=== PATIENT | female | born 1965 | race Caucasian/White ===

== ENCOUNTER 2016-05-03 00:23 | Inpatient (IN) | payer OTHER ==
[~2016-05-03] VITALS: Ht 162.6 cm; Wt 79.0 kg
[2016-05-03] VITALS (9 sets, daily range): BP systolic 106–166; BP diastolic 58–119
[~2016-05-03 00:23] MED LIST: ACETAMINOPHEN-H1 TA2 PO; ADDERALL 20 MG20 MG PO; ADDERALL XR20 MG PO; ALBUTEROL0.09 MG/A2 IH; AMOXICILLIN500 M2 PO; ANAPROX DS550 MG PO; AUGMENTIN 500 M1 TAB PO; FLAGYL500 MG PO; HYDR12.5C PO; K-TAB20 MEQ PO; LISINOPRIL10 M1 PO; LISINOPRIL20 MG PO; LOPRESSOR25 MG PO; MAGOX 400400 MG PO; MOBIC7.5 MG PO; MOTRIN800 MG PO; NEURONTIN300 MG PO; NEURONTIN600 MG PO; NEURONTIN800 MG PO; NICODERM C14 MG/24 H TD; ONDANSETRON H2 MG/ML PO; PANTOPRAZOLE SO40 MG PO; PEN-VEE K500 MG PO; PERCOCET 325 MG1 TA2 PO; REMERON45 M1 PO; ROBITUSSIN AC 110 ML PO; THERA TABS1 TAB PO; TRAMADOL HCL50 MG PO; ULTRAM50 MG PO; WELLBUTRIN SR150 MG PO; WELLBUTRIN SR200 MG PO; WELLBUTRIN100 M1 PO; Wellbutrin Sr100 MG PO; XANAX1 MG PO; ZOFRAN ODT4 MG SL
[2016-05-03 02:28] LABS: PROTHROMBIN TIME 10.6 SECONDS (9.0-12.4)
[2016-05-03 02:31] LABS: BILIRUBIN NEGATIVE (NEGATIVE); BLOOD NEGATIVE (NEGATIVE); CLARITY SL CLOUDY (CLEAR); COLOR YELLOW (YELLOW); GLUCOSE NEGATIVE (NEGATIVE); KETONE NEGATIVE (NEGATIVE); LEUKO ESTERASE 3+ (NEGATIVE); NITRITE POSITIVE (NEGATIVE); PROTEIN NEGATIVE (NEGATIVE); SPECIFIC GRAVITY <= 1.005 (1.005-1.030); UROBILINOGEN 0.2 E.U./dl (0.2-1.0)
[2016-05-03 02:35] LABS: ALBUMIN 3.2 gm/dl (3.1-4.5); ALKALINE PHOSPHATASE 215 U/L (45-117); BILIRUBIN, TOTAL 1.3 mg/dl (0.2-1.0); BUN 4 mg/dl (7-24); CARBON DIOXIDE 24 mmol/L (21-32); CHLORIDE 103 mmol/L (98-107); EST GLOM FILT AFRICAN AMERICAN > 60 ml/min; GLUCOSE 94 mg/dL (65-99); POTASSIUM 3.8 mmol/L (3.5-5.1); SGOT/AST 423 IU/L (3-35); SGPT/ALT 73 U/L (12-78); SODIUM 143 mmol/L (136-145); TOTAL PROTEIN 8.5 gm/dL (6.4-8.2)
[2016-05-03 02:39] LABS: MAGNESIUM 1.9 mg/dL (1.5-2.1)
[2016-05-03 02:41] LABS: C-REACTIVE PROTEIN < 0.29 MG/DL (0-0.3)
[2016-05-03 02:42] LABS: URINE AMPHETAMINES < 1000 (1000ng/ml); URINE BARBITURATES < 200 (200ng/ml); URINE COCAINE < 300 (300ng/ml)
[2016-05-03 02:45] LABS: HEMATOCRIT 36.4 % (37.0-47.0); HEMOGLOBIN 12.4 g/dl (12.0-16.0); MEAN CELL VOLUME 109.6 fl (81.0-99.0); MEAN CORPUSCULAR HGB 37.3 pg (27.0-31.0); MEAN CORPUSCULAR HGB CONC 34.1 g/dl (33.0-37.0); MEAN PLATELET VOLUME 9.8 fl (9.6-12.3); PLATELET COUNT AUTOMATED 169 10*3/uL (130-400); RED BLOOD COUNT 3.32 10*6/uL (4.10-5.10); RED CELL DISTRI WIDTH 16.8 % (0-14.5); WHITE BLOOD COUNT 5.1 10*3/uL (4.8-10.8)
[2016-05-03 02:56] LABS: WBC 21-30 wbc/hpf (0-5)
[2016-05-03 02:57] LABS: BACTERIA 2+
[2016-05-03 03:17] LABS: BASOPHIL # 0.1 10*3/uL (0-0.1); BASOPHILS 1 % (0-1); LYMPHOCYTE # 1.3 10*3/uL (1.3-4.4); MONOCYTE # 0.5 10*3/uL (0.1-1.0); NEUTROPHIL # 3.2 10*3/uL (2.3-7.9); NEUTROPHILS 63 % (47-73); PLATELET SUFFICIENCY NORMAL (NORMAL); TOTAL CELLS COUNTED 100 #CELLS
[2016-05-04] VITALS: BP 152/60
[2016-05-04 06:47] LABS: HEMATOCRIT 34.3 % (37.0-47.0); HEMOGLOBIN 11.1 g/dl (12.0-16.0); MEAN CORPUSCULAR HGB 37.1 pg (27.0-31.0); MEAN CORPUSCULAR HGB CONC 32.4 g/dl (33.0-37.0); MEAN PLATELET VOLUME 10.7 fl (9.6-12.3); NUCLEATED RED BLOOD CELL 0.5 % (0.0-0.0); RED BLOOD COUNT 2.99 10*6/uL (4.10-5.10); RED CELL DISTRI WIDTH 16.3 % (0-14.5); WHITE BLOOD COUNT 4.2 10*3/uL (4.8-10.8)
[2016-05-04 06:58] LABS: MEAN CELL VOLUME 114.7 fl (81.0-99.0); PLATELET COUNT AUTOMATED 108 10*3/uL (130-400)
[2016-05-04 07:19] LABS: INTERNATIONAL NORM RATIO 1.1 (2.0-3.5); PROTHROMBIN TIME 11.4 SECONDS (9.0-12.4)
[2016-05-04 07:20] LABS: BUN 6 mg/dl (7-24); CARBON DIOXIDE 27 mmol/L (21-32); CHLORIDE 106 mmol/L (98-107); CHOLESTEROL 111 mg/dL (<200); EST GLOM FILT AFRICAN AMERICAN > 60 ml/min; GLUCOSE 82 mg/dL (65-99); HDL CHOLESTEROL 54 mg/dl (40-60); LDL CHOLESTEROL 40 mg/dL (9-159); POTASSIUM 3.3 mmol/L (3.5-5.1); SODIUM 142 mmol/L (136-145); TRIGLYCERIDES 83 mg/dl (<150); VLDL CHOLESTEROL 17 mg/dL (6-40)
[2016-05-04 07:22] LABS: EOSINOPHILS 1 % (1-4); LYMPHOCYTE # 0.8 10*3/uL (1.3-4.4); NEUTROPHIL # 3.3 10*3/uL (2.3-7.9); NEUTROPHILS 79 % (47-73); TOTAL CELLS COUNTED 100 #CELLS
[2016-05-04 07:23] LABS: PLATELET SUFFICIENCY LOW (NORMAL); STOMATOCYTE MODERATE
[2016-05-04 08:00] VITALS: BP 112/78
[2016-05-04 12:00] VITALS: BP 122/74
[2016-05-04 16:00] VITALS: BP 133/77
[2016-05-05] VITALS: BP 113/78
[2016-05-05 07:05] LABS: HEMATOCRIT 33.8 % (37.0-47.0); HEMOGLOBIN 10.9 g/dl (12.0-16.0); MEAN CORPUSCULAR HGB 37.1 pg (27.0-31.0); MEAN CORPUSCULAR HGB CONC 32.2 g/dl (33.0-37.0); MEAN PLATELET VOLUME 10.7 fl (9.6-12.3); NUCLEATED RED BLOOD CELL 0.6 % (0.0-0.0); PLATELET COUNT AUTOMATED 93 10*3/uL (130-400); RED BLOOD COUNT 2.94 10*6/uL (4.10-5.10); RED CELL DISTRI WIDTH 16.3 % (0-14.5); WHITE BLOOD COUNT 3.4 10*3/uL (4.8-10.8)
[2016-05-05 07:10] LABS: BUN 5 mg/dl (7-24); CARBON DIOXIDE 20 mmol/L (21-32); CHLORIDE 112 mmol/L (98-107); EST GLOM FILT AFRICAN AMERICAN > 60 ml/min; GLUCOSE 97 mg/dL (65-99); POTASSIUM 3.7 mmol/L (3.5-5.1); SODIUM 143 mmol/L (136-145)
[2016-05-05 07:40] LABS: EOSINOPHILS 1 % (1-4); LYMPHOCYTE # 0.8 10*3/uL (1.3-4.4); MONOCYTE # 0.1 10*3/uL (0.1-1.0); NEUTROPHIL # 2.5 10*3/uL (2.3-7.9); NEUTROPHILS 73 % (47-73); PLATELET SUFFICIENCY LOW (NORMAL); STOMATOCYTE FEW; TOTAL CELLS COUNTED 100 #CELLS
[2016-05-05 08:00] VITALS: BP 135/86
[2016-05-05 12:00] VITALS: BP 157/110
[2016-05-05 16:00] VITALS: BP 134/88
[2016-05-05 20:00] VITALS: BP 142/77
[2016-05-06] VITALS: BP 136/72
[2016-05-06 06:23] LABS: HEMATOCRIT 31.4 % (37.0-47.0); HEMOGLOBIN 10.3 g/dl (12.0-16.0); MEAN CELL VOLUME 112.9 fl (81.0-99.0); MEAN CORPUSCULAR HGB 37.1 pg (27.0-31.0); MEAN CORPUSCULAR HGB CONC 32.8 g/dl (33.0-37.0); MEAN PLATELET VOLUME 10.7 fl (9.6-12.3); PLATELET COUNT AUTOMATED 100 10*3/uL (130-400); RED BLOOD COUNT 2.78 10*6/uL (4.10-5.10); RED CELL DISTRI WIDTH 16.3 % (0-14.5); WHITE BLOOD COUNT 2.9 10*3/uL (4.8-10.8)
[2016-05-06 07:10] LABS: BASOPHILS 1 % (0-1); EOSINOPHIL # 0.1 10*3/uL (0-0.4); EOSINOPHILS 3 % (1-4); LYMPHOCYTE # 0.9 10*3/uL (1.3-4.4); METAMYELOCYTES 1 % (0-0); MONOCYTE # 0.1 10*3/uL (0.1-1.0); NEUTROPHIL # 1.7 10*3/uL (2.3-7.9); NEUTROPHILS 60 % (47-73); PLATELET SUFFICIENCY LOW (NORMAL); POLYCHROMASIA SLIGHT; STOMATOCYTE FEW; TOTAL CELLS COUNTED 100 #CELLS
[2016-05-06 08:00] VITALS: BP 162/102
[2016-05-06 14:40] LABS: FOLIC ACID 2.09 ng/mL (>5.38)
[2016-05-29] MEDS ORDERED: LISINOPRIL20 MG PO (12:53)
[2016-06-01] MEDS ORDERED: ADDERALL XR20 MG PO (13:49)
[2016-06-01] MEDS ORDERED: WELLBUTRIN SR150 MG PO (13:49)
[2016-06-01] MEDS ORDERED: XANAX1 MG PO (13:49)
[2016-06-01] MEDS ORDERED: TRAMADOL HCL50 MG PO (13:49)
[2016-06-01] MEDS ORDERED: NEURONTIN600 MG PO (13:49)
[2016-06-01] MEDS ORDERED: ZOFRAN 4 MG ED2 TAB PO (16:23)
== END 2016-05-06 08:26 | disposition left against medical advice (07) | DRG 894 ==
LOC: ED 00:23 → 5E 05:56 → EDHOLD 05:56 → 5E 07:13
PROVIDERS: Emergency Medicine Emergency Medical Services; Family Medicine Adult Medicine; Internal Medicine
DX: F10.231 Alcohol dependence with withdrawal delirium (principal); E44.0 Moderate protein-calorie malnutrition; N39.0 Urinary tract infection, site not specified; F31.9 Bipolar disorder, unspecified; E83.51 Hypocalcemia; R25.1 Tremor, unspecified; D75.89 Other specified diseases of blood and blood-forming organs; F41.9 Anxiety disorder, unspecified; F17.200 Nicotine dependence, unspecified, uncomplicated; I10 Essential (primary) hypertension; B19.20 Unspecified viral hepatitis C without hepatic coma; E66.9 Obesity, unspecified; Z68.32 Body mass index [BMI] 32.0-32.9, adult; F10.221 Alcohol dependence with intoxication delirium

== ENCOUNTER 2016-05-22 13:06 | Emergency (ER) | payer OTHER ==
[~2016-05-22] VITALS: Wt 86.2 kg
[2016-05-22 13:25] VITALS: BP 117/89
[2016-05-22] MEDS ORDERED: ADDERALL XR20 MG PO (13:25)
[2016-05-22] MEDS ORDERED: PROCTOFOAM-HC 11 FOA RC (13:48)
[2016-05-22] MEDS ORDERED: COL-RITE100 M1 PO (13:48)
[2016-05-29] MEDS ORDERED: LISINOPRIL20 MG PO (12:53)
[2016-06-01] MEDS ORDERED: WELLBUTRIN SR150 MG PO (13:49)
[2016-06-01] MEDS ORDERED: NEURONTIN600 MG PO (13:49)
[2016-06-01] MEDS ORDERED: XANAX1 MG PO (13:49)
[2016-06-01] MEDS ORDERED: TRAMADOL HCL50 MG PO (13:49)
[2016-06-01] MEDS ORDERED: ADDERALL XR20 MG PO (13:49)
[2016-06-01] MEDS ORDERED: ZOFRAN 4 MG ED2 TAB PO (16:23)
== END 2016-05-22 14:05 | disposition home or self-care (01) ==
LOC: ED 13:06
DX: K62.89 Other specified diseases of anus and rectum (principal); F12.10 Cannabis abuse, uncomplicated; F17.200 Nicotine dependence, unspecified, uncomplicated; Z88.8 Allergy status to other drugs, medicaments and biological substances

== ENCOUNTER 2016-07-29 20:55 | Inpatient (IN) | payer OTHER ==
[~2016-07-29] VITALS: Ht 160 cm; Wt 82.6 kg
[~2016-07-29 20:55] MED LIST changes: +COL-RITE100 M1 PO; +PROCTOFOAM-HC 11 FOA RC; +ZOFRAN 4 MG ED2 TAB PO
[2016-07-29 21:04] VITALS: BP 122/81
[2016-07-29 21:22] VITALS: BP 113/90
[2016-07-29 21:25] LABS: BASO # 0.1 10*3/uL (0.0-0.1); BASO % 0.6 % (0.0-1.0); EOS % 0.3 % (1.0-4.0); HEMATOCRIT 33.6 % (37.0-47.0); LYMPH # 3.1 10*3/uL (1.3-4.4); LYMPH % 35.4 % (27.0-41.0); MEAN CELL VOLUME 102.8 fl (81.0-99.0); MEAN CORPUSCULAR HGB 36.7 pg (27.0-31.0); MEAN CORPUSCULAR HGB CONC 35.7 g/dl (33.0-37.0); MEAN PLATELET VOLUME 10.1 fl (9.6-12.3); MONO # 0.6 10*3/uL (0.1-1.0); MONO % 6.4 % (3.0-9.0); NUCLEATED RED BLOOD CELL 0.3 % (0.0-0.0); PLATELET COUNT AUTOMATED 200 10*3/uL (130-400); RED BLOOD COUNT 3.27 10*6/uL (4.10-5.10); RED CELL DISTRI WIDTH 18.7 % (0-14.5); WHITE BLOOD COUNT 8.8 10*3/uL (4.8-10.8)
[2016-07-29 21:36] VITALS: BP 118/88
[2016-07-29 21:36] LABS: INTERNATIONAL NORM RATIO 1.1 (2.0-3.5); PROTHROMBIN TIME 11.8 SECONDS (9.0-12.4)
[2016-07-29 21:45] LABS: ALBUMIN 2.2 gm/dl (3.1-4.5); ALKALINE PHOSPHATASE 315 U/L (45-117); BILIRUBIN, TOTAL 3.4 mg/dl (0.2-1.0); BUN 2 mg/dl (7-24); CARBON DIOXIDE 21 mmol/L (21-32); CHLORIDE 93 mmol/L (98-107); CKMB 1.3 ng/ml (0.5-3.6); CPK 64 U/L (26-192); EST GLOM FILT AFRICAN AMERICAN > 60 ml/min; GLUCOSE 97 mg/dL (65-99); POTASSIUM 2.8 mmol/L (3.5-5.1); SGOT/AST 243 IU/L (3-35); SGPT/ALT 45 U/L (12-78); SODIUM 134 mmol/L (136-145); TOTAL PROTEIN 7.1 gm/dL (6.4-8.2)
[2016-07-29 21:49] LABS: TROPONIN I < 0.015 ng/ml (<0.045)
[2016-07-29 21:56] VITALS: BP 103/65; BP 110/88
[2016-07-29 22:44] VITALS: BP 108/63
[2016-07-30 00:32] VITALS: BP 110/72
[2016-07-30 00:51] LABS: CKMB 1.8 ng/ml (0.5-3.6); CPK 52 U/L (26-192)
[2016-07-30 00:52] LABS: TROPONIN I < 0.015 ng/ml (<0.045)
[2016-07-30] MEDS ORDERED: REMERON45 M1 PO (01:10)
[2016-07-30] MEDS ORDERED: MULTI VITAMINS1 TAB PO (01:10)
[2016-07-30 01:28] VITALS: BP 103/59; BP 103/72
[2016-07-30 04:00] VITALS: BP 106/76
[2016-07-30 06:23] LABS: BASO % 0.4 % (0.0-1.0); EOS % 0.2 % (1.0-4.0); HEMATOCRIT 30.2 % (37.0-47.0); HEMOGLOBIN 10.3 g/dl (12.0-16.0); LYMPH # 1.1 10*3/uL (1.3-4.4); LYMPH % 20.4 % (27.0-41.0); MEAN CELL VOLUME 105.6 fl (81.0-99.0); MEAN CORPUSCULAR HGB CONC 34.1 g/dl (33.0-37.0); MEAN PLATELET VOLUME 10.5 fl (9.6-12.3); MONO # 0.4 10*3/uL (0.1-1.0); MONO % 6.9 % (3.0-9.0); NEUT # 3.8 10*3/uL (2.3-7.9); NEUT % 71.7 % (47.0-73.0); PLATELET COUNT AUTOMATED 171 10*3/uL (130-400); RED BLOOD COUNT 2.86 10*6/uL (4.10-5.10); RED CELL DISTRI WIDTH 19.7 % (0-14.5); WHITE BLOOD COUNT 5.4 10*3/uL (4.8-10.8)
[2016-07-30 06:32] LABS: CKMB 0.9 ng/ml (0.5-3.6); CPK 50 U/L (26-192)
[2016-07-30 06:33] LABS: TROPONIN I < 0.015 ng/ml (<0.045)
[2016-07-30 06:45] LABS: INTERNATIONAL NORM RATIO 1.1 (2.0-3.5)
[2016-07-30 06:49] LABS: CHLORIDE 103 mmol/L (98-107); POTASSIUM 2.7 mmol/L (3.5-5.1); SODIUM 140 mmol/L (136-145)
[2016-07-30 07:07] LABS: ALKALINE PHOSPHATASE 273 U/L (45-117); BILIRUBIN, DIRECT 2.9 mg/dL (0.0-0.2); BILIRUBIN, TOTAL 3.3 mg/dl (0.2-1.0); BUN 2 mg/dl (7-24); CARBON DIOXIDE 21 mmol/L (21-32); EST GLOM FILT AFRICAN AMERICAN > 60 ml/min; GLUCOSE 106 mg/dL (65-99); MAGNESIUM 1.8 mg/dL (1.5-2.1); PHOSPHOROUS 2.9 mg/dL (2.5-4.9); SGOT/AST 242 IU/L (3-35); SGPT/ALT 43 U/L (12-78); TOTAL PROTEIN 6.4 gm/dL (6.4-8.2)
[2016-07-30 08:00] VITALS: BP 120/85
[2016-07-30 12:14] LABS: CKMB 1.2 ng/ml (0.5-3.6); CPK 51 U/L (26-192); TROPONIN I < 0.015 ng/ml (<0.045)
[2016-07-30 16:00] VITALS: BP 130/98
[2016-07-30 20:00] VITALS: BP 100/70
[2016-07-31] VITALS (9 sets, daily range): BP systolic 110–150; BP diastolic 76–98
[2016-07-31 06:04] LABS: BILIRUBIN, TOTAL 5.4 mg/dl (0.2-1.0); BUN 3 mg/dl (7-24); CARBON DIOXIDE 22 mmol/L (21-32); CHLORIDE 106 mmol/L (98-107); EST GLOM FILT AFRICAN AMERICAN > 60 ml/min; GLUCOSE 88 mg/dL (65-99); POTASSIUM 3.2 mmol/L (3.5-5.1); SGOT/AST 225 IU/L (3-35); SGPT/ALT 41 U/L (12-78); SODIUM 140 mmol/L (136-145); TOTAL PROTEIN 6.5 gm/dL (6.4-8.2)
[2016-07-31 06:14] LABS: ALKALINE PHOSPHATASE 299 U/L (45-117)
[2016-07-31 06:48] LABS: HEMATOCRIT 30.8 % (37.0-47.0); HEMOGLOBIN 10.2 g/dl (12.0-16.0); MEAN CORPUSCULAR HGB 36.4 pg (27.0-31.0); MEAN CORPUSCULAR HGB CONC 33.1 g/dl (33.0-37.0); MEAN PLATELET VOLUME 10.9 fl (9.6-12.3); NUCLEATED RED BLOOD CELL 0.1 10*3/uL (0.0-0.0); NUCLEATED RED BLOOD CELL 0.9 % (0.0-0.0); PLATELET COUNT AUTOMATED 153 10*3/uL (130-400); RED CELL DISTRI WIDTH 19.9 % (0-14.5); WHITE BLOOD COUNT 5.8 10*3/uL (4.8-10.8)
[2016-07-31 07:36] LABS: BASOPHIL # 0.1 10*3/uL (0-0.1); BASOPHILS 1 % (0-1); LYMPHOCYTE # 0.9 10*3/uL (1.3-4.4); MONOCYTE # 0.3 10*3/uL (0.1-1.0); NEUTROPHIL # 4.5 10*3/uL (2.3-7.9); NEUTROPHILS 78 % (47-73); SPHEROCYTES FEW; TOTAL CELLS COUNTED 100 #CELLS
[2016-07-31 07:37] LABS: PLATELET SUFFICIENCY NORMAL (NORMAL); TARGET CELLS MODERATE
[2016-08-01] VITALS: BP 128/90
[2016-08-01 04:00] VITALS: BP 128/100
[2016-08-01 05:39] LABS: ALKALINE PHOSPHATASE 304 U/L (45-117); BUN 3 mg/dl (7-24); CARBON DIOXIDE 26 mmol/L (21-32); CHLORIDE 105 mmol/L (98-107); EST GLOM FILT AFRICAN AMERICAN > 60 ml/min; GLUCOSE 97 mg/dL (65-99); SGOT/AST 185 IU/L (3-35); SGPT/ALT 44 U/L (12-78); SODIUM 141 mmol/L (136-145); TOTAL PROTEIN 6.5 gm/dL (6.4-8.2)
[2016-08-01 06:51] LABS: HEMATOCRIT 31.2 % (37.0-47.0); HEMOGLOBIN 9.9 g/dl (12.0-16.0); MEAN CORPUSCULAR HGB 36.3 pg (27.0-31.0); MEAN CORPUSCULAR HGB CONC 31.7 g/dl (33.0-37.0); MEAN PLATELET VOLUME 10.5 fl (9.6-12.3); NUCLEATED RED BLOOD CELL 0.1 10*3/uL (0.0-0.0); NUCLEATED RED BLOOD CELL 2.2 % (0.0-0.0); PLATELET COUNT AUTOMATED 156 10*3/uL (130-400); RED BLOOD COUNT 2.73 10*6/uL (4.10-5.10); RED CELL DISTRI WIDTH 20.4 % (0-14.5); WHITE BLOOD COUNT 5.9 10*3/uL (4.8-10.8)
[2016-08-01 06:52] LABS: MEAN CELL VOLUME 114.3 fl (81.0-99.0)
[2016-08-01 07:37] LABS: BASOPHIL # 0.1 10*3/uL (0-0.1); BASOPHILS 1 % (0-1); LYMPHOCYTE # 0.6 10*3/uL (1.3-4.4); MONOCYTE # 0.4 10*3/uL (0.1-1.0); MYELOCYTES 1 % (0-0); NEUTROPHIL # 4.8 10*3/uL (2.3-7.9); NEUTROPHILS 82 % (47-73); PLATELET SUFFICIENCY NORMAL (NORMAL); TARGET CELLS MODERATE; TOTAL CELLS COUNTED 100 #CELLS
[2016-08-01 08:00] VITALS: BP 180/89
[2016-08-01 12:00] VITALS: BP 120/70
[2016-08-01 20:00] VITALS: BP 131/90
[2016-08-02] VITALS: BP 130/84
[2016-08-02 04:00] VITALS: BP 126/86
[2016-08-02 06:09] LABS: HEMATOCRIT 30.4 % (37.0-47.0); HEMOGLOBIN 9.9 g/dl (12.0-16.0); MEAN CELL VOLUME 115.2 fl (81.0-99.0); MEAN CORPUSCULAR HGB 37.5 pg (27.0-31.0); MEAN CORPUSCULAR HGB CONC 32.6 g/dl (33.0-37.0); MEAN PLATELET VOLUME 10.6 fl (9.6-12.3); NUCLEATED RED BLOOD CELL 0.1 10*3/uL (0.0-0.0); NUCLEATED RED BLOOD CELL 1.8 % (0.0-0.0); PLATELET COUNT AUTOMATED 153 10*3/uL (130-400); RED BLOOD COUNT 2.64 10*6/uL (4.10-5.10); RED CELL DISTRI WIDTH 20.9 % (0-14.5); WHITE BLOOD COUNT 6.2 10*3/uL (4.8-10.8)
[2016-08-02 06:33] LABS: ALBUMIN 2.1 gm/dl (3.1-4.5); ALKALINE PHOSPHATASE 275 U/L (45-117); BILIRUBIN, TOTAL 4.8 mg/dl (0.2-1.0); BUN 3 mg/dl (7-24); CARBON DIOXIDE 25 mmol/L (21-32); CHLORIDE 108 mmol/L (98-107); EST GLOM FILT AFRICAN AMERICAN > 60 ml/min; GLUCOSE 106 mg/dL (65-99); POTASSIUM 3.6 mmol/L (3.5-5.1); SGOT/AST 146 IU/L (3-35); SGPT/ALT 39 U/L (12-78); SODIUM 144 mmol/L (136-145)
[2016-08-02 06:52] LABS: LYMPHOCYTE # 0.9 10*3/uL (1.3-4.4); MONOCYTE # 0.4 10*3/uL (0.1-1.0); NEUTROPHILS 80 % (47-73); PLATELET SUFFICIENCY NORMAL (NORMAL); POLYCHROMASIA SLIGHT; TARGET CELLS MODERATE; TOTAL CELLS COUNTED 100 #CELLS
[2016-08-02 08:00] VITALS: BP 135/91; BP 140/80
[2016-08-02 12:00] VITALS: BP 104/79
[2016-08-02 16:00] VITALS: BP 105/79
[2016-08-02 20:00] VITALS: BP 128/85
[2016-08-03] VITALS: BP 106/75
[2016-08-03 04:00] VITALS: BP 153/95
[2016-08-03 05:49] LABS: BILIRUBIN, TOTAL 4.2 mg/dl (0.2-1.0); BUN 3 mg/dl (7-24); CARBON DIOXIDE 28 mmol/L (21-32); CHLORIDE 106 mmol/L (98-107); EST GLOM FILT AFRICAN AMERICAN > 60 ml/min; GLUCOSE 97 mg/dL (65-99); POTASSIUM 3.6 mmol/L (3.5-5.1); SGOT/AST 108 IU/L (3-35); SGPT/ALT 35 U/L (12-78); SODIUM 142 mmol/L (136-145); TOTAL PROTEIN 6.3 gm/dL (6.4-8.2)
[2016-08-03 05:50] LABS: ALKALINE PHOSPHATASE 243 U/L (45-117)
[2016-08-03 05:59] LABS: HEMATOCRIT 30.8 % (37.0-47.0); HEMOGLOBIN 9.7 g/dl (12.0-16.0); MEAN CELL VOLUME 116.7 fl (81.0-99.0); MEAN CORPUSCULAR HGB 36.7 pg (27.0-31.0); MEAN CORPUSCULAR HGB CONC 31.5 g/dl (33.0-37.0); MEAN PLATELET VOLUME 10.7 fl (9.6-12.3); NUCLEATED RED BLOOD CELL 0.6 % (0.0-0.0); PLATELET COUNT AUTOMATED 152 10*3/uL (130-400); RED BLOOD COUNT 2.64 10*6/uL (4.10-5.10); RED CELL DISTRI WIDTH 22.1 % (0-14.5); WHITE BLOOD COUNT 5.1 10*3/uL (4.8-10.8)
[2016-08-03 07:18] LABS: LYMPHOCYTE # 0.7 10*3/uL (1.3-4.4); MONOCYTE # 0.3 10*3/uL (0.1-1.0); MYELOCYTES 1 % (0-0); NEUTROPHILS 79 % (47-73); PLATELET SUFFICIENCY NORMAL (NORMAL); SPHEROCYTES FEW; TARGET CELLS MANY; TOTAL CELLS COUNTED 100 #CELLS
[2016-08-03 07:21] LABS: POLYCHROMASIA SLIGHT
[2016-08-03 08:00] VITALS: BP 135/91
[2016-08-03 12:00] VITALS: BP 147/84
[2016-08-03] MEDS ORDERED: WELLBUTRIN SR150 MG PO (12:45)
[2016-08-03] MEDS ORDERED: CLINDAMYCIN HC300 MG PO (12:45)
[2016-08-03] MEDS ORDERED: Anusol Hc,Anuco25 MG R (12:45)
[2016-08-03] MEDS ORDERED: NEURONTIN600 MG PO (12:45)
[2016-08-03] MEDS ORDERED: PROTONIX40 MG PO (12:45)
[2016-08-03 16:00] VITALS: BP 127/87
== END 2016-08-03 17:40 | disposition home or self-care (01) | DRG 896 ==
LOC: ED 20:55 → ICCU 23:36 → EDHOLD 23:36 → ICCU 23:54
PROVIDERS: Emergency Medicine Emergency Medical Services; Internal Medicine; Student in an Organized Health Care Education/Training Program
PROC: 0DB68ZX Excision of Stomach, Via Natural or Artificial Opening Endoscopic, Diagnostic (ICD-10-PCS; principal; 2016-08-03)
PROC: 0DBE8ZX Excision of Large Intestine, Via Natural or Artificial Opening Endoscopic, Diagnostic (ICD-10-PCS; 2016-08-03)
DX: F10.129 Alcohol abuse with intoxication, unspecified (principal); E43 Unspecified severe protein-calorie malnutrition; J69.0 Pneumonitis due to inhalation of food and vomit; G93.41 Metabolic encephalopathy; I11.0 Hypertensive heart disease with heart failure; I50.32 Chronic diastolic (congestive) heart failure; K22.10 Ulcer of esophagus without bleeding; E87.6 Hypokalemia; F41.9 Anxiety disorder, unspecified; F31.9 Bipolar disorder, unspecified; M19.90 Unspecified osteoarthritis, unspecified site; D53.9 Nutritional anemia, unspecified; R00.0 Tachycardia, unspecified; E80.6 Other disorders of bilirubin metabolism; K20.9 Esophagitis, unspecified; K29.20 Alcoholic gastritis without bleeding; K62.89 Other specified diseases of anus and rectum; R74.0 Nonspecific elevation of levels of transaminase and lactic acid dehydrogenase [LDH]; Z68.30 Body mass index [BMI] 30.0-30.9, adult; Z82.49 Family history of ischemic heart disease and other diseases of the circulatory system; Z88.8 Allergy status to other drugs, medicaments and biological substances; Z79.899 Other long term (current) drug therapy; Z86.19 Personal history of other infectious and parasitic diseases

== ENCOUNTER 2016-08-09 09:25 | Inpatient (IN) | payer OTHER ==
[~2016-08-09] VITALS: Ht 162.5 cm; Wt 81.8 kg
[~2016-08-09 09:25] MED LIST changes: +Anusol Hc,Anuco25 MG R; +CLINDAMYCIN HC300 MG PO; +MULTI VITAMINS1 TAB PO; +PROTONIX40 MG PO
[2016-08-09 09:30] VITALS: BP 126/100
[2016-08-09 10:02] LABS: HEMATOCRIT 32.6 % (37.0-47.0); HEMOGLOBIN 10.3 g/dl (12.0-16.0); MEAN CELL VOLUME 118.5 fl (81.0-99.0); MEAN CORPUSCULAR HGB 37.5 pg (27.0-31.0); MEAN CORPUSCULAR HGB CONC 31.6 g/dl (33.0-37.0); MEAN PLATELET VOLUME 10.6 fl (9.6-12.3); PLATELET COUNT AUTOMATED 251 10*3/uL (130-400); RED BLOOD COUNT 2.75 10*6/uL (4.10-5.10); RED CELL DISTRI WIDTH 19.3 % (0-14.5); WHITE BLOOD COUNT 7.8 10*3/uL (4.8-10.8)
[2016-08-09 10:13] LABS: INTERNATIONAL NORM RATIO 1.1 (2.0-3.5); PROTHROMBIN TIME 11.5 SECONDS (9.0-12.4)
[2016-08-09 10:19] LABS: ALKALINE PHOSPHATASE 155 U/L (45-117); BILIRUBIN, DIRECT 2.2 mg/dL (0.0-0.2); BILIRUBIN, TOTAL 2.8 mg/dl (0.2-1.0); BUN 4 mg/dl (7-24); CARBON DIOXIDE 26 mmol/L (21-32); CHLORIDE 106 mmol/L (98-107); EST GLOM FILT AFRICAN AMERICAN > 60 ml/min; GLUCOSE 113 mg/dL (65-99); SGOT/AST 52 IU/L (3-35); SGPT/ALT 25 U/L (12-78); SODIUM 141 mmol/L (136-145); TOTAL PROTEIN 6.6 gm/dL (6.4-8.2)
[2016-08-09 10:27] LABS: LYMPHOCYTE # 1.4 10*3/uL (1.3-4.4); MONOCYTE # 0.2 10*3/uL (0.1-1.0); NEUTROPHIL # 6.2 10*3/uL (2.3-7.9); NEUTROPHILS 79 % (47-73); TOTAL CELLS COUNTED 100 #CELLS
[2016-08-09 10:28] LABS: PLATELET SUFFICIENCY NORMAL (NORMAL)
[2016-08-09 10:29] LABS: STOMATOCYTE FEW
[2016-08-09 10:32] LABS: BILIRUBIN NEGATIVE (NEGATIVE); BLOOD TRACE-LYSED (NEGATIVE); CLARITY SL CLOUDY (CLEAR); COLOR YELLOW (YELLOW); GLUCOSE NEGATIVE (NEGATIVE); KETONE NEGATIVE (NEGATIVE); LEUKO ESTERASE 3+ (NEGATIVE); NITRITE POSITIVE (NEGATIVE); PH 6.5 (5.0-9.0); PROTEIN NEGATIVE (NEGATIVE); UROBILINOGEN 0.2 E.U./dl (0.2-1.0)
[2016-08-09 10:43] LABS: URINE AMPHETAMINES < 1000 (1000ng/ml); URINE BARBITURATES < 200 (200ng/ml); URINE COCAINE < 300 (300ng/ml)
[2016-08-09 10:46] LABS: BACTERIA 4+; URINE REFLEX COMMENT YES (NO); WBC 41-50 wbc/hpf (0-5)
[2016-08-09 10:58] VITALS: BP 147/93
[2016-08-09 11:59] LABS: LA>2 REFLEX 2 HR DRAW NOW
[2016-08-09 12:00] VITALS: BP 130/86
[2016-08-09 16:00] VITALS: BP 109/67
[2016-08-09 18:21] LABS: CKMB 0.5 ng/ml (0.5-3.6); CPK 28 U/L (26-192); TROPONIN I < 0.015 ng/ml (<0.045)
[2016-08-09 20:00] VITALS: BP 102/77
[2016-08-10] VITALS (7 sets, daily range): BP systolic 99–152; BP diastolic 73–98
[2016-08-10 00:50] LABS: CPK 24 U/L (26-192)
[2016-08-10 00:52] LABS: CKMB < 0.5 ng/ml (0.5-3.6); TROPONIN I < 0.015 ng/ml (<0.045)
[2016-08-10 06:02] LABS: HEMOGLOBIN 9.3 g/dl (12.0-16.0); MEAN CORPUSCULAR HGB 36.9 pg (27.0-31.0); MEAN PLATELET VOLUME 10.5 fl (9.6-12.3); NUCLEATED RED BLOOD CELL 0.4 % (0.0-0.0); PLATELET COUNT AUTOMATED 225 10*3/uL (130-400); RED BLOOD COUNT 2.52 10*6/uL (4.10-5.10); RED CELL DISTRI WIDTH 18.3 % (0-14.5); WHITE BLOOD COUNT 5.7 10*3/uL (4.8-10.8)
[2016-08-10 06:20] LABS: INTERNATIONAL NORM RATIO 1.1 (2.0-3.5); PROTHROMBIN TIME 11.2 SECONDS (9.0-12.4)
[2016-08-10 06:21] LABS: CPK 21 U/L (26-192)
[2016-08-10 06:22] LABS: CKMB < 0.5 ng/ml (0.5-3.6)
[2016-08-10 06:23] LABS: TROPONIN I < 0.015 ng/ml (<0.045)
[2016-08-10 06:34] LABS: ALBUMIN 1.8 gm/dl (3.1-4.5); ALKALINE PHOSPHATASE 131 U/L (45-117); BILIRUBIN, TOTAL 2.1 mg/dl (0.2-1.0); BUN 5 mg/dl (7-24); CARBON DIOXIDE 24 mmol/L (21-32); CHLORIDE 111 mmol/L (98-107); EST GLOM FILT AFRICAN AMERICAN > 60 ml/min; GLUCOSE 92 mg/dL (65-99); MAGNESIUM 1.5 mg/dL (1.5-2.1); POTASSIUM 3.5 mmol/L (3.5-5.1); SGOT/AST 49 IU/L (3-35); SGPT/ALT 21 U/L (12-78); SODIUM 144 mmol/L (136-145); TOTAL PROTEIN 5.9 gm/dL (6.4-8.2)
[2016-08-10 07:01] LABS: EOSINOPHIL # 0.1 10*3/uL (0-0.4); EOSINOPHILS 2 % (1-4); LYMPHOCYTE # 1.5 10*3/uL (1.3-4.4); MONOCYTE # 0.6 10*3/uL (0.1-1.0); NEUTROPHIL # 3.5 10*3/uL (2.3-7.9); NEUTROPHILS 62 % (47-73); TOTAL CELLS COUNTED 100 #CELLS
[2016-08-10 07:02] LABS: PLATELET SUFFICIENCY NORMAL (NORMAL); POLYCHROMASIA SLIGHT
[2016-08-11] VITALS: BP 124/88
[2016-08-11 08:00] VITALS: BP 137/85
[2016-08-11 08:49] LABS: HEMATOCRIT 34.1 % (37.0-47.0); HEMOGLOBIN 10.6 g/dl (12.0-16.0); MEAN CELL VOLUME 121.8 fl (81.0-99.0); MEAN CORPUSCULAR HGB 37.9 pg (27.0-31.0); MEAN CORPUSCULAR HGB CONC 31.1 g/dl (33.0-37.0); PLATELET COUNT AUTOMATED 279 10*3/uL (130-400); RED CELL DISTRI WIDTH 17.4 % (0-14.5); WHITE BLOOD COUNT 6.6 10*3/uL (4.8-10.8)
[2016-08-11 09:36] LABS: LYMPHOCYTE # 1.3 10*3/uL (1.3-4.4); MONOCYTE # 0.5 10*3/uL (0.1-1.0); NEUTROPHIL # 4.8 10*3/uL (2.3-7.9); NEUTROPHILS 73 % (47-73); PLATELET SUFFICIENCY NORMAL (NORMAL); TOTAL CELLS COUNTED 100 #CELLS
[2016-08-11 11:15] LABS: URINE AMPHETAMINES < 1000 (1000ng/ml); URINE BARBITURATES < 200 (200ng/ml); URINE COCAINE < 300 (300ng/ml)
[2016-08-11 12:00] VITALS: BP 134/90
[2016-08-11 16:00] VITALS: BP 113/84
[2016-08-11 20:00] VITALS: BP 127/86
[2016-08-11 21:05] LABS: HEPATITIS C QUANTITATION 190000 IU/mL (.)
[2016-08-12] VITALS: BP 129/85
[2016-08-12 07:02] LABS: HEMATOCRIT 35.1 % (37.0-47.0); MEAN CORPUSCULAR HGB 37.3 pg (27.0-31.0); MEAN CORPUSCULAR HGB CONC 31.3 g/dl (33.0-37.0); MEAN PLATELET VOLUME 10.1 fl (9.6-12.3); PLATELET COUNT AUTOMATED 323 10*3/uL (130-400); RED BLOOD COUNT 2.95 10*6/uL (4.10-5.10); RED CELL DISTRI WIDTH 17.1 % (0-14.5); WHITE BLOOD COUNT 6.7 10*3/uL (4.8-10.8)
[2016-08-12 07:22] LABS: ALBUMIN 2.1 gm/dl (3.1-4.5); ALKALINE PHOSPHATASE 151 U/L (45-117); BILIRUBIN, TOTAL 1.9 mg/dl (0.2-1.0); BUN 5 mg/dl (7-24); CARBON DIOXIDE 23 mmol/L (21-32); CHLORIDE 111 mmol/L (98-107); EST GLOM FILT AFRICAN AMERICAN > 60 ml/min; GLUCOSE 80 mg/dL (65-99); SGOT/AST 65 IU/L (3-35); SGPT/ALT 22 U/L (12-78); SODIUM 145 mmol/L (136-145); TOTAL PROTEIN 7.1 gm/dL (6.4-8.2)
[2016-08-12 08:00] VITALS: BP 133/88
[2016-08-12 08:03] LABS: EOSINOPHIL # 0.1 10*3/uL (0-0.4); EOSINOPHILS 1 % (1-4); LYMPHOCYTE # 2.1 10*3/uL (1.3-4.4); MONOCYTE # 0.5 10*3/uL (0.1-1.0); NEUTROPHILS 60 % (47-73); PLATELET SUFFICIENCY NORMAL (NORMAL); TOTAL CELLS COUNTED 100 #CELLS
[2016-08-12 16:00] VITALS: BP 138/90
[2016-08-13] VITALS: BP 140/84
[2016-08-13 06:47] LABS: HEMATOCRIT 32.4 % (37.0-47.0); HEMOGLOBIN 10.3 g/dl (12.0-16.0); MEAN CELL VOLUME 119.1 fl (81.0-99.0); MEAN CORPUSCULAR HGB 37.9 pg (27.0-31.0); MEAN CORPUSCULAR HGB CONC 31.8 g/dl (33.0-37.0); MEAN PLATELET VOLUME 10.1 fl (9.6-12.3); PLATELET COUNT AUTOMATED 310 10*3/uL (130-400); RED BLOOD COUNT 2.72 10*6/uL (4.10-5.10); RED CELL DISTRI WIDTH 16.5 % (0-14.5); WHITE BLOOD COUNT 7.2 10*3/uL (4.8-10.8)
[2016-08-13 07:06] LABS: BASOPHIL # 0.2 10*3/uL (0-0.1); BASOPHILS 3 % (0-1); EOSINOPHIL # 0.1 10*3/uL (0-0.4); EOSINOPHILS 1 % (1-4); LYMPHOCYTE # 1.4 10*3/uL (1.3-4.4); MONOCYTE # 0.4 10*3/uL (0.1-1.0); NEUTROPHIL # 5.2 10*3/uL (2.3-7.9); NEUTROPHILS 72 % (47-73); PLATELET SUFFICIENCY NORMAL (NORMAL); POLYCHROMASIA SLIGHT; TOTAL CELLS COUNTED 100 #CELLS
[2016-08-13 07:14] LABS: ALBUMIN 2.1 gm/dl (3.1-4.5); ALKALINE PHOSPHATASE 127 U/L (45-117); BILIRUBIN, TOTAL 1.7 mg/dl (0.2-1.0); BUN 4 mg/dl (7-24); CARBON DIOXIDE 24 mmol/L (21-32); CHLORIDE 108 mmol/L (98-107); EST GLOM FILT AFRICAN AMERICAN > 60 ml/min; GLUCOSE 88 mg/dL (65-99); POTASSIUM 3.8 mmol/L (3.5-5.1); SGOT/AST 66 IU/L (3-35); SGPT/ALT 22 U/L (12-78); SODIUM 141 mmol/L (136-145); TOTAL PROTEIN 6.7 gm/dL (6.4-8.2)
[2016-08-13 08:18] VITALS: BP 127/80
[2016-08-13 12:01] VITALS: BP 124/78
[2016-08-13] MEDS ORDERED: LOPRESSOR25 MG PO (13:20)
[2016-08-13] MEDS ORDERED: NAPROSYN EC375 MG PO (13:22)
== END 2016-08-13 14:59 | disposition home or self-care (01) | DRG 689 ==
LOC: ED 09:25 → 4E 11:01 → EDHOLD 11:01 → 4E 11:31
PROVIDERS: Emergency Medicine; Internal Medicine; Internal Medicine Hospice and Palliative Medicine; Student in an Organized Health Care Education/Training Program
DX: N39.0 Urinary tract infection, site not specified (principal); E43 Unspecified severe protein-calorie malnutrition; I50.32 Chronic diastolic (congestive) heart failure; I11.0 Hypertensive heart disease with heart failure; R18.8 Other ascites; R10.9 Unspecified abdominal pain; R74.8 Abnormal levels of other serum enzymes; F31.9 Bipolar disorder, unspecified; B18.2 Chronic viral hepatitis C; F10.10 Alcohol abuse, uncomplicated; D53.9 Nutritional anemia, unspecified; E80.6 Other disorders of bilirubin metabolism; M19.90 Unspecified osteoarthritis, unspecified site; F17.200 Nicotine dependence, unspecified, uncomplicated; B96.1 Klebsiella pneumoniae [K. pneumoniae] as the cause of diseases classified elsewhere; Z68.30 Body mass index [BMI] 30.0-30.9, adult; Z82.49 Family history of ischemic heart disease and other diseases of the circulatory system; Z88.8 Allergy status to other drugs, medicaments and biological substances; Z79.899 Other long term (current) drug therapy

== ENCOUNTER 2016-08-23 09:50 | Emergency (ER) | payer OTHER ==
[~2016-08-23] VITALS: Ht 160 cm; Wt 86.2 kg
[~2016-08-23 09:50] MED LIST changes: +NAPROSYN EC375 MG PO
[2016-08-23 10:41] LABS: HEMATOCRIT 35.7 % (37.0-47.0); HEMOGLOBIN 11.6 g/dl (12.0-16.0); MEAN CELL VOLUME 110.9 fl (81.0-99.0); MEAN CORPUSCULAR HGB CONC 32.5 g/dl (33.0-37.0); MEAN PLATELET VOLUME 10.4 fl (9.6-12.3); PLATELET COUNT AUTOMATED 234 10*3/uL (130-400); RED BLOOD COUNT 3.22 10*6/uL (4.10-5.10); RED CELL DISTRI WIDTH 14.1 % (0-14.5); WHITE BLOOD COUNT 7.5 10*3/uL (4.8-10.8)
[2016-08-23 10:50] LABS: INTERNATIONAL NORM RATIO 1.1 (2.0-3.5); PROTHROMBIN TIME 11.4 SECONDS (9.0-12.4)
[2016-08-23 10:57] LABS: ALBUMIN 2.3 gm/dl (3.1-4.5); ALKALINE PHOSPHATASE 270 U/L (45-117); BILIRUBIN, TOTAL 1.7 mg/dl (0.2-1.0); CARBON DIOXIDE 22 mmol/L (21-32); CHLORIDE 108 mmol/L (98-107); EST GLOM FILT AFRICAN AMERICAN > 60 ml/min; GLUCOSE 137 mg/dL (65-99); MAGNESIUM 1.8 mg/dL (1.5-2.1); POTASSIUM 3.1 mmol/L (3.5-5.1); SGOT/AST 209 IU/L (3-35); SGPT/ALT 47 U/L (12-78); SODIUM 146 mmol/L (136-145); TOTAL PROTEIN 7.4 gm/dL (6.4-8.2)
[2016-08-23 11:00] LABS: BUN < 1 mg/dl (7-24)
[2016-08-23 11:01] LABS: BASOPHIL # 0.2 10*3/uL (0-0.1); BASOPHILS 2 % (0-1); EOSINOPHIL # 0.1 10*3/uL (0-0.4); EOSINOPHILS 1 % (1-4); METAMYELOCYTES 1 % (0-0); MONOCYTE # 0.3 10*3/uL (0.1-1.0); NEUTROPHIL # 4.9 10*3/uL (2.3-7.9); NEUTROPHILS 65 % (47-73); PLATELET SUFFICIENCY NORMAL (NORMAL); ROULEAUX MODERATE; TOTAL CELLS COUNTED 100 #CELLS; TROPONIN I < 0.015 ng/ml (<0.045)
[2016-08-23 11:29] VITALS: BP 150/95
[2016-08-23 12:37] LABS: LA>2 REFLEX 2 HR DRAW NOW
== END 2016-08-23 12:54 | disposition short-term general hospital (02) ==
LOC: ED 09:50
PROVIDERS: Nurse Practitioner Family
DX: K62.3 Rectal prolapse (principal); E86.0 Dehydration; R10.30 Lower abdominal pain, unspecified; F10.129 Alcohol abuse with intoxication, unspecified; E87.6 Hypokalemia; F17.200 Nicotine dependence, unspecified, uncomplicated; F41.9 Anxiety disorder, unspecified; I99.8 Other disorder of circulatory system; I10 Essential (primary) hypertension; M19.90 Unspecified osteoarthritis, unspecified site; F31.9 Bipolar disorder, unspecified; Z88.8 Allergy status to other drugs, medicaments and biological substances; Z79.899 Other long term (current) drug therapy

== ENCOUNTER 2016-09-28 10:43 | Inpatient (IN) | payer OTHER ==
[~2016-09-28] VITALS: Ht 160 cm; Wt 72.6 kg
[2016-09-28 11:22] LABS: BASO # 0.1 10*3/uL (0.0-0.1); BASO % 0.8 % (0.0-1.0); HEMOGLOBIN 13.2 g/dl (12.0-16.0); LYMPH % 31.8 % (27.0-41.0); MEAN CELL VOLUME 103.4 fl (81.0-99.0); MEAN CORPUSCULAR HGB 34.1 pg (27.0-31.0); MEAN PLATELET VOLUME 10.9 fl (9.6-12.3); MONO # 0.4 10*3/uL (0.1-1.0); MONO % 6.8 % (3.0-9.0); NEUT # 3.7 10*3/uL (2.3-7.9); NEUT % 60.4 % (47.0-73.0); PLATELET COUNT AUTOMATED 124 10*3/uL (130-400); RED BLOOD COUNT 3.87 10*6/uL (4.10-5.10); RED CELL DISTRI WIDTH 17.2 % (0-14.5); WHITE BLOOD COUNT 6.2 10*3/uL (4.8-10.8)
[2016-09-28 11:31] LABS: INTERNATIONAL NORM RATIO 1.1 (2.0-3.5); PROTHROMBIN TIME 12.2 SECONDS (9.0-12.4)
[2016-09-28 11:39] LABS: ALBUMIN 2.6 gm/dl (3.1-4.5); ALKALINE PHOSPHATASE 561 U/L (45-117); BILIRUBIN, TOTAL 4.6 mg/dl (0.2-1.0); BUN 2 mg/dl (7-24); CARBON DIOXIDE 22 mmol/L (21-32); CHLORIDE 103 mmol/L (98-107); EST GLOM FILT AFRICAN AMERICAN > 60 ml/min; GLUCOSE 116 mg/dL (65-99); MAGNESIUM 1.3 mg/dL (1.5-2.1); POTASSIUM 3.5 mmol/L (3.5-5.1); SGOT/AST 650 IU/L (3-35); SGPT/ALT 123 U/L (12-78); SODIUM 141 mmol/L (136-145); TOTAL PROTEIN 8.4 gm/dL (6.4-8.2)
[2016-09-28 11:40] VITALS: BP 130/78
[2016-09-28 11:40] LABS: TROPONIN I < 0.015 ng/ml (<0.045)
[2016-09-28 12:10] VITALS: BP 132/84
[2016-09-28 12:44] LABS: BILIRUBIN 2+ (NEGATIVE); BLOOD TRACE-INTACT (NEGATIVE); CLARITY CLOUDY (CLEAR); COLOR YELLOW (YELLOW); GLUCOSE NEGATIVE (NEGATIVE); KETONE NEGATIVE (NEGATIVE); LEUKO ESTERASE 1+ (NEGATIVE); NITRITE POSITIVE (NEGATIVE); PH 5.5 (5.0-9.0); PROTEIN TRACE (NEGATIVE); SPECIFIC GRAVITY 1.015 (1.005-1.030)
[2016-09-28 12:54] LABS: BACTERIA 3+; URINE REFLEX COMMENT YES (NO)
[2016-09-28 13:15] VITALS: BP 130/80
[2016-09-28 13:24] LABS: URINE AMPHETAMINES < 1000 (1000ng/ml); URINE BARBITURATES < 200 (200ng/ml); URINE COCAINE < 300 (300ng/ml)
[2016-09-28 14:21] VITALS: BP 128/98
[2016-09-28 16:30] VITALS: BP 132/84
[2016-09-28 20:00] VITALS: BP 115/77
[2016-09-29] VITALS: BP 95/59
[2016-09-29 08:00] VITALS: BP 105/76
[2016-09-29] MEDS ORDERED: PROTONIX40 MG PO (10:41)
[2016-09-29] MEDS ORDERED: VALIUM5 MG PO (10:41)
[2016-09-29 12:00] VITALS: BP 114/79
[2016-09-29 16:00] VITALS: BP 108/81
== END 2016-09-29 19:52 | disposition left against medical advice (07) | DRG 894 ==
LOC: ED 10:43 → EDHOLD 14:08 → 4E 14:08 → EDHOLD 14:27 → ICCU 14:28 → 4E 14:45
PROVIDERS: Emergency Medicine
DX: F10.230 Alcohol dependence with withdrawal, uncomplicated (principal); E43 Unspecified severe protein-calorie malnutrition; I50.32 Chronic diastolic (congestive) heart failure; N39.0 Urinary tract infection, site not specified; F41.9 Anxiety disorder, unspecified; F31.9 Bipolar disorder, unspecified; I10 Essential (primary) hypertension; B19.20 Unspecified viral hepatitis C without hepatic coma; E66.9 Obesity, unspecified; M19.90 Unspecified osteoarthritis, unspecified site; Z53.21 Procedure and treatment not carried out due to patient leaving prior to being seen by health care provider; F12.90 Cannabis use, unspecified, uncomplicated; D53.9 Nutritional anemia, unspecified; B96.89 Other specified bacterial agents as the cause of diseases classified elsewhere; F17.200 Nicotine dependence, unspecified, uncomplicated; Z82.49 Family history of ischemic heart disease and other diseases of the circulatory system; Z88.8 Allergy status to other drugs, medicaments and biological substances; Z79.899 Other long term (current) drug therapy; Z68.27 Body mass index [BMI] 27.0-27.9, adult

== ENCOUNTER 2016-11-11 16:54 | Inpatient (IN) | payer OTHER ==
[~2016-11-11] VITALS: Ht 165 cm; Wt 70.4 kg
[~2016-11-11 16:54] MED LIST changes: +VALIUM5 MG PO
[2016-11-11 17:02] VITALS: BP 132/92
[2016-11-11 17:26] LABS: BASO # 0.1 10*3/uL (0.0-0.1); BASO % 0.7 % (0.0-1.0); EOS # 0.1 10*3/uL (0.0-0.4); EOS % 0.7 % (1.0-4.0); HEMATOCRIT 34.7 % (37.0-47.0); HEMOGLOBIN 11.9 g/dl (12.0-16.0); LYMPH # 2.2 10*3/uL (1.3-4.4); LYMPH % 33.4 % (27.0-41.0); MEAN CELL VOLUME 105.5 fl (81.0-99.0); MEAN CORPUSCULAR HGB 36.2 pg (27.0-31.0); MEAN CORPUSCULAR HGB CONC 34.3 g/dl (33.0-37.0); MEAN PLATELET VOLUME 10.3 fl (9.6-12.3); MONO # 0.9 10*3/uL (0.1-1.0); MONO % 13.4 % (3.0-9.0); NEUT # 3.4 10*3/uL (2.3-7.9); NEUT % 51.4 % (47.0-73.0); NUCLEATED RED BLOOD CELL 0.3 % (0.0-0.0); PLATELET COUNT AUTOMATED 211 10*3/uL (130-400); RED BLOOD COUNT 3.29 10*6/uL (4.10-5.10); RED CELL DISTRI WIDTH 20.7 % (0-14.5); WHITE BLOOD COUNT 6.7 10*3/uL (4.8-10.8)
[2016-11-11 17:43] LABS: ALBUMIN 2.6 gm/dl (3.1-4.5); BILIRUBIN, TOTAL 3.9 mg/dl (0.2-1.0); BUN 3 mg/dl (7-24); CARBON DIOXIDE 13 mmol/L (21-32); CHLORIDE 106 mmol/L (98-107); EST GLOM FILT AFRICAN AMERICAN > 60 ml/min; GLUCOSE 112 mg/dL (65-99); SGOT/AST 106 IU/L (3-35); SGPT/ALT 37 U/L (12-78); SODIUM 136 mmol/L (136-145); TOTAL PROTEIN 8.2 gm/dL (6.4-8.2)
[2016-11-11 17:46] LABS: ALKALINE PHOSPHATASE 172 U/L (45-117)
[2016-11-11 17:49] LABS: TROPONIN I < 0.015 ng/ml (<0.045)
[2016-11-11 17:50] LABS: POTASSIUM 2.2 mmol/L (3.5-5.1)
[2016-11-11 18:52] VITALS: BP 114/86
[2016-11-11 19:12] LABS: BILIRUBIN NEGATIVE (NEGATIVE); BLOOD TRACE-LYSED (NEGATIVE); CLARITY SL CLOUDY (CLEAR); COLOR YELLOW (YELLOW); GLUCOSE NEGATIVE (NEGATIVE); KETONE NEGATIVE (NEGATIVE); LEUKO ESTERASE 3+ (NEGATIVE); NITRITE NEGATIVE (NEGATIVE); PROTEIN TRACE (NEGATIVE); SPECIFIC GRAVITY <= 1.005 (1.005-1.030)
[2016-11-11 19:21] LABS: RBC 0-2 rbc/hpf (0-2); WBC 21-30 wbc/hpf (0-5)
[2016-11-11 19:22] LABS: BACTERIA 3+; URINE REFLEX COMMENT YES (NO)
[2016-11-11 19:22] LABS: LA>2 REFLEX 2 HR DRAW NOW
[2016-11-11 19:29] LABS: URINE AMPHETAMINES < 1000 (1000ng/ml); URINE BARBITURATES < 200 (200ng/ml); URINE COCAINE < 300 (300ng/ml)
[2016-11-11 19:43] LABS: LA>2 RFLX FOLLOW UP AT 2 HRS 2.1 mmol/L (0.4-2.0)
[2016-11-11 20:30] VITALS: BP 127/54
[2016-11-11 21:37] LABS: LA>2 REFLEX 4 HR DRAW NOW
[2016-11-11 23:37] LABS: BUN 3 mg/dl (7-24); CARBON DIOXIDE 13 mmol/L (21-32); CHLORIDE 114 mmol/L (98-107); EST GLOM FILT AFRICAN AMERICAN > 60 ml/min; GLUCOSE 91 mg/dL (65-99); SODIUM 142 mmol/L (136-145)
[2016-11-11 23:40] LABS: POTASSIUM 2.1 mmol/L (3.5-5.1); TROPONIN I < 0.015 ng/ml (<0.045)
[2016-11-12] VITALS: BP 103/58
[2016-11-12 02:58] LABS: BUN 3 mg/dl (7-24); CARBON DIOXIDE 15 mmol/L (21-32); CHLORIDE 117 mmol/L (98-107); EST GLOM FILT AFRICAN AMERICAN > 60 ml/min; GLUCOSE 101 mg/dL (65-99); POTASSIUM 2.9 mmol/L (3.5-5.1); SODIUM 146 mmol/L (136-145)
[2016-11-12 03:35] VITALS: BP 102/57
[2016-11-12 05:49] LABS: HEMATOCRIT 33.3 % (37.0-47.0); MEAN CORPUSCULAR HGB 36.1 pg (27.0-31.0); MEAN PLATELET VOLUME 10.6 fl (9.6-12.3); PLATELET COUNT AUTOMATED 183 10*3/uL (130-400); RED BLOOD COUNT 3.05 10*6/uL (4.10-5.10); RED CELL DISTRI WIDTH 20.9 % (0-14.5); WHITE BLOOD COUNT 5.3 10*3/uL (4.8-10.8)
[2016-11-12 05:56] LABS: HEMOGLOBIN A1c 4.4 % (4.8-5.6)
[2016-11-12 06:01] LABS: MEAN CELL VOLUME 109.2 fl (81.0-99.0)
[2016-11-12 06:13] LABS: ALBUMIN 2.2 gm/dl (3.1-4.5); ALKALINE PHOSPHATASE 137 U/L (45-117); BILIRUBIN, TOTAL 2.7 mg/dl (0.2-1.0); BUN 3 mg/dl (7-24); CARBON DIOXIDE 15 mmol/L (21-32); CHLORIDE 117 mmol/L (98-107); EST GLOM FILT AFRICAN AMERICAN > 60 ml/min; GLUCOSE 118 mg/dL (65-99); MAGNESIUM 2.7 mg/dL (1.5-2.1); PHOSPHOROUS 1.9 mg/dL (2.5-4.9); SGOT/AST 83 IU/L (3-35); SGPT/ALT 28 U/L (12-78); SODIUM 146 mmol/L (136-145); TOTAL PROTEIN 6.8 gm/dL (6.4-8.2)
[2016-11-12 06:17] LABS: POTASSIUM 2.3 mmol/L (3.5-5.1)
[2016-11-12 06:27] LABS: INTERNATIONAL NORM RATIO 1.2 (2.0-3.5); PROTHROMBIN TIME 12.5 SECONDS (9.0-12.4)
[2016-11-12 06:43] LABS: FOLIC ACID > 24.00 ng/mL (>5.38)
[2016-11-12 06:47] LABS: BASOPHIL # 0.1 10*3/uL (0-0.1); BASOPHILS 1 % (0-1); EOSINOPHIL # 0.1 10*3/uL (0-0.4); EOSINOPHILS 1 % (1-4); MONOCYTE # 0.4 10*3/uL (0.1-1.0); NEUTROPHIL # 2.8 10*3/uL (2.3-7.9); NEUTROPHILS 52 % (47-73); PLATELET SUFFICIENCY NORMAL (NORMAL); POLYCHROMASIA SLIGHT; TOTAL CELLS COUNTED 100 #CELLS
[2016-11-12 08:00] VITALS: BP 110/72
[2016-11-12 12:00] VITALS: BP 129/77
[2016-11-12 12:35] LABS: BUN 4 mg/dl (7-24); CARBON DIOXIDE 10 mmol/L (21-32); CHLORIDE 120 mmol/L (98-107); EST GLOM FILT AFRICAN AMERICAN > 60 ml/min; GLUCOSE 110 mg/dL (65-99); SODIUM 144 mmol/L (136-145)
[2016-11-12 16:00] VITALS: BP 130/88
[2016-11-12 20:00] VITALS: BP 90/69
[2016-11-13] VITALS (7 sets, daily range): BP systolic 100–150; BP diastolic 61–96
[2016-11-13 06:03] LABS: ALBUMIN 2.2 gm/dl (3.1-4.5); BUN 3 mg/dl (7-24); CARBON DIOXIDE 17 mmol/L (21-32); CHLORIDE 122 mmol/L (98-107); EST GLOM FILT AFRICAN AMERICAN > 60 ml/min; GLUCOSE 116 mg/dL (65-99); MAGNESIUM 2.1 mg/dL (1.5-2.1); POTASSIUM 2.8 mmol/L (3.5-5.1); SODIUM 150 mmol/L (136-145)
[2016-11-13 06:04] LABS: PHOSPHOROUS 3.1 mg/dL (2.5-4.9)
[2016-11-13 06:05] LABS: HEMOGLOBIN 10.4 g/dl (12.0-16.0); MEAN CELL VOLUME 108.8 fl (81.0-99.0); MEAN CORPUSCULAR HGB 35.4 pg (27.0-31.0); MEAN CORPUSCULAR HGB CONC 32.5 g/dl (33.0-37.0); MEAN PLATELET VOLUME 10.9 fl (9.6-12.3); PLATELET COUNT AUTOMATED 166 10*3/uL (130-400); RED BLOOD COUNT 2.94 10*6/uL (4.10-5.10); RED CELL DISTRI WIDTH 20.9 % (0-14.5); WHITE BLOOD COUNT 5.6 10*3/uL (4.8-10.8)
[2016-11-13 06:40] LABS: BASOPHIL # 0.1 10*3/uL (0-0.1); BASOPHILS 1 % (0-1); EOSINOPHIL # 0.1 10*3/uL (0-0.4); EOSINOPHILS 1 % (1-4); LYMPHOCYTE # 1.2 10*3/uL (1.3-4.4); MONOCYTE # 0.5 10*3/uL (0.1-1.0); NEUTROPHIL # 3.8 10*3/uL (2.3-7.9); NEUTROPHILS 68 % (47-73); PLATELET SUFFICIENCY NORMAL (NORMAL); POLYCHROMASIA SLIGHT; TOTAL CELLS COUNTED 100 #CELLS
[2016-11-14 03:49] VITALS: BP 138/80
[2016-11-14 05:59] LABS: HEMATOCRIT 36.2 % (37.0-47.0); HEMOGLOBIN 11.9 g/dl (12.0-16.0); MEAN CELL VOLUME 110.4 fl (81.0-99.0); MEAN CORPUSCULAR HGB 36.3 pg (27.0-31.0); MEAN CORPUSCULAR HGB CONC 32.9 g/dl (33.0-37.0); PLATELET COUNT AUTOMATED 165 10*3/uL (130-400); RED BLOOD COUNT 3.28 10*6/uL (4.10-5.10); WHITE BLOOD COUNT 4.7 10*3/uL (4.8-10.8)
[2016-11-14 06:06] LABS: ALBUMIN 2.3 gm/dl (3.1-4.5); ALKALINE PHOSPHATASE 144 U/L (45-117); BILIRUBIN, TOTAL 2.2 mg/dl (0.2-1.0); BUN 1 mg/dl (7-24); CARBON DIOXIDE 17 mmol/L (21-32); CHLORIDE 117 mmol/L (98-107); EST GLOM FILT AFRICAN AMERICAN > 60 ml/min; GLUCOSE 92 mg/dL (65-99); MAGNESIUM 2.1 mg/dL (1.5-2.1); POTASSIUM 3.4 mmol/L (3.5-5.1); SGOT/AST 78 IU/L (3-35); SGPT/ALT 30 U/L (12-78); SODIUM 146 mmol/L (136-145); TOTAL PROTEIN 7.5 gm/dL (6.4-8.2)
[2016-11-14 06:39] LABS: BASOPHIL # 0.1 10*3/uL (0-0.1); BASOPHILS 3 % (0-1); EOSINOPHIL # 0.1 10*3/uL (0-0.4); EOSINOPHILS 3 % (1-4); LYMPHOCYTE # 1.6 10*3/uL (1.3-4.4); MONOCYTE # 0.5 10*3/uL (0.1-1.0); NEUTROPHIL # 2.4 10*3/uL (2.3-7.9); NEUTROPHILS 51 % (47-73); PLATELET SUFFICIENCY NORMAL (NORMAL); TOTAL CELLS COUNTED 100 #CELLS
[2016-11-14 08:00] VITALS: BP 105/75
[2016-11-14 12:00] VITALS: BP 118/88
[2016-11-14 16:00] VITALS: BP 129/87
[2016-11-14 20:00] VITALS: BP 150/91
[2016-11-15] VITALS: BP 135/89
[2016-11-15 06:12] LABS: HEMATOCRIT 36.6 % (37.0-47.0); MEAN CELL VOLUME 110.2 fl (81.0-99.0); MEAN CORPUSCULAR HGB 36.1 pg (27.0-31.0); MEAN CORPUSCULAR HGB CONC 32.8 g/dl (33.0-37.0); MEAN PLATELET VOLUME 10.9 fl (9.6-12.3); PLATELET COUNT AUTOMATED 130 10*3/uL (130-400); RED BLOOD COUNT 3.32 10*6/uL (4.10-5.10); RED CELL DISTRI WIDTH 19.1 % (0-14.5); WHITE BLOOD COUNT 5.9 10*3/uL (4.8-10.8)
[2016-11-15 06:46] LABS: ALBUMIN 2.2 gm/dl (3.1-4.5); BUN 2 mg/dl (7-24); CARBON DIOXIDE 15 mmol/L (21-32); CHLORIDE 114 mmol/L (98-107); GLUCOSE 104 mg/dL (65-99); MAGNESIUM 1.9 mg/dL (1.5-2.1); POTASSIUM 3.5 mmol/L (3.5-5.1); SODIUM 142 mmol/L (136-145)
[2016-11-15 06:50] LABS: ALKALINE PHOSPHATASE 141 U/L (45-117); BILIRUBIN, TOTAL 2.3 mg/dl (0.2-1.0); EST GLOM FILT AFRICAN AMERICAN > 60 ml/min; PHOSPHOROUS 4.3 mg/dL (2.5-4.9); SGOT/AST 67 IU/L (3-35); SGPT/ALT 26 U/L (12-78); TOTAL PROTEIN 7.1 gm/dL (6.4-8.2)
[2016-11-15 07:34] LABS: BASOPHIL # 0.2 10*3/uL (0-0.1); BASOPHILS 3 % (0-1); EOSINOPHIL # 0.1 10*3/uL (0-0.4); EOSINOPHILS 1 % (1-4); LYMPHOCYTE # 1.2 10*3/uL (1.3-4.4); MONOCYTE # 0.5 10*3/uL (0.1-1.0); NEUTROPHILS 67 % (47-73); PLATELET SUFFICIENCY NORMAL (NORMAL); POLYCHROMASIA SLIGHT; TOTAL CELLS COUNTED 100 #CELLS
[2016-11-15 08:00] VITALS: BP 142/56
[2016-11-15 12:00] VITALS: BP 118/85
[2016-11-15 16:00] VITALS: BP 98/67
[2016-11-15 20:00] VITALS: BP 127/92
[2016-11-16] VITALS: BP 117/90
[2016-11-16 06:37] LABS: HEMATOCRIT 33.4 % (37.0-47.0); HEMOGLOBIN 10.9 g/dl (12.0-16.0); MEAN CELL VOLUME 109.5 fl (81.0-99.0); MEAN CORPUSCULAR HGB 35.7 pg (27.0-31.0); MEAN CORPUSCULAR HGB CONC 32.6 g/dl (33.0-37.0); MEAN PLATELET VOLUME 11.2 fl (9.6-12.3); NUCLEATED RED BLOOD CELL 0.3 % (0.0-0.0); PLATELET COUNT AUTOMATED 125 10*3/uL (130-400); RED BLOOD COUNT 3.05 10*6/uL (4.10-5.10); RED CELL DISTRI WIDTH 18.2 % (0-14.5); WHITE BLOOD COUNT 6.1 10*3/uL (4.8-10.8)
[2016-11-16 06:48] LABS: ALKALINE PHOSPHATASE 134 U/L (45-117); BILIRUBIN, TOTAL 2.2 mg/dl (0.2-1.0); BUN 2 mg/dl (7-24); CARBON DIOXIDE 15 mmol/L (21-32); CHLORIDE 114 mmol/L (98-107); EST GLOM FILT AFRICAN AMERICAN > 60 ml/min; GLUCOSE 99 mg/dL (65-99); POTASSIUM 3.6 mmol/L (3.5-5.1); SGOT/AST 57 IU/L (3-35); SGPT/ALT 24 U/L (12-78); SODIUM 140 mmol/L (136-145); TOTAL PROTEIN 6.5 gm/dL (6.4-8.2)
[2016-11-16 07:20] LABS: BASOPHIL # 0.1 10*3/uL (0-0.1); BASOPHILS 1 % (0-1); EOSINOPHIL # 0.1 10*3/uL (0-0.4); EOSINOPHILS 1 % (1-4); MONOCYTE # 0.5 10*3/uL (0.1-1.0); NEUTROPHIL # 4.5 10*3/uL (2.3-7.9); NEUTROPHILS 74 % (47-73); PLATELET SUFFICIENCY LOW (NORMAL); TOTAL CELLS COUNTED 100 #CELLS
[2016-11-16 08:00] VITALS: BP 106/76
[2016-11-16] MEDS ORDERED: DOXEPIN25 MG PO (10:01)
[2016-11-16] MEDS ORDERED: DIAZEPAM5 MG PO (10:02)
[2016-11-16] MEDS ORDERED: BUPROPION HYDR150 M1 PO ×2 (10:04)
[2016-11-16 12:00] VITALS: BP 106/61
[2016-11-16 16:00] VITALS: BP 125/75
[2016-11-16 20:00] VITALS: BP 132/72
[2016-11-17] VITALS: BP 117/102
[2016-11-17 06:40] LABS: HEMATOCRIT 30.8 % (37.0-47.0); HEMOGLOBIN 10.2 g/dl (12.0-16.0); MEAN CELL VOLUME 109.2 fl (81.0-99.0); MEAN CORPUSCULAR HGB 36.2 pg (27.0-31.0); MEAN CORPUSCULAR HGB CONC 33.1 g/dl (33.0-37.0); MEAN PLATELET VOLUME 11.1 fl (9.6-12.3); PLATELET COUNT AUTOMATED 123 10*3/uL (130-400); RED BLOOD COUNT 2.82 10*6/uL (4.10-5.10); RED CELL DISTRI WIDTH 17.3 % (0-14.5); WHITE BLOOD COUNT 6.3 10*3/uL (4.8-10.8)
[2016-11-17 06:52] LABS: BUN 2 mg/dl (7-24); CARBON DIOXIDE 16 mmol/L (21-32); CHLORIDE 113 mmol/L (98-107); EST GLOM FILT AFRICAN AMERICAN > 60 ml/min; GLUCOSE 96 mg/dL (65-99); POTASSIUM 3.5 mmol/L (3.5-5.1); SODIUM 139 mmol/L (136-145)
[2016-11-17 07:20] LABS: EOSINOPHIL # 0.1 10*3/uL (0-0.4); EOSINOPHILS 1 % (1-4); LYMPHOCYTE # 1.3 10*3/uL (1.3-4.4); MONOCYTE # 0.4 10*3/uL (0.1-1.0); NEUTROPHIL # 4.5 10*3/uL (2.3-7.9); NEUTROPHILS 71 % (47-73); PLATELET SUFFICIENCY LOW (NORMAL); ROULEAUX SLIGHT; TOTAL CELLS COUNTED 100 #CELLS
[2016-11-17 08:00] VITALS: BP 94/55
[2016-11-17 12:00] VITALS: BP 104/73
[2016-11-17 16:00] VITALS: BP 109/73
[2016-11-17 20:00] VITALS: BP 96/64
[2016-11-18] VITALS: BP 79/50
[2016-11-18 06:25] LABS: HEMATOCRIT 29.7 % (37.0-47.0); HEMOGLOBIN 9.8 g/dl (12.0-16.0); MEAN CELL VOLUME 108.4 fl (81.0-99.0); MEAN CORPUSCULAR HGB 35.8 pg (27.0-31.0); MEAN PLATELET VOLUME 10.9 fl (9.6-12.3); PLATELET COUNT AUTOMATED 115 10*3/uL (130-400); RED BLOOD COUNT 2.74 10*6/uL (4.10-5.10); RED CELL DISTRI WIDTH 16.9 % (0-14.5); WHITE BLOOD COUNT 6.5 10*3/uL (4.8-10.8)
[2016-11-18 06:51] LABS: ALBUMIN 1.9 gm/dl (3.1-4.5); BUN 4 mg/dl (7-24); CARBON DIOXIDE 19 mmol/L (21-32); CHLORIDE 110 mmol/L (98-107); EST GLOM FILT AFRICAN AMERICAN > 60 ml/min; GLUCOSE 95 mg/dL (65-99); MAGNESIUM 1.8 mg/dL (1.5-2.1); PHOSPHOROUS 3.5 mg/dL (2.5-4.9); POTASSIUM 3.4 mmol/L (3.5-5.1); SODIUM 139 mmol/L (136-145)
[2016-11-18 06:59] LABS: EOSINOPHIL # 0.1 10*3/uL (0-0.4); EOSINOPHILS 1 % (1-4); LYMPHOCYTE # 1.2 10*3/uL (1.3-4.4); MONOCYTE # 0.3 10*3/uL (0.1-1.0); NEUTROPHIL # 4.9 10*3/uL (2.3-7.9); NEUTROPHILS 76 % (47-73); PLATELET SUFFICIENCY LOW (NORMAL); POLYCHROMASIA SLIGHT; TOTAL CELLS COUNTED 100 #CELLS
[2016-11-18 08:00] VITALS: BP 104/66
[2016-11-18 12:00] VITALS: BP 110/76
[2016-11-18] MEDS ORDERED: XIFAXAN550 MG PO (13:35)
[2016-11-18] MEDS ORDERED: NYSTOP100000 U/G T (13:35)
[2016-11-18] MEDS ORDERED: PREPARATION H CR1 OZ R (13:35)
[2016-11-18] MEDS ORDERED: [UNRECOGNIZED DRUG - CODE] T (13:35)
[2016-11-18] MEDS ORDERED: LACTULOSE20 GM/30 M PO (13:35)
[2016-11-18] MEDS ORDERED: K-PHOS500 MG PO (13:35)
== END 2016-11-18 16:25 | disposition other institution (70) | DRG 871 ==
LOC: ED 16:54 → ICCU 19:24 → EDHOLD 19:24 → ICCU 19:49 → 4E 11-14 14:28
PROVIDERS: Family Medicine; Hospitalist; Internal Medicine; Internal Medicine Hospice and Palliative Medicine; Internal Medicine Nephrology; Physician Assistant
DX: A41.9 Sepsis, unspecified organism (principal); E43 Unspecified severe protein-calorie malnutrition; N17.0 Acute kidney failure with tubular necrosis; E87.2 Acidosis; K72.90 Hepatic failure, unspecified without coma; E87.0 Hyperosmolality and hypernatremia; I11.0 Hypertensive heart disease with heart failure; I50.32 Chronic diastolic (congestive) heart failure; N30.01 Acute cystitis with hematuria; F10.232 Alcohol dependence with withdrawal with perceptual disturbance; E87.6 Hypokalemia; M19.90 Unspecified osteoarthritis, unspecified site; R65.20 Severe sepsis without septic shock; D53.9 Nutritional anemia, unspecified; R73.9 Hyperglycemia, unspecified; K62.3 Rectal prolapse; K76.0 Fatty (change of) liver, not elsewhere classified; L24.9 Irritant contact dermatitis, unspecified cause; E55.9 Vitamin D deficiency, unspecified; F31.9 Bipolar disorder, unspecified; F12.90 Cannabis use, unspecified, uncomplicated; F41.9 Anxiety disorder, unspecified; B18.2 Chronic viral hepatitis C; Z88.8 Allergy status to other drugs, medicaments and biological substances; Z87.891 Personal history of nicotine dependence; Z82.49 Family history of ischemic heart disease and other diseases of the circulatory system; Z68.25 Body mass index [BMI] 25.0-25.9, adult

== ENCOUNTER 2016-12-05 16:41 | Inpatient (IN) | payer OTHER ==
[~2016-12-05] VITALS: Ht 165.1 cm; Wt 66.5 kg
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
--- NOTE | ~2016-12-05 | PR ---
[place], [place] PROGRESS NOTE NAME: [id number] UNIT #: [id number] ROOM: 523 DOCTOR: MARQUES EDAshantiD,MARIA DE JESUS WALTER) BIRTHDATE: [birth year] DOS: 12/11/2016 At the present time, this patient is quite confused and delirious. She does not know the year or the month of the year, stating that it is 2001 or 2004. She is clearly much more confused than she had been several days ago. She had some medical complications and once she stabilized, I will reevaluate her on Wednesday for possible emergency guardianship. DIAGNOSIS: Delirium, not otherwise specified. MARIA DE JESUS MOHAN ED.D CM:LYSSA [id number] MARIA DE JESUS MOHAN (BOB) ED.D 12/13/16 0206 interface
[~2016-12-05 16:41] MED LIST changes: +BUPROPION HYDR150 M1 PO; +DIAZEPAM5 MG PO; +DOXEPIN25 MG PO; +K-PHOS500 MG PO; +LACTULOSE20 GM/30 M PO; +NYSTOP100000 U/G T; +PREPARATION H CR1 OZ R; +XIFAXAN550 MG PO; +[UNRECOGNIZED DRUG - CODE] T
[2016-12-05 16:42] VITALS: BP 124/88
[2016-12-05 17:22] LABS: BASO % 0.6 % (0.0-1.0); EOS % 0.6 % (1.0-4.0); HEMATOCRIT 33.5 % (37.0-47.0); HEMOGLOBIN 10.9 g/dl (12.0-16.0); LYMPH % 19.9 % (27.0-41.0); MEAN CELL VOLUME 106.3 fl (81.0-99.0); MEAN CORPUSCULAR HGB 34.6 pg (27.0-31.0); MEAN CORPUSCULAR HGB CONC 32.5 g/dl (33.0-37.0); MEAN PLATELET VOLUME 10.3 fl (9.6-12.3); MONO # 0.5 10*3/uL (0.1-1.0); MONO % 11.1 % (3.0-9.0); NEUT # 3.3 10*3/uL (2.3-7.9); NEUT % 67.6 % (47.0-73.0); PLATELET COUNT AUTOMATED 167 10*3/uL (130-400); RED BLOOD COUNT 3.15 10*6/uL (4.10-5.10); WHITE BLOOD COUNT 4.9 10*3/uL (4.8-10.8)
[2016-12-05 17:37] LABS: ALBUMIN 2.6 gm/dl (3.1-4.5); BILIRUBIN, TOTAL 2.1 mg/dl (0.2-1.0); BUN 7 mg/dl (7-24); CARBON DIOXIDE 15 mmol/L (21-32); CHLORIDE 111 mmol/L (98-107); EST GLOM FILT AFRICAN AMERICAN > 60 ml/min; GLUCOSE 84 mg/dL (65-99); POTASSIUM 2.7 mmol/L (3.5-5.1); SGOT/AST 91 IU/L (3-35); SGPT/ALT 36 U/L (12-78); SODIUM 141 mmol/L (136-145); TOTAL PROTEIN 7.3 gm/dL (6.4-8.2)
[2016-12-05 17:38] LABS: ALKALINE PHOSPHATASE 184 U/L (45-117)
[2016-12-05 18:14] LABS: INTERNATIONAL NORM RATIO 1.2 (2.0-3.5); PROTHROMBIN TIME 12.6 SECONDS (9.0-12.4)
[2016-12-05 18:50] VITALS: BP 116/74
[2016-12-05 20:00] VITALS: BP 129/93
[2016-12-05 21:00] VITALS: BP 129/93
[2016-12-06] VITALS: BP 97/56
[2016-12-06 04:00] VITALS: BP 97/65
[2016-12-06 05:13] LABS: BILIRUBIN 1+ (NEGATIVE); BLOOD 1+ (NEGATIVE); CLARITY SL CLOUDY (CLEAR); COLOR YELLOW (YELLOW); GLUCOSE NEGATIVE (NEGATIVE); KETONE TRACE (NEGATIVE); LEUKO ESTERASE 3+ (NEGATIVE); NITRITE NEGATIVE (NEGATIVE); PROTEIN TRACE (NEGATIVE); UROBILINOGEN 0.2 E.U./dl (0.2-1.0)
[2016-12-06 05:29] LABS: BACTERIA 1+; WBC TNTC wbc/hpf (0-5)
[2016-12-06 05:30] LABS: URINE REFLEX COMMENT YES (NO)
[2016-12-06 06:37] LABS: BASO % 0.6 % (0.0-1.0); EOS # 0.1 10*3/uL (0.0-0.4); EOS % 2.2 % (1.0-4.0); HEMATOCRIT 31.4 % (37.0-47.0); HEMOGLOBIN 10.2 g/dl (12.0-16.0); LYMPH # 1.1 10*3/uL (1.3-4.4); LYMPH % 35.2 % (27.0-41.0); MEAN CELL VOLUME 107.9 fl (81.0-99.0); MEAN CORPUSCULAR HGB 35.1 pg (27.0-31.0); MEAN CORPUSCULAR HGB CONC 32.5 g/dl (33.0-37.0); MEAN PLATELET VOLUME 10.4 fl (9.6-12.3); MONO # 0.4 10*3/uL (0.1-1.0); MONO % 12.3 % (3.0-9.0); NEUT # 1.6 10*3/uL (2.3-7.9); NEUT % 49.4 % (47.0-73.0); PLATELET COUNT AUTOMATED 137 10*3/uL (130-400); RED BLOOD COUNT 2.91 10*6/uL (4.10-5.10); RED CELL DISTRI WIDTH 16.4 % (0-14.5); WHITE BLOOD COUNT 3.2 10*3/uL (4.8-10.8)
[2016-12-06 07:02] LABS: ALBUMIN 2.2 gm/dl (3.1-4.5); ALKALINE PHOSPHATASE 168 U/L (45-117); BILIRUBIN, TOTAL 1.5 mg/dl (0.2-1.0); BUN 5 mg/dl (7-24); CARBON DIOXIDE 17 mmol/L (21-32); CHLORIDE 116 mmol/L (98-107); CHOLESTEROL 143 mg/dL (<200); EST GLOM FILT AFRICAN AMERICAN > 60 ml/min; GLUCOSE 71 mg/dL (65-99); HDL CHOLESTEROL 20 mg/dl (40-60); LDL CHOLESTEROL 105 mg/dL (9-159); MAGNESIUM 1.9 mg/dL (1.5-2.1); PHOSPHOROUS 3.2 mg/dL (2.5-4.9); POTASSIUM 2.9 mmol/L (3.5-5.1); SGOT/AST 82 IU/L (3-35); SGPT/ALT 29 U/L (12-78); SODIUM 143 mmol/L (136-145); TOTAL PROTEIN 6.5 gm/dL (6.4-8.2); TRIGLYCERIDES 89 mg/dl (<150); VLDL CHOLESTEROL 18 mg/dL (6-40)
[2016-12-06 07:04] LABS: FREE T4 0.97 ng/dl (0.76-1.46)
[2016-12-06 07:06] LABS: INTERNATIONAL NORM RATIO 1.2 (2.0-3.5); PROTHROMBIN TIME 12.4 SECONDS (9.0-12.4)
[2016-12-06 08:00] VITALS: BP 118/72
[2016-12-06 08:09] LABS: FOLIC ACID > 24.00 ng/mL (>5.38)
[2016-12-06 12:00] VITALS: BP 146/78
[2016-12-06 16:00] VITALS: BP 109/81
[2016-12-06 20:00] VITALS: BP 116/71
[2016-12-07] VITALS: BP 124/78
[2016-12-07 01:30] VITALS: BP 116/71
[2016-12-07 05:13] LABS: BUN 4 mg/dl (7-24); CARBON DIOXIDE 16 mmol/L (21-32); CHLORIDE 117 mmol/L (98-107); EST GLOM FILT AFRICAN AMERICAN > 60 ml/min; GLUCOSE 94 mg/dL (65-99); POTASSIUM 2.9 mmol/L (3.5-5.1); SODIUM 142 mmol/L (136-145)
[2016-12-07 06:05] LABS: HEMATOCRIT 31.2 % (37.0-47.0); HEMOGLOBIN 9.8 g/dl (12.0-16.0); MEAN CELL VOLUME 109.9 fl (81.0-99.0); MEAN CORPUSCULAR HGB 34.5 pg (27.0-31.0); MEAN CORPUSCULAR HGB CONC 31.4 g/dl (33.0-37.0); MEAN PLATELET VOLUME 10.8 fl (9.6-12.3); PLATELET COUNT AUTOMATED 132 10*3/uL (130-400); RED BLOOD COUNT 2.84 10*6/uL (4.10-5.10); RED CELL DISTRI WIDTH 16.1 % (0-14.5); WHITE BLOOD COUNT 2.8 10*3/uL (4.8-10.8)
[2016-12-07 06:59] LABS: EOSINOPHIL # 0.1 10*3/uL (0-0.4); EOSINOPHILS 2 % (1-4); LYMPHOCYTE # 0.6 10*3/uL (1.3-4.4); MONOCYTE # 0.1 10*3/uL (0.1-1.0); NEUTROPHILS 70 % (47-73); PLATELET SUFFICIENCY NORMAL (NORMAL); POLYCHROMASIA SLIGHT; TOTAL CELLS COUNTED 100 #CELLS
[2016-12-07 08:00] VITALS: BP 135/82
[2016-12-07 12:00] VITALS: BP 138/86
[2016-12-07 16:00] VITALS: BP 150/88
[2016-12-07 20:00] VITALS: BP 120/90
[2016-12-08] VITALS: BP 132/97
[2016-12-08 07:21] LABS: HEMATOCRIT 36.9 % (37.0-47.0); HEMOGLOBIN 11.5 g/dl (12.0-16.0); MEAN CELL VOLUME 111.8 fl (81.0-99.0); MEAN CORPUSCULAR HGB 34.8 pg (27.0-31.0); MEAN CORPUSCULAR HGB CONC 31.2 g/dl (33.0-37.0); MEAN PLATELET VOLUME 10.1 fl (9.6-12.3); PLATELET COUNT AUTOMATED 154 10*3/uL (130-400); RED CELL DISTRI WIDTH 16.2 % (0-14.5); WHITE BLOOD COUNT 3.6 10*3/uL (4.8-10.8)
[2016-12-08 07:44] LABS: BASOPHILS 1 % (0-1); EOSINOPHIL # 0.1 10*3/uL (0-0.4); EOSINOPHILS 2 % (1-4); LYMPHOCYTE # 1.2 10*3/uL (1.3-4.4); MONOCYTE # 0.4 10*3/uL (0.1-1.0); NEUTROPHIL # 1.9 10*3/uL (2.3-7.9); NEUTROPHILS 52 % (47-73); PLATELET SUFFICIENCY NORMAL (NORMAL); TOTAL CELLS COUNTED 100 #CELLS
[2016-12-08 07:52] LABS: ALBUMIN 2.7 gm/dl (3.1-4.5); ALKALINE PHOSPHATASE 179 U/L (45-117); BILIRUBIN, TOTAL 1.3 mg/dl (0.2-1.0); BUN 2 mg/dl (7-24); CARBON DIOXIDE 16 mmol/L (21-32); CHLORIDE 116 mmol/L (98-107); EST GLOM FILT AFRICAN AMERICAN > 60 ml/min; GLUCOSE 80 mg/dL (65-99); POTASSIUM 3.6 mmol/L (3.5-5.1); SGPT/ALT 33 U/L (12-78); SODIUM 141 mmol/L (136-145)
[2016-12-08 07:53] LABS: SGOT/AST 72 IU/L (3-35); TOTAL PROTEIN 7.5 gm/dL (6.4-8.2)
[2016-12-08 08:00] VITALS: BP 112/66
[2016-12-08 12:00] VITALS: BP 112/78
[2016-12-08 16:00] VITALS: BP 123/80
[2016-12-08 18:11] VITALS: BP 121/85
[2016-12-08 20:00] VITALS: BP 126/84
[2016-12-09] VITALS: BP 103/53
[2016-12-09 06:08] LABS: HEMATOCRIT 32.8 % (37.0-47.0); HEMOGLOBIN 10.1 g/dl (12.0-16.0); MEAN CELL VOLUME 109.7 fl (81.0-99.0); MEAN CORPUSCULAR HGB 33.8 pg (27.0-31.0); MEAN CORPUSCULAR HGB CONC 30.8 g/dl (33.0-37.0); PLATELET COUNT AUTOMATED 133 10*3/uL (130-400); RED BLOOD COUNT 2.99 10*6/uL (4.10-5.10); RED CELL DISTRI WIDTH 16.4 % (0-14.5); WHITE BLOOD COUNT 2.5 10*3/uL (4.8-10.8)
[2016-12-09 06:20] LABS: CHLORIDE 119 mmol/L (98-107); POTASSIUM 3.4 mmol/L (3.5-5.1); SODIUM 143 mmol/L (136-145)
[2016-12-09 06:25] LABS: ALBUMIN 2.3 gm/dl (3.1-4.5); BUN 1 mg/dl (7-24); CARBON DIOXIDE 16 mmol/L (21-32); EST GLOM FILT AFRICAN AMERICAN > 60 ml/min; GLUCOSE 90 mg/dL (65-99); SGOT/AST 53 IU/L (3-35); SGPT/ALT 25 U/L (12-78); TOTAL PROTEIN 6.4 gm/dL (6.4-8.2)
[2016-12-09 07:03] LABS: ALKALINE PHOSPHATASE 145 U/L (45-117)
[2016-12-09 07:12] LABS: BASOPHILS 1 % (0-1); HYPOCHROMIA SLIGHT; LYMPHOCYTE # 1.2 10*3/uL (1.3-4.4); METAMYELOCYTES 1 % (0-0); MONOCYTE # 0.2 10*3/uL (0.1-1.0); NEUTROPHIL # 1.1 10*3/uL (2.3-7.9); NEUTROPHILS 44 % (47-73); PLATELET SUFFICIENCY NORMAL (NORMAL); TOTAL CELLS COUNTED 100 #CELLS
[2016-12-09 08:00] VITALS: BP 122/78
[2016-12-09 12:00] VITALS: BP 140/76
[2016-12-09 16:00] VITALS: BP 130/88
[2016-12-09 20:00] VITALS: BP 120/75; BP 121/65
[2016-12-10] VITALS: BP 102/64
[2016-12-10 05:49] LABS: ALBUMIN 2.1 gm/dl (3.1-4.5); ALKALINE PHOSPHATASE 131 U/L (45-117); BILIRUBIN, TOTAL 0.9 mg/dl (0.2-1.0); BUN 1 mg/dl (7-24); CARBON DIOXIDE 16 mmol/L (21-32); CHLORIDE 118 mmol/L (98-107); EST GLOM FILT AFRICAN AMERICAN > 60 ml/min; GLUCOSE 86 mg/dL (65-99); POTASSIUM 3.1 mmol/L (3.5-5.1); SGOT/AST 44 IU/L (3-35); SGPT/ALT 23 U/L (12-78); SODIUM 143 mmol/L (136-145)
[2016-12-10 06:03] LABS: HEMOGLOBIN 9.8 g/dl (12.0-16.0); MEAN CELL VOLUME 109.5 fl (81.0-99.0); MEAN CORPUSCULAR HGB 34.6 pg (27.0-31.0); MEAN CORPUSCULAR HGB CONC 31.6 g/dl (33.0-37.0); MEAN PLATELET VOLUME 10.5 fl (9.6-12.3); PLATELET COUNT AUTOMATED 129 10*3/uL (130-400); RED BLOOD COUNT 2.83 10*6/uL (4.10-5.10); RED CELL DISTRI WIDTH 16.1 % (0-14.5); WHITE BLOOD COUNT 2.3 10*3/uL (4.8-10.8)
[2016-12-10 06:18] LABS: INTERNATIONAL NORM RATIO 1.1 (2.0-3.5); PROTHROMBIN TIME 11.3 SECONDS (9.0-12.4)
[2016-12-10 06:38] LABS: BASOPHILS 1 % (0-1); EOSINOPHILS 2 % (1-4); LYMPHOCYTE # 0.6 10*3/uL (1.3-4.4); MONOCYTE # 0.3 10*3/uL (0.1-1.0); NEUTROPHIL # 1.3 10*3/uL (2.3-7.9); NEUTROPHILS 56 % (47-73); PLATELET SUFFICIENCY LOW (NORMAL); TOTAL CELLS COUNTED 100 #CELLS
[2016-12-10 08:00] VITALS: BP 127/85
[2016-12-10 11:36] VITALS: BP 139/93
[2016-12-10 16:00] VITALS: BP 94/64
[2016-12-10 20:00] VITALS: BP 102/53
[2016-12-11] VITALS: BP 108/58
[2016-12-11 06:45] LABS: HEMATOCRIT 32.5 % (37.0-47.0); HEMOGLOBIN 10.2 g/dl (12.0-16.0); MEAN CELL VOLUME 109.4 fl (81.0-99.0); MEAN CORPUSCULAR HGB 34.3 pg (27.0-31.0); MEAN CORPUSCULAR HGB CONC 31.4 g/dl (33.0-37.0); MEAN PLATELET VOLUME 10.2 fl (9.6-12.3); PLATELET COUNT AUTOMATED 137 10*3/uL (130-400); RED BLOOD COUNT 2.97 10*6/uL (4.10-5.10); RED CELL DISTRI WIDTH 16.4 % (0-14.5); WHITE BLOOD COUNT 3.9 10*3/uL (4.8-10.8)
[2016-12-11 07:12] LABS: ALBUMIN 2.1 gm/dl (3.1-4.5); ALKALINE PHOSPHATASE 133 U/L (45-117); BILIRUBIN, TOTAL 0.9 mg/dl (0.2-1.0); BUN 2 mg/dl (7-24); CARBON DIOXIDE 17 mmol/L (21-32); CHLORIDE 114 mmol/L (98-107); EST GLOM FILT AFRICAN AMERICAN > 60 ml/min; GLUCOSE 85 mg/dL (65-99); POTASSIUM 3.3 mmol/L (3.5-5.1); SGOT/AST 45 IU/L (3-35); SGPT/ALT 23 U/L (12-78); SODIUM 142 mmol/L (136-145); TOTAL PROTEIN 6.4 gm/dL (6.4-8.2)
[2016-12-11 07:31] LABS: BASOPHILS 1 % (0-1); EOSINOPHIL # 0.1 10*3/uL (0-0.4); EOSINOPHILS 3 % (1-4); HYPOCHROMIA SLIGHT; LYMPHOCYTE # 0.7 10*3/uL (1.3-4.4); MONOCYTE # 0.1 10*3/uL (0.1-1.0); NEUTROPHIL # 2.9 10*3/uL (2.3-7.9); NEUTROPHILS 75 % (47-73); PLATELET SUFFICIENCY NORMAL (NORMAL); TOTAL CELLS COUNTED 100 #CELLS
[2016-12-11 08:00] VITALS: BP 72/48
[2016-12-11 10:00] VITALS: BP 80/54
[2016-12-11 12:00] VITALS: BP 124/88
[2016-12-11 16:00] VITALS: BP 124/74
[2016-12-11 20:00] VITALS: BP 98/61
[2016-12-12] VITALS: BP 108/95
[2016-12-12 06:54] LABS: MEAN CELL VOLUME 108.4 fl (81.0-99.0); MEAN CORPUSCULAR HGB 34.1 pg (27.0-31.0); MEAN CORPUSCULAR HGB CONC 31.4 g/dl (33.0-37.0); MEAN PLATELET VOLUME 10.5 fl (9.6-12.3); PLATELET COUNT AUTOMATED 159 10*3/uL (130-400); RED BLOOD COUNT 3.23 10*6/uL (4.10-5.10); RED CELL DISTRI WIDTH 15.9 % (0-14.5)
[2016-12-12 07:23] LABS: ALBUMIN 2.4 gm/dl (3.1-4.5); ALKALINE PHOSPHATASE 143 U/L (45-117); BILIRUBIN, TOTAL 1.1 mg/dl (0.2-1.0); BUN 2 mg/dl (7-24); CARBON DIOXIDE 19 mmol/L (21-32); CHLORIDE 113 mmol/L (98-107); EST GLOM FILT AFRICAN AMERICAN > 60 ml/min; GLUCOSE 99 mg/dL (65-99); POTASSIUM 3.2 mmol/L (3.5-5.1); SGOT/AST 47 IU/L (3-35); SGPT/ALT 23 U/L (12-78); SODIUM 143 mmol/L (136-145); TOTAL PROTEIN 6.9 gm/dL (6.4-8.2)
[2016-12-12 07:24] LABS: BASOPHIL # 0.1 10*3/uL (0-0.1); BASOPHILS 1 % (0-1); EOSINOPHIL # 0.2 10*3/uL (0-0.4); EOSINOPHILS 3 % (1-4); LYMPHOCYTE # 1.1 10*3/uL (1.3-4.4); MONOCYTE # 0.2 10*3/uL (0.1-1.0); NEUTROPHIL # 3.6 10*3/uL (2.3-7.9); NEUTROPHILS 71 % (47-73); PLATELET SUFFICIENCY NORMAL (NORMAL); TOTAL CELLS COUNTED 100 #CELLS
[2016-12-12 08:00] VITALS: BP 129/94
[2016-12-12 12:00] VITALS: BP 120/83
[2016-12-12 16:00] VITALS: BP 113/63
[2016-12-13] VITALS: BP 116/77
[2016-12-13 08:00] VITALS: BP 133/89
[2016-12-13 10:26] LABS: BASO % 0.5 % (0.0-1.0); EOS # 0.1 10*3/uL (0.0-0.4); EOS % 2.1 % (1.0-4.0); HEMATOCRIT 31.7 % (37.0-47.0); HEMOGLOBIN 10.2 g/dl (12.0-16.0); LYMPH % 25.4 % (27.0-41.0); MEAN CELL VOLUME 107.8 fl (81.0-99.0); MEAN CORPUSCULAR HGB 34.7 pg (27.0-31.0); MEAN CORPUSCULAR HGB CONC 32.2 g/dl (33.0-37.0); MEAN PLATELET VOLUME 10.2 fl (9.6-12.3); MONO # 0.4 10*3/uL (0.1-1.0); MONO % 10.3 % (3.0-9.0); NEUT # 2.4 10*3/uL (2.3-7.9); NEUT % 61.2 % (47.0-73.0); PLATELET COUNT AUTOMATED 137 10*3/uL (130-400); RED BLOOD COUNT 2.94 10*6/uL (4.10-5.10); RED CELL DISTRI WIDTH 16.1 % (0-14.5); WHITE BLOOD COUNT 3.9 10*3/uL (4.8-10.8)
[2016-12-13 10:43] LABS: ALBUMIN 2.1 gm/dl (3.1-4.5); ALKALINE PHOSPHATASE 121 U/L (45-117); BILIRUBIN, TOTAL 0.7 mg/dl (0.2-1.0); BUN 3 mg/dl (7-24); CARBON DIOXIDE 18 mmol/L (21-32); CHLORIDE 116 mmol/L (98-107); EST GLOM FILT AFRICAN AMERICAN > 60 ml/min; GLUCOSE 87 mg/dL (65-99); POTASSIUM 3.3 mmol/L (3.5-5.1); SGOT/AST 39 IU/L (3-35); SGPT/ALT 20 U/L (12-78); SODIUM 141 mmol/L (136-145); TOTAL PROTEIN 6.2 gm/dL (6.4-8.2)
[2016-12-13 12:00] VITALS: BP 130/94
== END 2016-12-13 14:51 | disposition home or self-care (01) | DRG 871 ==
LOC: ED 16:41 → EDHOLD 18:50 → 5E 18:50
PROVIDERS: Family Medicine; Internal Medicine; Internal Medicine Hospice and Palliative Medicine; Nurse Practitioner Family
DX: A41.9 Sepsis, unspecified organism (principal); E43 Unspecified severe protein-calorie malnutrition; I50.32 Chronic diastolic (congestive) heart failure; K72.90 Hepatic failure, unspecified without coma; I11.0 Hypertensive heart disease with heart failure; K76.0 Fatty (change of) liver, not elsewhere classified; F10.239 Alcohol dependence with withdrawal, unspecified; N30.01 Acute cystitis with hematuria; F31.60 Bipolar disorder, current episode mixed, unspecified; B19.20 Unspecified viral hepatitis C without hepatic coma; E87.6 Hypokalemia; D53.9 Nutritional anemia, unspecified; R74.0 Nonspecific elevation of levels of transaminase and lactic acid dehydrogenase [LDH]; Z96.698 Presence of other orthopedic joint implants; E55.9 Vitamin D deficiency, unspecified; F41.9 Anxiety disorder, unspecified; W18.30XA Fall on same level, unspecified, initial encounter; B18.2 Chronic viral hepatitis C; M19.90 Unspecified osteoarthritis, unspecified site; Z68.24 Body mass index [BMI] 24.0-24.9, adult; Y93.89 Activity, other specified; Y92.89 Other specified places as the place of occurrence of the external cause; Y99.8 Other external cause status; Z82.49 Family history of ischemic heart disease and other diseases of the circulatory system; Z88.8 Allergy status to other drugs, medicaments and biological substances; Z79.899 Other long term (current) drug therapy

== ENCOUNTER 2017-01-04 14:55 | Inpatient (IN) | payer OTHER ==
[~2017-01-04] VITALS: Ht 157.5 cm; Wt 66.7 kg
[~2017-01-04 14:55] MED LIST changes: +KRISTALOSE20 GM PO
[2017-01-04 15:09] VITALS: BP 136/88
[2017-01-04 15:19] LABS: BASO % 0.8 % (0.0-1.0); EOS % 0.8 % (1.0-4.0); HEMATOCRIT 33.5 % (37.0-47.0); HEMOGLOBIN 10.9 g/dl (12.0-16.0); LYMPH # 1.2 10*3/uL (1.3-4.4); LYMPH % 23.2 % (27.0-41.0); MEAN CORPUSCULAR HGB 33.9 pg (27.0-31.0); MEAN CORPUSCULAR HGB CONC 32.5 g/dl (33.0-37.0); MONO # 0.5 10*3/uL (0.1-1.0); MONO % 10.5 % (3.0-9.0); NEUT # 3.3 10*3/uL (2.3-7.9); NEUT % 64.5 % (47.0-73.0); PLATELET COUNT AUTOMATED 159 10*3/uL (130-400); RED BLOOD COUNT 3.22 10*6/uL (4.10-5.10); RED CELL DISTRI WIDTH 20.3 % (0-14.5); WHITE BLOOD COUNT 5.1 10*3/uL (4.8-10.8)
[2017-01-04 15:35] LABS: ALKALINE PHOSPHATASE 164 U/L (45-117); BUN 6 mg/dl (7-24); CHLORIDE 111 mmol/L (98-107); CREATININE 1.04 mg/dL (0.55-1.02); LIPASE 100 U/L (73-393); MAGNESIUM 2.1 mg/dL (1.5-2.1); SGOT/AST 80 IU/L (3-35); SGPT/ALT 37 U/L (12-78); SODIUM 140 mmol/L (136-145); TOTAL PROTEIN 8.1 gm/dL (6.4-8.2)
[2017-01-04 15:39] LABS: ACETAMINOPHEN (TYLENOL) < 2.0 ug/ml (10-30); ETHYL ALCOHOL < 3.0 mg/dl (<3); POTASSIUM 2.3 mmol/L (3.5-5.1); TROPONIN I < 0.015 ng/ml (<0.045)
[2017-01-04 17:06] LABS: BILIRUBIN 1+ (NEGATIVE); BLOOD TRACE-INTACT (NEGATIVE); CLARITY SL CLOUDY (CLEAR); COLOR YELLOW (YELLOW); GLUCOSE NEGATIVE (NEGATIVE); KETONE 2+ (NEGATIVE); LEUKO ESTERASE 3+ (NEGATIVE); NITRITE POSITIVE (NEGATIVE); PH 6.5 (5.0-9.0); SPECIFIC GRAVITY 1.015 (1.005-1.030)
[2017-01-04 17:13] LABS: BACTERIA 3+; EPITHELIAL CELLS 0-2; WBC 41-50 wbc/hpf (0-5)
[2017-01-04 17:22] LABS: URINE AMPHETAMINES < 1000 (1000ng/ml); URINE BARBITURATES < 200 (200ng/ml); URINE BENZODIAZEPINES > 200 (200ng/ml); URINE CANNABINOIDS (THC) < 50 (50ng/ml); URINE COCAINE < 300 (300ng/ml); URINE METHADONE < 300 (300ng/ml); URINE OPIATES > 300 (300ng/ml)
[2017-01-04 17:30] VITALS: BP 155/100; BP 156/100
[2017-01-04 17:30] LABS: URINE PHENCYCLIDINE < 25 (25ng/ml)
[2017-01-04 20:00] VITALS: BP 160/114
[2017-01-04 21:28] LABS: BUN 5 mg/dl (7-24); CHLORIDE 116 mmol/L (98-107); CREATININE 1.07 mg/dL (0.55-1.02); POTASSIUM 2.9 mmol/L (3.5-5.1); SODIUM 144 mmol/L (136-145)
[2017-01-05] VITALS: BP 124/69
[2017-01-05 03:15] VITALS: BP 123/69
[2017-01-05 07:09] LABS: BASO % 0.4 % (0.0-1.0); EOS # 0.1 10*3/uL (0.0-0.4); EOS % 1.5 % (1.0-4.0); HEMATOCRIT 34.4 % (37.0-47.0); HEMOGLOBIN 10.9 g/dl (12.0-16.0); LYMPH # 1.1 10*3/uL (1.3-4.4); LYMPH % 24.8 % (27.0-41.0); MEAN CELL VOLUME 106.8 fl (81.0-99.0); MEAN CORPUSCULAR HGB 33.9 pg (27.0-31.0); MEAN CORPUSCULAR HGB CONC 31.7 g/dl (33.0-37.0); MEAN PLATELET VOLUME 9.5 fl (9.6-12.3); MONO # 0.5 10*3/uL (0.1-1.0); MONO % 11.9 % (3.0-9.0); NEUT # 2.8 10*3/uL (2.3-7.9); NEUT % 60.7 % (47.0-73.0); PLATELET COUNT AUTOMATED 128 10*3/uL (130-400); RED BLOOD COUNT 3.22 10*6/uL (4.10-5.10); RED CELL DISTRI WIDTH 20.9 % (0-14.5); WHITE BLOOD COUNT 4.6 10*3/uL (4.8-10.8)
[2017-01-05 07:31] LABS: CHLORIDE 117 mmol/L (98-107); POTASSIUM 2.7 mmol/L (3.5-5.1); SODIUM 146 mmol/L (136-145)
[2017-01-05 07:38] LABS: ALBUMIN 2.8 gm/dl (3.1-4.5); ALKALINE PHOSPHATASE 148 U/L (45-117); BUN 5 mg/dl (7-24); CREATININE 0.94 mg/dL (0.55-1.02); MAGNESIUM 2.3 mg/dL (1.5-2.1); PHOSPHOROUS 3.5 mg/dL (2.5-4.9); SGOT/AST 66 IU/L (3-35); SGPT/ALT 34 U/L (12-78); TOTAL PROTEIN 7.5 gm/dL (6.4-8.2)
[2017-01-05 08:00] VITALS: BP 155/88
[2017-01-05 12:00] VITALS: BP 149/86
[2017-01-05] MEDS ORDERED: NEURONTIN300 MG PO (15:01)
[2017-01-05] MEDS ORDERED: DOXEPIN25 MG PO (15:02)
[2017-01-05 16:00] VITALS: BP 144/87
[2017-01-05 20:00] VITALS: BP 157/82
[2017-01-06] VITALS: BP 158/78
[2017-01-06 06:11] LABS: EOS # 0.1 10*3/uL (0.0-0.4); EOS % 2.6 % (1.0-4.0); HEMATOCRIT 34.8 % (37.0-47.0); HEMOGLOBIN 11.1 g/dl (12.0-16.0); LYMPH # 1.2 10*3/uL (1.3-4.4); LYMPH % 38.9 % (27.0-41.0); MEAN CELL VOLUME 106.7 fl (81.0-99.0); MEAN CORPUSCULAR HGB CONC 31.9 g/dl (33.0-37.0); MEAN PLATELET VOLUME 9.9 fl (9.6-12.3); MONO # 0.4 10*3/uL (0.1-1.0); MONO % 12.1 % (3.0-9.0); NEUT # 1.4 10*3/uL (2.3-7.9); NEUT % 45.4 % (47.0-73.0); PLATELET COUNT AUTOMATED 122 10*3/uL (130-400); RED BLOOD COUNT 3.26 10*6/uL (4.10-5.10); RED CELL DISTRI WIDTH 21.2 % (0-14.5); WHITE BLOOD COUNT 3.1 10*3/uL (4.8-10.8)
[2017-01-06 06:31] LABS: ALBUMIN 2.9 gm/dl (3.1-4.5); ALKALINE PHOSPHATASE 146 U/L (45-117); BUN 2 mg/dl (7-24); CHLORIDE 119 mmol/L (98-107); POTASSIUM 2.8 mmol/L (3.5-5.1); SGOT/AST 54 IU/L (3-35); SGPT/ALT 31 U/L (12-78); SODIUM 145 mmol/L (136-145); TOTAL PROTEIN 7.2 gm/dL (6.4-8.2)
[2017-01-06 08:00] VITALS: BP 150/79; BP 152/88
[2017-01-06 12:00] VITALS: BP 148/86
[2017-01-06 16:00] VITALS: BP 143/92
[2017-01-06 20:00] VITALS: BP 128/76
[2017-01-07 00:25] VITALS: BP 154/98
[2017-01-07 07:12] LABS: BASO % 0.8 % (0.0-1.0); EOS # 0.1 10*3/uL (0.0-0.4); HEMATOCRIT 39.3 % (37.0-47.0); HEMOGLOBIN 12.2 g/dl (12.0-16.0); LYMPH # 1.3 10*3/uL (1.3-4.4); LYMPH % 36.7 % (27.0-41.0); MEAN CELL VOLUME 106.8 fl (81.0-99.0); MEAN CORPUSCULAR HGB 33.2 pg (27.0-31.0); MEAN PLATELET VOLUME 10.2 fl (9.6-12.3); MONO # 0.4 10*3/uL (0.1-1.0); MONO % 11.6 % (3.0-9.0); NEUT # 1.7 10*3/uL (2.3-7.9); NEUT % 47.6 % (47.0-73.0); PLATELET COUNT AUTOMATED 136 10*3/uL (130-400); RED BLOOD COUNT 3.68 10*6/uL (4.10-5.10); RED CELL DISTRI WIDTH 21.2 % (0-14.5); WHITE BLOOD COUNT 3.6 10*3/uL (4.8-10.8)
[2017-01-07 07:31] LABS: ALBUMIN 2.8 gm/dl (3.1-4.5); BUN 2 mg/dl (7-24); CHLORIDE 121 mmol/L (98-107); POTASSIUM 2.9 mmol/L (3.5-5.1); SODIUM 146 mmol/L (136-145)
[2017-01-07 07:34] LABS: ALKALINE PHOSPHATASE 159 U/L (45-117); CREATININE 1.04 mg/dL (0.55-1.02); SGOT/AST 50 IU/L (3-35); SGPT/ALT 32 U/L (12-78); TOTAL PROTEIN 7.9 gm/dL (6.4-8.2)
[2017-01-07 08:00] VITALS: BP 128/93
[2017-01-07 16:00] VITALS: BP 154/98
[2017-01-07 20:00] VITALS: BP 143/86
[2017-01-08] VITALS: BP 91/57
[2017-01-08 06:17] LABS: BASO % 0.8 % (0.0-1.0); EOS # 0.1 10*3/uL (0.0-0.4); EOS % 2.8 % (1.0-4.0); HEMATOCRIT 34.5 % (37.0-47.0); HEMOGLOBIN 10.8 g/dl (12.0-16.0); LYMPH # 1.5 10*3/uL (1.3-4.4); LYMPH % 43.1 % (27.0-41.0); MEAN CELL VOLUME 105.2 fl (81.0-99.0); MEAN CORPUSCULAR HGB 32.9 pg (27.0-31.0); MEAN CORPUSCULAR HGB CONC 31.3 g/dl (33.0-37.0); MEAN PLATELET VOLUME 10.4 fl (9.6-12.3); MONO # 0.3 10*3/uL (0.1-1.0); MONO % 9.6 % (3.0-9.0); NEUT # 1.6 10*3/uL (2.3-7.9); NEUT % 43.7 % (47.0-73.0); PLATELET COUNT AUTOMATED 135 10*3/uL (130-400); RED BLOOD COUNT 3.28 10*6/uL (4.10-5.10); RED CELL DISTRI WIDTH 20.2 % (0-14.5); WHITE BLOOD COUNT 3.6 10*3/uL (4.8-10.8)
[2017-01-08 06:32] LABS: ALBUMIN 2.4 gm/dl (3.1-4.5); ALKALINE PHOSPHATASE 140 U/L (45-117); BUN 1 mg/dl (7-24); CHLORIDE 116 mmol/L (98-107); CREATININE 0.96 mg/dL (0.55-1.02); POTASSIUM 3.1 mmol/L (3.5-5.1); SGOT/AST 48 IU/L (3-35); SGPT/ALT 29 U/L (12-78); SODIUM 140 mmol/L (136-145)
[2017-01-08 08:00] VITALS: BP 120/68
[2017-01-08 12:00] VITALS: BP 122/64
[2017-01-08 16:00] VITALS: BP 115/76
[2017-01-08 20:00] VITALS: BP 119/75
[2017-01-09] VITALS: BP 126/69
[2017-01-09 07:17] LABS: EOS # 0.1 10*3/uL (0.0-0.4); EOS % 2.1 % (1.0-4.0); HEMATOCRIT 35.6 % (37.0-47.0); HEMOGLOBIN 11.1 g/dl (12.0-16.0); LYMPH # 1.1 10*3/uL (1.3-4.4); LYMPH % 29.6 % (27.0-41.0); MEAN CORPUSCULAR HGB 32.7 pg (27.0-31.0); MEAN CORPUSCULAR HGB CONC 31.2 g/dl (33.0-37.0); MEAN PLATELET VOLUME 10.9 fl (9.6-12.3); MONO # 0.4 10*3/uL (0.1-1.0); MONO % 10.2 % (3.0-9.0); NEUT # 2.2 10*3/uL (2.3-7.9); NEUT % 56.8 % (47.0-73.0); PLATELET COUNT AUTOMATED 132 10*3/uL (130-400); RED BLOOD COUNT 3.39 10*6/uL (4.10-5.10); RED CELL DISTRI WIDTH 19.9 % (0-14.5); WHITE BLOOD COUNT 3.8 10*3/uL (4.8-10.8)
[2017-01-09 07:25] LABS: BUN 4 mg/dl (7-24); CHLORIDE 113 mmol/L (98-107); CREATININE 0.76 mg/dL (0.55-1.02); POTASSIUM 2.6 mmol/L (3.5-5.1); SODIUM 140 mmol/L (136-145)
[2017-01-09 08:00] VITALS: BP 137/92
[2017-01-09 16:00] VITALS: BP 122/70
[2017-01-09 20:00] VITALS: BP 141/88
[2017-01-10] VITALS: BP 110/69
[2017-01-10 06:26] LABS: BASO % 0.8 % (0.0-1.0); EOS # 0.1 10*3/uL (0.0-0.4); EOS % 2.1 % (1.0-4.0); HEMATOCRIT 34.1 % (37.0-47.0); HEMOGLOBIN 10.9 g/dl (12.0-16.0); LYMPH # 1.3 10*3/uL (1.3-4.4); MEAN CELL VOLUME 105.6 fl (81.0-99.0); MEAN CORPUSCULAR HGB 33.7 pg (27.0-31.0); MEAN PLATELET VOLUME 10.2 fl (9.6-12.3); MONO # 0.5 10*3/uL (0.1-1.0); MONO % 9.6 % (3.0-9.0); NEUT # 2.8 10*3/uL (2.3-7.9); NEUT % 59.3 % (47.0-73.0); PLATELET COUNT AUTOMATED 114 10*3/uL (130-400); RED BLOOD COUNT 3.23 10*6/uL (4.10-5.10); RED CELL DISTRI WIDTH 19.5 % (0-14.5); WHITE BLOOD COUNT 4.8 10*3/uL (4.8-10.8)
[2017-01-10 06:42] LABS: ALBUMIN 2.2 gm/dl (3.1-4.5); ALKALINE PHOSPHATASE 125 U/L (45-117); BUN 3 mg/dl (7-24); CHLORIDE 117 mmol/L (98-107); CREATININE 0.77 mg/dL (0.55-1.02); POTASSIUM 2.9 mmol/L (3.5-5.1); SGOT/AST 38 IU/L (3-35); SGPT/ALT 24 U/L (12-78); SODIUM 140 mmol/L (136-145); TOTAL PROTEIN 6.5 gm/dL (6.4-8.2)
[2017-01-10 08:00] VITALS: BP 139/86
[2017-01-10 12:00] VITALS: BP 124/85
[2017-01-10] MEDS ORDERED: LEVAQUIN250 M1 PO (13:41)
[2017-01-10] MEDS ORDERED: LACTULOSE20 GM/30 M PO (13:41)
[2017-01-10 16:00] VITALS: BP 148/98
== END 2017-01-10 18:31 | disposition short-term general hospital (02) | DRG 872 ==
LOC: ED 14:55 → EDHOLD 16:43 → 5E 16:43
PROVIDERS: Emergency Medicine; Internal Medicine; ADMIT Emergency Medicine
DX: A41.9 Sepsis, unspecified organism (principal); E87.0 Hyperosmolality and hypernatremia; E44.0 Moderate protein-calorie malnutrition; E72.20 Disorder of urea cycle metabolism, unspecified; I50.32 Chronic diastolic (congestive) heart failure; I11.0 Hypertensive heart disease with heart failure; S00.03XA Contusion of scalp, initial encounter; D53.9 Nutritional anemia, unspecified; N30.01 Acute cystitis with hematuria; D69.6 Thrombocytopenia, unspecified; K72.90 Hepatic failure, unspecified without coma; E87.6 Hypokalemia; F31.9 Bipolar disorder, unspecified; B19.20 Unspecified viral hepatitis C without hepatic coma; K62.3 Rectal prolapse; K76.0 Fatty (change of) liver, not elsewhere classified; E80.6 Other disorders of bilirubin metabolism; F41.9 Anxiety disorder, unspecified; M19.90 Unspecified osteoarthritis, unspecified site; F10.10 Alcohol abuse, uncomplicated; E55.9 Vitamin D deficiency, unspecified; X58.XXXA Exposure to other specified factors, initial encounter; Y90.9 Presence of alcohol in blood, level not specified; D75.89 Other specified diseases of blood and blood-forming organs; Z96.642 Presence of left artificial hip joint; Z68.27 Body mass index [BMI] 27.0-27.9, adult; Z88.8 Allergy status to other drugs, medicaments and biological substances; Z79.899 Other long term (current) drug therapy; Z82.49 Family history of ischemic heart disease and other diseases of the circulatory system; Z82.0 Family history of epilepsy and other diseases of the nervous system; Z87.891 Personal history of nicotine dependence; Y93.89 Activity, other specified; Y92.89 Other specified places as the place of occurrence of the external cause; Y99.8 Other external cause status

== ENCOUNTER 2017-01-23 21:06 | Inpatient (IN) | payer OTHER ==
[~2017-01-23] VITALS: Ht 157.5 cm; Wt 66.3 kg
--- NOTE | ~2017-01-23 | CON ---
[place], [place] REPORT OF CONSULTATION NAME: ENEIDA LORENZ [facility] #: [id number] UNIT #: [id number] ROOM: [place] [address] DOCTOR: MARIA DE JESUS MOHAN ED.D) BIRTHDATE: [birth year] DOS: 01/25/2017 HISTORY OF PRESENT ILLNESS: The patient is a 51-year-old female referred by the hospitalist for an evaluation after she has threatened suicide. At the present time, this patient is on the Intensive Care Unit at [facility]. This patient states she is 3 times and has 3 adult children. She states she is on SSI. She does not have a regular family physician at this time but her medical history is pertinent for alcohol dependence, bipolar disorder, congestive heart failure, hypertension, hepatitis C, and vitamin D deficiency. Her medications at home include Wellbutrin, diazepam, doxepin, Protonix, Neurontin, and vitamin B1. She is also on lactulose here at the hospital. This patient was awake, alert and oriented in all three spheres. She states she was drinking 2/5 of alcohol a day, but quit approximately 2 weeks ago when she was in the hospital. Prior to coming into the hospital, she drank a pint of liquor. Her blood alcohol was over 300. This patient adamantly denies any suicidal ideation or plan. She does not appear to be having any active hallucinations or delusional thoughts. She states that she told the Emergency Room doctor that she was going to kill herself, although she states "I was really drunk and I really didn't mean that." In my opinion, this patient is not a danger to herself or others and thinks that she can be released. She is competent to make informed healthcare decisions. DIAGNOSES: 1. Alcohol dependence. 2. Bipolar 1 - mixed. RECOMMENDATIONS: 1. Follow with Dr. Friedman when she is discharged from the hospital. 2. The patient is not a danger to herself or others and does not need a pink slip. Thank you very much for this consult. MARIA DE JESUS MOHAN ED.D CM:CONSTR:REPORT OF CONSULTATION 2 01/25/17 1513 interface
--- NOTE | ~2017-01-23 | EKG ---
[place], [place] ELECTROCARDIOGRAM REPORT NAME: ENEIDA LORENZ UNIT #: [id number] ROOM: [place] [address] DOCTOR: VISHNU LEONARD,CLARE BIRTHDATE: [birth year] DOS: TIME: 2203 hours. IMPRESSION: Sinus rhythm. CLARE MARES MD CM:EKGRPT:ELECTROCARDIOGRAM REPORT 1244 1300 CLARE MARES MD
[~2017-01-23 21:06] MED LIST changes: -DIAZEPAM5 MG PO; +LEVAQUIN250 M1 PO; +VALIUM10 MG PO
[2017-01-23 21:11] VITALS: BP 118/85
[2017-01-23 22:20] LABS: ALBUMIN 2.8 gm/dl (3.1-4.5); ALKALINE PHOSPHATASE 193 U/L (45-117); BUN 9 mg/dl (7-24); CHLORIDE 116 mmol/L (98-107); CREATININE 0.95 mg/dL (0.55-1.02); POTASSIUM 3.3 mmol/L (3.5-5.1); SGPT/ALT 41 U/L (12-78); SODIUM 145 mmol/L (136-145)
[2017-01-23 22:21] LABS: ACETAMINOPHEN (TYLENOL) < 2.0 ug/ml (10-30)
[2017-01-23 22:22] LABS: SGOT/AST 101 IU/L (3-35)
[2017-01-23 22:25] LABS: BASO % 0.4 % (0.0-1.0); EOS # 0.1 10*3/uL (0.0-0.4); HEMATOCRIT 34.4 % (37.0-47.0); LYMPH # 2.8 10*3/uL (1.3-4.4); LYMPH % 40.5 % (27.0-41.0); MEAN CELL VOLUME 99.1 fl (81.0-99.0); MEAN CORPUSCULAR HGB 31.7 pg (27.0-31.0); MEAN PLATELET VOLUME 10.6 fl (9.6-12.3); MONO # 0.3 10*3/uL (0.1-1.0); MONO % 4.9 % (3.0-9.0); NEUT # 3.7 10*3/uL (2.3-7.9); NEUT % 52.9 % (47.0-73.0); PLATELET COUNT AUTOMATED 153 10*3/uL (130-400); RED BLOOD COUNT 3.47 10*6/uL (4.10-5.10); RED CELL DISTRI WIDTH 17.2 % (0-14.5)
--- NOTE | 2017-01-23 22:33 | NUR ---
PATIENT ASSISTED TO [facility] [place], GAIT STEADY AT THIS TIME.
[2017-01-23 22:43] LABS: BILIRUBIN NEGATIVE (NEGATIVE); BLOOD NEGATIVE (NEGATIVE); CLARITY SL CLOUDY (CLEAR); COLOR YELLOW (YELLOW); GLUCOSE NEGATIVE (NEGATIVE); KETONE NEGATIVE (NEGATIVE); LEUKO ESTERASE NEGATIVE (NEGATIVE); NITRITE NEGATIVE (NEGATIVE); PH 6.5 (5.0-9.0); SPECIFIC GRAVITY <= 1.005 (1.005-1.030); UROBILINOGEN 0.2 E.U./dl (0.2-1.0)
[2017-01-23 22:49] LABS: BACTERIA 4+; RBC 0-2 rbc/hpf (0-2)
[2017-01-23 22:52] LABS: URINE AMPHETAMINES < 1000 (1000ng/ml); URINE BARBITURATES < 200 (200ng/ml); URINE BENZODIAZEPINES > 200 (200ng/ml); URINE CANNABINOIDS (THC) < 50 (50ng/ml); URINE COCAINE < 300 (300ng/ml); URINE METHADONE < 300 (300ng/ml); URINE OPIATES < 300 (300ng/ml)
[2017-01-23 22:53] LABS: URINE PHENCYCLIDINE < 25 (25ng/ml)
[2017-01-23 23:00] VITALS: BP 129/92
[2017-01-24] VITALS (7 sets, daily range): BP systolic 107–152; BP diastolic 71–90
--- NOTE | 2017-01-24 00:45 | NUR ---
A 51, admitted to ICCU, under the services of MASOUD Vegas DO with a diagnosis of ALCOHOLISM. Chief complaint is ALCOHOLISM. Patient arrived via stretcher from ER. Monitor applied. Initial assessment completed. Vital signs taken and recorded. MASOUD VEGAS DO notified of admission to the unit. Orders received. See assessment for past medical history, medications and allergies. Patient and/or family oriented to unit. [facility] ICCU visitation policy reviewed. Clothing/patient valuable form completed. KELVIN WELCH
--- NOTE | 2017-01-24 00:45 | NUR ---
A 51, admitted to [facility]U, under the services of MASOUD Vegas DO with a diagnosis of ALCOHOL INTOXICATION. Chief complaint is FREQUENT FALLS. Patient arrived via stretcher from ER. Monitor applied. Initial assessment completed. Vital signs taken and recorded. MASOUD VEGAS DO notified of admission to the unit. Orders received. See assessment for past medical history, medications and allergies. Patient and/or family oriented to unit. [facility] ICCU visitation policy reviewed. Clothing/patient valuable form completed. YUNI CARRILLO
[2017-01-24] MEDS ORDERED: LACTULOSE10 GM/151 PO (01:03)
--- NOTE | 2017-01-24 02:19 | NUR ---
0210 PT MEDICATED WITH MOTRIN 800MG FOR C/O'S GENERALIZED DISCOMFORT. ATIVAN 1MG IV GIVEN PER REQUEST FOR ANXIETY. WILL MONITOR. PT REMAINS VERY COOPERATIVE AND PLEASANT.
--- NOTE | 2017-01-24 02:58 | NUR ---
EARLIER MEDS EFFECTIVE. RESTING IN BED WITH EYES CLOSED. APPEARS TO BE SLEEPING.
[2017-01-24 05:15] LABS: BASO % 0.5 % (0.0-1.0); EOS # 0.1 10*3/uL (0.0-0.4); EOS % 1.8 % (1.0-4.0); HEMATOCRIT 32.4 % (37.0-47.0); HEMOGLOBIN 10.2 g/dl (12.0-16.0); LYMPH # 1.8 10*3/uL (1.3-4.4); LYMPH % 39.6 % (27.0-41.0); MEAN CELL VOLUME 100.3 fl (81.0-99.0); MEAN CORPUSCULAR HGB 31.6 pg (27.0-31.0); MEAN CORPUSCULAR HGB CONC 31.5 g/dl (33.0-37.0); MEAN PLATELET VOLUME 10.9 fl (9.6-12.3); MONO # 0.4 10*3/uL (0.1-1.0); MONO % 7.9 % (3.0-9.0); NEUT # 2.2 10*3/uL (2.3-7.9); PLATELET COUNT AUTOMATED 120 10*3/uL (130-400); RED BLOOD COUNT 3.23 10*6/uL (4.10-5.10); RED CELL DISTRI WIDTH 17.2 % (0-14.5); WHITE BLOOD COUNT 4.4 10*3/uL (4.8-10.8)
[2017-01-24 05:46] LABS: ALBUMIN 2.5 gm/dl (3.1-4.5); ALKALINE PHOSPHATASE 154 U/L (45-117); BUN 9 mg/dl (7-24); CHLORIDE 113 mmol/L (98-107); CREATININE 0.68 mg/dL (0.55-1.02); SGOT/AST 71 IU/L (3-35); SGPT/ALT 31 U/L (12-78); SODIUM 145 mmol/L (136-145); TOTAL PROTEIN 6.5 gm/dL (6.4-8.2)
[2017-01-24 05:48] LABS: POTASSIUM 2.4 mmol/L (3.5-5.1)
--- NOTE | 2017-01-24 05:55 | NUR ---
0547 PT K+ LEVEL IS 2.4. DR. AGUIRRE CALLED AND ORDERS RECEIVED. LATE ENTRY PT IS ABLE TO STATE HER HOME MEDS.
--- NOTE | 2017-01-24 06:20 | NUR ---
RESTING IN BE WITH EYES CLOSED. APPEARS TO BE SLEEPING. NO DISTRESS NOTED. CONDITION GUARDED.
--- NOTE | 2017-01-24 06:51 | NUR ---
ATTEMPTED TO GIVE 1ST K RUN. PT YELLING AND CRYING. ADDED NSS TO RUN KVO. CONT TO CALL OUT AND CRY. K RUN STOPPED. DR. AGUIRRE CALLED AND NOTIFIED. ORDERS RECEIVED.
--- NOTE | 2017-01-24 09:59 | NUR ---
PATIENT C/O PAIN ALL OVER. MEDICATED WITH MOTRIN PER PRN ORDER. WILL CONTINUE TO MONITOR.
--- NOTE | 2017-01-24 11:04 | NUR ---
NOTIFIED OF NEW CONSULT ORDER. STATED HE WILL SEE PATIENT TOMORROW.
[2017-01-24] MEDS ORDERED: PROTONIX40 MG PO (12:55)
[2017-01-24] MEDS ORDERED: VITAMIN B-1100 M1 PO (12:56)
[2017-01-24] MEDS ORDERED: NATURE'S BLEND F1 MG PO (12:58)
[2017-01-24 13:13] LABS: BUN 8 mg/dl (7-24); CHLORIDE 113 mmol/L (98-107); CREATININE 0.67 mg/dL (0.55-1.02); POTASSIUM 3.3 mmol/L (3.5-5.1); SODIUM 142 mmol/L (136-145)
--- NOTE | 2017-01-24 20:05 | NUR ---
1944 RESTING IN BED WATCHING TV. HEP LOCK INTACT. REMAINS ALERT, BUT IS FORGETFUL. NO DISTRESS NOTED. NO C/O'S PAIN VOICED AT PRESENT. CALL LIGHT USE RE-INFORCED.
--- NOTE | 2017-01-24 21:45 | NUR ---
2044 MOTRIN 1 PO GIVEN PER REQUEST FOR GENERALIZED DISCOMFORT. WILL MONITOR. 2129 ATIVAN 1MG IV GIVEN PER REQUEST FOR ANXIETY AND "TREMORS". NO TREMORS NOTED. WILL CONT TO MONITOR,
--- NOTE | 2017-01-24 22:17 | NUR ---
EARLIER MEDS EFFECTIVE. RESTING IN BED WITH EYES CLOSED. APPEARS TO BE SLEEPING.
[2017-01-25] VITALS: BP 114/64
--- NOTE | 2017-01-25 02:54 | NUR ---
REMAINS SLEEPING WTHOUT DISTRESS.
[2017-01-25 04:00] VITALS: BP 110/60
[2017-01-25 05:09] LABS: BASO % 0.3 % (0.0-1.0); EOS # 0.1 10*3/uL (0.0-0.4); EOS % 2.8 % (1.0-4.0); HEMATOCRIT 30.5 % (37.0-47.0); HEMOGLOBIN 9.6 g/dl (12.0-16.0); LYMPH # 1.1 10*3/uL (1.3-4.4); LYMPH % 34.1 % (27.0-41.0); MEAN CORPUSCULAR HGB 31.5 pg (27.0-31.0); MEAN CORPUSCULAR HGB CONC 31.5 g/dl (33.0-37.0); MONO # 0.3 10*3/uL (0.1-1.0); MONO % 8.5 % (3.0-9.0); NEUT # 1.7 10*3/uL (2.3-7.9); PLATELET COUNT AUTOMATED 100 10*3/uL (130-400); RED BLOOD COUNT 3.05 10*6/uL (4.10-5.10); RED CELL DISTRI WIDTH 16.7 % (0-14.5); WHITE BLOOD COUNT 3.2 10*3/uL (4.8-10.8)
[2017-01-25 05:35] LABS: BUN 7 mg/dl (7-24); CHLORIDE 115 mmol/L (98-107); CREATININE 0.62 mg/dL (0.55-1.02); POTASSIUM 3.2 mmol/L (3.5-5.1); SODIUM 143 mmol/L (136-145)
--- NOTE | 2017-01-25 06:11 | NUR ---
SLEPT WELL THIS SHIFT. NO DISTRESS NOTED. CONDITION GUARDED
[2017-01-25 08:00] VITALS: BP 136/97
--- NOTE | 2017-01-25 08:25 | NUR ---
DR MOHAN IN TO SEE PT.
--- NOTE | 2017-01-25 08:42 | NUR ---
Dr. Smith stopped and asked if I had anything to offer patient. I stated I have the number for the [facility] and a homeless senior living. He said that would be fine, patient is no longer pink slipped and can go from his standpoint. Provided patient with both lists.
--- NOTE | 2017-01-25 10:19 | NUR ---
DR MOHAN STATED PT IS NOT SUICIDAL...REMOVE PINK SLIP. PT CAN BE DISCHARGED WHEN MEDICALLY STABLE.
--- NOTE | 2017-01-25 10:21 | NUR ---
PT FOUND A PLACE TO STAY IN [place]. SHE HAS AN APPOINTMENT [facility]ED[facility]. AM.
--- NOTE | 2017-01-25 10:50 | NUR ---
PT C/O ANXIETY AND AGITATION R/T "MY WITHDRAWL" MEDICATED PT PER PRN ORDER WITH ATIVAN.
--- NOTE | 2017-01-25 11:15 | NUR ---
PT RESTING. EARLIER ATIVAN EFFECTIVE.
[2017-01-25 12:00] VITALS: BP 118/76
--- NOTE | 2017-01-25 13:57 | NUR ---
DISCUSSED HOME MEDS WITH PT. TRIED TO CALL [facility] BUT IT WAS BUSY. WILL TRY AGAIN LATER.
[2017-01-25 16:00] VITALS: BP 136/82
--- NOTE | 2017-01-25 16:46 | NUR ---
MED LIST RECEIVIED FROM JOHN SON. UPDATED MED.REC.
--- NOTE | 2017-01-25 18:13 | NUR ---
PT SIGNED OUT AMA AFTER SIGNING AMA PAPERS AND DR MALONE STATING THAT PT IS NO LONGER PINK SLIPPED AND CAN SIGN OUT AMA.
== END 2017-01-25 18:13 | disposition left against medical advice (07) | DRG 894 ==
LOC: ED 21:06 → ICCU 01-24 00:02 → EDHOLD 01-24 00:02 → ICCU 01-24 00:02
PROVIDERS: Emergency Medicine Emergency Medical Services; Hospitalist; Internal Medicine; ADMIT Internal Medicine
DX: F10.220 Alcohol dependence with intoxication, uncomplicated (principal); E43 Unspecified severe protein-calorie malnutrition; D61.818 Other pancytopenia; R45.851 Suicidal ideations; I50.32 Chronic diastolic (congestive) heart failure; I11.0 Hypertensive heart disease with heart failure; E87.8 Other disorders of electrolyte and fluid balance, not elsewhere classified; D69.6 Thrombocytopenia, unspecified; F31.60 Bipolar disorder, current episode mixed, unspecified; S42.022K Displaced fracture of shaft of left clavicle, subsequent encounter for fracture with nonunion; M19.90 Unspecified osteoarthritis, unspecified site; F41.9 Anxiety disorder, unspecified; R29.6 Repeated falls; R74.0 Nonspecific elevation of levels of transaminase and lactic acid dehydrogenase [LDH]; R00.0 Tachycardia, unspecified; E87.6 Hypokalemia; K72.90 Hepatic failure, unspecified without coma; S10.93XA Contusion of unspecified part of neck, initial encounter; W18.39XA Other fall on same level, initial encounter; S00.83XA Contusion of other part of head, initial encounter; S00.03XA Contusion of scalp, initial encounter; Y90.0 Blood alcohol level of less than 20 mg/100 ml; Z53.21 Procedure and treatment not carried out due to patient leaving prior to being seen by health care provider; Z88.8 Allergy status to other drugs, medicaments and biological substances; Z79.899 Other long term (current) drug therapy; Z87.440 Personal history of urinary (tract) infections; Z87.891 Personal history of nicotine dependence; Z82.49 Family history of ischemic heart disease and other diseases of the circulatory system; Y93.89 Activity, other specified; Y92.89 Other specified places as the place of occurrence of the external cause; Y99.8 Other external cause status; Z68.26 Body mass index [BMI] 26.0-26.9, adult

== ENCOUNTER 2017-02-08 18:50 | Inpatient (IN) | payer OTHER ==
[~2017-02-08] VITALS: Ht 162.5 cm; Wt 65.9 kg
--- NOTE | ~2017-02-08 | CON ---
[place], [place] REPORT OF CONSULTATION NAME: ENEIDA LORENZ UNIT #: [id number] ROOM: 524 DOCTOR: RD PEREZ MD BIRTHDATE: [birth year] DOS: 02/10/2017 CHIEF COMPLAINT: "I don't remember why I got here or how I even got here." HISTORY OF PRESENT ILLNESS: This is a 51-year-old white female who was admitted due to acute alcohol intoxication. The patient had presented to the Emergency Room at [facility] acutely intoxicated. The patient apparently has a lengthy history of polysubstance dependence as well as a lengthy psychiatric history. She reports seeing Dr. Friedman for her medications and most recently has been on Wellbutrin. She states to me that this has not been totally effective. She endorses poor sleep with difficulty falling asleep, sleep continuity disturbance, early childhood teacher assistant awakening, anergia, anhedonia, hopeless, helpless feelings, crying spells and inability to cope. One of her major stressors at this point is the fact that she reports that she is homeless and has no place to go post-discharge. She is not suicidal or homicidal or self-injurious. There is no divya or hypomania and there are no auditory or visual hallucinations. MENTAL STATUS: The patient is alert and oriented with some time gaps. Mood does seem to be depressed with anxious overtones. As mentioned earlier, there is no divya or psychosis. Memory is intact. DIAGNOSIS: Major depression, recurrent; dysthymic disorder; polysubstance dependence. PLAN: I will maintain her Wellbutrin dose at the Wellbutrin-SR 150 twice daily. I will increase her Sinequan from 25 mg at bedtime to 100 at bedtime not only to aid sleep, but to augment the effectiveness of the antidepressant regimen. I have discussed the case with nursing, who will reach out to case management and Police Dispatcher to explore possible housing options. The patient no longer requires any further psychiatric intervention on an inpatient basis and can be discharged to the least restrictive environment when psychiatrically stable. RD PEREZ MD CM:CONSTR:REPORT OF CONSULTATION 1008 02/10/17 191 interface
[~2017-02-08 18:50] MED LIST changes: +LACTULOSE10 GM/151 PO; +NATURE'S BLEND F1 MG PO; +VITAMIN B-1100 M1 PO
[2017-02-08 19:03] VITALS: BP 121/84
[2017-02-08 20:00] VITALS: BP 120/80
[2017-02-08 20:21] LABS: BASO % 0.7 % (0.0-1.0); EOS # 0.1 10*3/uL (0.0-0.4); HEMATOCRIT 34.2 % (37.0-47.0); HEMOGLOBIN 10.7 g/dl (12.0-16.0); LYMPH # 2.4 10*3/uL (1.3-4.4); LYMPH % 39.7 % (27.0-41.0); MEAN CELL VOLUME 99.7 fl (81.0-99.0); MEAN CORPUSCULAR HGB 31.2 pg (27.0-31.0); MEAN CORPUSCULAR HGB CONC 31.3 g/dl (33.0-37.0); MEAN PLATELET VOLUME 9.4 fl (9.6-12.3); MONO # 0.5 10*3/uL (0.1-1.0); MONO % 8.3 % (3.0-9.0); NEUT # 3.1 10*3/uL (2.3-7.9); NEUT % 49.8 % (47.0-73.0); PLATELET COUNT AUTOMATED 201 10*3/uL (130-400); RED BLOOD COUNT 3.43 10*6/uL (4.10-5.10); RED CELL DISTRI WIDTH 19.3 % (0-14.5); WHITE BLOOD COUNT 6.2 10*3/uL (4.8-10.8)
[2017-02-08 20:37] LABS: ALBUMIN 2.8 gm/dl (3.1-4.5); ALKALINE PHOSPHATASE 236 U/L (45-117); BUN 5 mg/dl (7-24); CHLORIDE 122 mmol/L (98-107); CREATININE 0.69 mg/dL (0.55-1.02); SGOT/AST 66 IU/L (3-35); SGPT/ALT 34 U/L (12-78); SODIUM 151 mmol/L (136-145); TOTAL PROTEIN 7.4 gm/dL (6.4-8.2)
[2017-02-08 20:45] LABS: ACETAMINOPHEN (TYLENOL) < 2.0 ug/ml (10-30)
--- NOTE | 2017-02-08 20:48 | NUR ---
LAB CALLED WITH CRITICAL VALUE OF AMMONIA 126 AND ETOH 339.PT TRANSPORTED TO ICCU AT THIS TIME.EBER COLE IN ICCU CONTACTED AND PROVIDED INFORMATION.
[2017-02-08 21:39] LABS: BILIRUBIN NEGATIVE (NEGATIVE); BLOOD TRACE-INTACT (NEGATIVE); CLARITY CLEAR (CLEAR); COLOR YELLOW (YELLOW); GLUCOSE NEGATIVE (NEGATIVE); KETONE NEGATIVE (NEGATIVE); LEUKO ESTERASE TRACE (NEGATIVE); NITRITE NEGATIVE (NEGATIVE); SPECIFIC GRAVITY <= 1.005 (1.005-1.030); UROBILINOGEN 0.2 E.U./dl (0.2-1.0)
[2017-02-08 21:49] LABS: URINE AMPHETAMINES < 1000 (1000ng/ml); URINE BARBITURATES < 200 (200ng/ml); URINE BENZODIAZEPINES > 200 (200ng/ml); URINE CANNABINOIDS (THC) > 50 (50ng/ml); URINE COCAINE < 300 (300ng/ml); URINE METHADONE < 300 (300ng/ml); URINE OPIATES < 300 (300ng/ml)
[2017-02-08 21:50] LABS: URINE PHENCYCLIDINE < 25 (25ng/ml)
[2017-02-08 21:53] LABS: BACTERIA 3+; EPITHELIAL CELLS 30-35; RBC 0-2 rbc/hpf (0-2)
[2017-02-08 22:00] VITALS: BP 119/74
--- NOTE | 2017-02-08 22:00 | NUR ---
A 51, admitted to ICCU, under the services of WILLOW Patterson DO with a diagnosis of SUICIDAL IDEATIONS ALCOHOL INTOXICATION CONTUSION TO THE FACE. Chief complaint is ALCOHOL INTOXICATION. Patient arrived via stretcher from ER. Monitor applied. Initial assessment completed. Vital signs taken and recorded. WILLOW PATTERSON DO notified of admission to the unit. Orders received. See assessment for past medical history, medications and allergies. Patient and/or family oriented to unit. [facility] ICCU visitation policy reviewed. Clothing/patient valuable form completed. ODALIS PATE
[2017-02-09] VITALS: BP 119/75
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
--- NOTE | 2017-02-09 02:13 | NUR ---
PATIENT MOVING BOWELS BOWELS SEVEAL TIMES AT THIS POINT LIQUID AND LARGE AMOUNTS.
[2017-02-09 03:52] LABS: BASO % 0.8 % (0.0-1.0); EOS # 0.1 10*3/uL (0.0-0.4); HEMATOCRIT 35.6 % (37.0-47.0); HEMOGLOBIN 11.1 g/dl (12.0-16.0); LYMPH # 1.5 10*3/uL (1.3-4.4); LYMPH % 39.4 % (27.0-41.0); MEAN CELL VOLUME 100.8 fl (81.0-99.0); MEAN CORPUSCULAR HGB 31.4 pg (27.0-31.0); MEAN CORPUSCULAR HGB CONC 31.2 g/dl (33.0-37.0); MEAN PLATELET VOLUME 9.9 fl (9.6-12.3); MONO # 0.4 10*3/uL (0.1-1.0); MONO % 10.5 % (3.0-9.0); NEUT # 1.8 10*3/uL (2.3-7.9); PLATELET COUNT AUTOMATED 171 10*3/uL (130-400); RED BLOOD COUNT 3.53 10*6/uL (4.10-5.10); RED CELL DISTRI WIDTH 19.3 % (0-14.5); WHITE BLOOD COUNT 3.9 10*3/uL (4.8-10.8)
[2017-02-09 04:00] VITALS: BP 121/75
[2017-02-09 04:05] LABS: BUN 5 mg/dl (7-24); CHLORIDE 115 mmol/L (98-107); CREATININE 0.68 mg/dL (0.55-1.02); POTASSIUM 2.8 mmol/L (3.5-5.1); SODIUM 146 mmol/L (136-145)
[2017-02-09 04:08] LABS: CHOLESTEROL 155 mg/dL (<200); HDL CHOLESTEROL 76 mg/dl (40-60); LDL CHOLESTEROL 50 mg/dL (9-159); PHOSPHOROUS 2.5 mg/dL (2.5-4.9); TRIGLYCERIDES 146 mg/dl (<150); VLDL CHOLESTEROL 29 mg/dL (6-40)
--- NOTE | 2017-02-09 04:29 | NUR ---
CALLED DOCTOR FRANCISCO WITH PATIENT CRITCAL AMMONIA LEVEL OF 131. NO NEW ORDERS AT THIS TIME.
[2017-02-09 08:00] VITALS: BP 109/84
--- NOTE | 2017-02-09 09:13 | NUR ---
NOTIFIED THAT HOME MEDICATIONS WERE UPDATED AND VERIFIED WITH [facility].
--- NOTE | 2017-02-09 09:27 | NUR ---
NOTIFIED OF NEW CONSULT ORDER. STATED HE WILL SEE PATIENT TOMORROW.
--- NOTE | 2017-02-09 09:32 | NUR ---
NOTIFIED OF NEW CONSULT ORDER.
[2017-02-09 10:58] LABS: VITAMIN D, 25-HYDROXY 10.9 ng/mL (30-100)
--- NOTE | 2017-02-09 11:26 | NUR ---
met with client, she is not suicidal, she is perhaps homeless, she cant go to a rescue mission because has no picture ID, i will call [facility] and see if they have any openings in their halfway but they would most likely have to interview her first.
[2017-02-09 12:00] VITALS: BP 153/98
--- NOTE | 2017-02-09 14:06 | NUR ---
Patient buttocks is red and blanchable wound recommendation calazyme since patient is having loose stool due to medications. Patient's left breast has red area noted and is foul smelling would recommend nystation powder. Patient does have several bruises noted to body but stated she didn't want to talk about.
[2017-02-09 16:00] VITALS: BP 149/98
--- NOTE | 2017-02-09 19:43 | NUR ---
SCHEDULED ATIVAN GIVEN.
[2017-02-09 20:00] VITALS: BP 125/79
--- NOTE | 2017-02-09 20:40 | NUR ---
DENIES ANXIETY. NO SIGNS OF DT'S. ATIVAN EFFECTIVE.
--- NOTE | 2017-02-09 20:46 | NUR ---
24 HR chart check completed.
--- NOTE | 2017-02-09 20:48 | NUR ---
PATIENT WANTED BEDTIME PILLS EARLY.
--- NOTE | 2017-02-09 21:40 | NUR ---
Restoril given for c/o insomnia.
--- NOTE | 2017-02-09 22:40 | NUR ---
Patient asleep. No signs of insomnia restoril effective.
[2017-02-10] VITALS: BP 122/70
--- NOTE | 2017-02-10 00:05 | NUR ---
Scheduled ativan given.
--- NOTE | 2017-02-10 01:00 | NUR ---
PATIENT ASLEEP. NO SIGNS OF DT'S OR ANXIETY. ATIVAN EFFECTIVE.
--- NOTE | 2017-02-10 03:28 | NUR ---
SCHEDULED ATIVAN GIVEN.
[2017-02-10 03:58] VITALS: BP 128/78
--- NOTE | 2017-02-10 04:20 | NUR ---
PATIENT ASLEEP. NO SIGNS OF DT'S OR ANXIETY. ATIVAN EFFECTIVE.
[2017-02-10 04:51] LABS: BASO % 0.6 % (0.0-1.0); EOS # 0.1 10*3/uL (0.0-0.4); EOS % 1.9 % (1.0-4.0); HEMATOCRIT 31.1 % (37.0-47.0); LYMPH # 1.2 10*3/uL (1.3-4.4); LYMPH % 36.8 % (27.0-41.0); MEAN CORPUSCULAR HGB 32.2 pg (27.0-31.0); MEAN CORPUSCULAR HGB CONC 32.2 g/dl (33.0-37.0); MEAN PLATELET VOLUME 9.7 fl (9.6-12.3); MONO # 0.4 10*3/uL (0.1-1.0); MONO % 11.4 % (3.0-9.0); NEUT # 1.5 10*3/uL (2.3-7.9); PLATELET COUNT AUTOMATED 149 10*3/uL (130-400); RED BLOOD COUNT 3.11 10*6/uL (4.10-5.10); RED CELL DISTRI WIDTH 18.7 % (0-14.5); WHITE BLOOD COUNT 3.2 10*3/uL (4.8-10.8)
[2017-02-10 05:09] LABS: ALBUMIN 2.5 gm/dl (3.1-4.5); ALKALINE PHOSPHATASE 243 U/L (45-117); BUN 3 mg/dl (7-24); CHLORIDE 109 mmol/L (98-107); CREATININE 0.66 mg/dL (0.55-1.02); MAGNESIUM 1.5 mg/dL (1.5-2.1); POTASSIUM 2.7 mmol/L (3.5-5.1); SGOT/AST 48 IU/L (3-35); SGPT/ALT 28 U/L (12-78); SODIUM 142 mmol/L (136-145); TOTAL PROTEIN 6.7 gm/dL (6.4-8.2)
--- NOTE | 2017-02-10 05:13 | NUR ---
DR. VICK NOTIFIED OF CRITICAL AMMONIA LEVEL. NO NEW ORDERS.
[2017-02-10 08:00] VITALS: BP 115/80
--- NOTE | 2017-02-10 08:58 | NUR ---
pt medicated with ativan 2mg iv at her request for feeling of anxiety.
--- NOTE | 2017-02-10 10:00 | NUR ---
DR PEREZ IN TO SEE PT AND EVALUATED HER. PER DR PEREZ PT IS NO LONGER A RISK TO HERSELF OR OTHERS.
--- NOTE | 2017-02-10 10:15 | NUR ---
PT STATED THE ATIVAN WAS EFFECTIVE IN EASING HER ANXIETY. RESTING IN BED AT THIS TIME.
--- NOTE | 2017-02-10 11:04 | NUR ---
WEAVING TEACHER YUNI SPOKE WITH PT AT THIS TIME AND GAVE HER A LIST OF HOMELESS SHELTERS DUE TO PT STATING SHE IS HOMELESS BECAUSE SHE DOESN'T WANT TO GO BACK TO LIVE WITH HER BOYFRIEND.
--- NOTE | 2017-02-10 11:06 | NUR ---
personal financial planner in to see patient, provided requested longterm list as requested.
[2017-02-10 12:00] VITALS: BP 125/89
--- NOTE | 2017-02-10 12:56 | NUR ---
PT'S CLINICAL LABORATORY SCIENTIST [place] CALLED AND STATED SHE IS GOING TO HAVE A RE[facility] TO SEE PT TOMORROW 9AM TO POSSIBLE HELP WITH HER HOUSING NEEDS ON DISCHARGE.
--- NOTE | 2017-02-10 15:19 | NUR ---
pt medicated with ativan 2mg iv at her request for tremors and anxiety due to etoh withdrawal.
[2017-02-10 16:00] VITALS: BP 120/89
--- NOTE | 2017-02-10 17:00 | NUR ---
PT TRANSFERED TO ROOM 524 VIA WHEELCHAIR AT THIS TIME. REPORT GIVEN TO YIMI VELÁZQUEZ.
--- NOTE | 2017-02-10 17:05 | NUR ---
PT ARRIVE ON FLOOR FROM ICCU BY WHEEL CHAIR. SEE SHIFT ASSESSMENT FOR FURTHER DETAILS.
[2017-02-10 19:56] VITALS: BP 136/82
--- NOTE | 2017-02-10 21:00 | NUR ---
PATIENT WITH CONFUSION/FORGETFULLNESS NOTED. PATIENT UNSTEADY ON HER FEET. LUNGS ARE CLEAR, VITALS WNL.
[2017-02-11] VITALS: BP 114/73
--- NOTE | 2017-02-11 01:52 | NUR ---
24 HR chart check completed.
[2017-02-11 06:13] LABS: BASO % 0.6 % (0.0-1.0); EOS # 0.1 10*3/uL (0.0-0.4); EOS % 2.9 % (1.0-4.0); HEMATOCRIT 30.5 % (37.0-47.0); HEMOGLOBIN 9.5 g/dl (12.0-16.0); LYMPH # 1.2 10*3/uL (1.3-4.4); LYMPH % 37.4 % (27.0-41.0); MEAN CELL VOLUME 99.7 fl (81.0-99.0); MEAN CORPUSCULAR HGB CONC 31.1 g/dl (33.0-37.0); MEAN PLATELET VOLUME 10.2 fl (9.6-12.3); MONO # 0.3 10*3/uL (0.1-1.0); MONO % 10.2 % (3.0-9.0); NEUT # 1.5 10*3/uL (2.3-7.9); NEUT % 48.6 % (47.0-73.0); PLATELET COUNT AUTOMATED 154 10*3/uL (130-400); RED BLOOD COUNT 3.06 10*6/uL (4.10-5.10); RED CELL DISTRI WIDTH 18.2 % (0-14.5); WHITE BLOOD COUNT 3.1 10*3/uL (4.8-10.8)
[2017-02-11 06:35] LABS: BUN 4 mg/dl (7-24); CHLORIDE 112 mmol/L (98-107); CREATININE 0.68 mg/dL (0.55-1.02); MAGNESIUM 1.8 mg/dL (1.5-2.1); POTASSIUM 3.5 mmol/L (3.5-5.1); SODIUM 140 mmol/L (136-145)
[2017-02-11 08:00] VITALS: BP 134/90
[2017-02-11 12:00] VITALS: BP 104/81
--- NOTE | 2017-02-11 13:44 | NUR ---
DR RODRIGUEZ REQUESTS I CHECK TO SEE IF INS WILL PAY FOR RIFAXIMIN. PER BLOOR'S, MED NEEDS PREAUTHED. WHEN I CALLED TO GET MED PREAUTHED, ALEXIA THERE STATES PT HAS NOT HAD LACTULOSE FILLED FAR INSURANCE INFO SHOWS. INFO GIVEN ON NEW MED AND ALEXIA STATES IT CAN TAKE 24 OR MORE HOURS TO GET A DECIDION. DR RODRIGUEZ NOTIFIED.
--- NOTE | 2017-02-11 13:49 | NUR ---
PER PHARMACIST AT [facility], PT HAS BEEN GETTING LACTULOSE FILLED--BUT ITS NAMED GENERLAC AND ITS 10GM....DR RODRIGUEZ NOTIFIED.
--- NOTE | 2017-02-11 14:43 | NUR ---
PO ATIVAN FOR ANXIETY
--- NOTE | 2017-02-11 15:22 | NUR ---
PT ADVISED OF DISCHARGE FROM HOSPITAL TODAY
--- NOTE | 2017-02-11 15:32 | NUR ---
PT DISCHARGED FROM THE HOSPITAL, SPOKE WITH THE HOSPITALIST NURSE AND SHE AND THE DOC ARE AWARE OF PT BEING HOMELESS AND PT IS TO BE DISCHARGED, CHRONIC CONDITION NURSE ALSO AWARE OF PTS SITUATION, HEP LOCK REMOVED, PT REFUSES TO SIGN HER PAPERS
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
== END 2017-02-11 15:40 | disposition home or self-care (01) | DRG 896 ==
LOC: ED 18:50 → EDHOLD 20:18 → 5E 20:18 → ICCU 20:18 → 5E 02-10 16:40
PROVIDERS: Emergency Medicine Emergency Medical Services; Internal Medicine Nephrology; Student in an Organized Health Care Education/Training Program; ADMIT Emergency Medicine
DX: F10.229 Alcohol dependence with intoxication, unspecified (principal); G93.41 Metabolic encephalopathy; E44.0 Moderate protein-calorie malnutrition; E87.0 Hyperosmolality and hypernatremia; I50.32 Chronic diastolic (congestive) heart failure; I11.0 Hypertensive heart disease with heart failure; R45.851 Suicidal ideations; F33.9 Major depressive disorder, recurrent, unspecified; F19.20 Other psychoactive substance dependence, uncomplicated; K72.90 Hepatic failure, unspecified without coma; D53.9 Nutritional anemia, unspecified; R45.850 Homicidal ideations; E87.6 Hypokalemia; R74.0 Nonspecific elevation of levels of transaminase and lactic acid dehydrogenase [LDH]; B19.20 Unspecified viral hepatitis C without hepatic coma; K76.0 Fatty (change of) liver, not elsewhere classified; E87.8 Other disorders of electrolyte and fluid balance, not elsewhere classified; F34.1 Dysthymic disorder; K62.3 Rectal prolapse; E55.9 Vitamin D deficiency, unspecified; F41.9 Anxiety disorder, unspecified; M19.90 Unspecified osteoarthritis, unspecified site; Z87.81 Personal history of (healed) traumatic fracture; Z87.891 Personal history of nicotine dependence; Z82.49 Family history of ischemic heart disease and other diseases of the circulatory system; Z68.24 Body mass index [BMI] 24.0-24.9, adult; Z88.8 Allergy status to other drugs, medicaments and biological substances; Z79.899 Other long term (current) drug therapy; Z82.0 Family history of epilepsy and other diseases of the nervous system

== ENCOUNTER 2017-02-20 19:07 | Inpatient (IN) | payer OTHER ==
[~2017-02-20] VITALS: Ht 162.6 cm; Wt 67.1 kg
[2017-02-20 19:20] VITALS: BP 162/107
[2017-02-20 20:02] LABS: BASO % 0.7 % (0.0-1.0); EOS # 0.1 10*3/uL (0.0-0.4); EOS % 1.4 % (1.0-4.0); HEMATOCRIT 37.1 % (37.0-47.0); HEMOGLOBIN 11.3 g/dl (12.0-16.0); LYMPH # 1.3 10*3/uL (1.3-4.4); LYMPH % 29.1 % (27.0-41.0); MEAN CELL VOLUME 98.9 fl (81.0-99.0); MEAN CORPUSCULAR HGB 30.1 pg (27.0-31.0); MEAN CORPUSCULAR HGB CONC 30.5 g/dl (33.0-37.0); MEAN PLATELET VOLUME 10.1 fl (9.6-12.3); MONO # 0.4 10*3/uL (0.1-1.0); MONO % 9.5 % (3.0-9.0); NEUT # 2.6 10*3/uL (2.3-7.9); NEUT % 59.1 % (47.0-73.0); PLATELET COUNT AUTOMATED 140 10*3/uL (130-400); RED BLOOD COUNT 3.75 10*6/uL (4.10-5.10); RED CELL DISTRI WIDTH 17.4 % (0-14.5); WHITE BLOOD COUNT 4.4 10*3/uL (4.8-10.8)
[2017-02-20 20:19] LABS: ALKALINE PHOSPHATASE 361 U/L (45-117); BUN 3 mg/dl (7-24); CHLORIDE 106 mmol/L (98-107); LIPASE 124 U/L (73-393); MAGNESIUM 1.8 mg/dL (1.5-2.1); POTASSIUM 2.6 mmol/L (3.5-5.1); SGOT/AST 95 IU/L (3-35); SGPT/ALT 49 U/L (12-78); SODIUM 140 mmol/L (136-145); TOTAL PROTEIN 8.1 gm/dL (6.4-8.2)
[2017-02-20 20:21] LABS: TROPONIN I < 0.015 ng/ml (<0.045)
--- NOTE | 2017-02-20 20:23 | NUR ---
NOTIFIED BY LAB OF CRITICAL AMMONIA 110 RUIZ KIRAN NOTIFIED.
[2017-02-20 20:44] LABS: BILIRUBIN 1+ (NEGATIVE); BLOOD NEGATIVE (NEGATIVE); CLARITY CLOUDY (CLEAR); COLOR YELLOW (YELLOW); GLUCOSE NEGATIVE (NEGATIVE); KETONE NEGATIVE (NEGATIVE); LEUKO ESTERASE 1+ (NEGATIVE); NITRITE NEGATIVE (NEGATIVE); PH 6.5 (5.0-9.0); SPECIFIC GRAVITY 1.015 (1.005-1.030)
[2017-02-20 20:51] LABS: BACTERIA 4+
[2017-02-20 20:57] LABS: EPITHELIAL CELLS 21-30
[2017-02-20 20:59] LABS: URINE AMPHETAMINES < 1000 (1000ng/ml); URINE BARBITURATES < 200 (200ng/ml); URINE BENZODIAZEPINES > 200 (200ng/ml); URINE CANNABINOIDS (THC) > 50 (50ng/ml); URINE COCAINE < 300 (300ng/ml); URINE METHADONE < 300 (300ng/ml); URINE OPIATES < 300 (300ng/ml)
[2017-02-20 21:00] LABS: URINE PHENCYCLIDINE < 25 (25ng/ml)
[2017-02-20 21:02] VITALS: BP 160/92
[2017-02-20 22:10] VITALS: BP 151/98
--- NOTE | 2017-02-20 22:10 | NUR ---
A 51, admitted to ICCU, under the services of TIFFANY Peter DO with a diagnosis of ALCOHOL WITHDRAWL HEPATIC ENCEPHALOPATHY. Chief complaint is BODY ACHES AFTER DRINKING LAST NIGHT. Patient arrived via stretcher from ER. Monitor applied. Initial assessment completed. Vital signs taken and recorded. TIFFANY PETER DO notified of admission to the unit. Orders received. See assessment for past medical history, medications and allergies. Patient and/or family oriented to unit. [facility] visitation policy reviewed. Clothing/patient valuable form completed. ODALIS PATE
[2017-02-21 04:00] VITALS: BP 127/85
[2017-02-21 04:44] LABS: BASO % 0.6 % (0.0-1.0); EOS % 1.2 % (1.0-4.0); HEMATOCRIT 31.7 % (37.0-47.0); HEMOGLOBIN 9.8 g/dl (12.0-16.0); LYMPH # 1.2 10*3/uL (1.3-4.4); LYMPH % 34.7 % (27.0-41.0); MEAN CELL VOLUME 98.1 fl (81.0-99.0); MEAN CORPUSCULAR HGB 30.3 pg (27.0-31.0); MEAN CORPUSCULAR HGB CONC 30.9 g/dl (33.0-37.0); MEAN PLATELET VOLUME 10.9 fl (9.6-12.3); MONO # 0.4 10*3/uL (0.1-1.0); MONO % 11.7 % (3.0-9.0); NEUT # 1.7 10*3/uL (2.3-7.9); NEUT % 51.5 % (47.0-73.0); PLATELET COUNT AUTOMATED 128 10*3/uL (130-400); RED BLOOD COUNT 3.23 10*6/uL (4.10-5.10); RED CELL DISTRI WIDTH 17.5 % (0-14.5); WHITE BLOOD COUNT 3.3 10*3/uL (4.8-10.8)
[2017-02-21 05:01] LABS: ALBUMIN 2.5 gm/dl (3.1-4.5); ALKALINE PHOSPHATASE 316 U/L (45-117); BUN 3 mg/dl (7-24); CHLORIDE 111 mmol/L (98-107); CREATININE 0.73 mg/dL (0.55-1.02); MAGNESIUM 1.7 mg/dL (1.5-2.1); PHOSPHOROUS 4.5 mg/dL (2.5-4.9); POTASSIUM 3.2 mmol/L (3.5-5.1); SGOT/AST 76 IU/L (3-35); SGPT/ALT 38 U/L (12-78); SODIUM 142 mmol/L (136-145); TOTAL PROTEIN 6.8 gm/dL (6.4-8.2)
--- NOTE | 2017-02-21 05:48 | NUR ---
CALLED DOCTOR AGUIRRE WITH PATIENTS POTASSIUM LEVEL NEW ORDRES GIVEN.
--- NOTE | 2017-02-21 06:14 | NUR ---
PATIENT HAD LOOSE STOOLS THROUGH OUT THE NIGHT. PATIENT UP TO BED SIDE WITH NO COMPLAINTS. PATIENT DENIES ANY PAIN AT THIS TIME.
--- NOTE | 2017-02-21 06:48 | NUR ---
CALLED DOCTOR AGUIRRE WITH PATIENTS AMMONIA LEVEL OF 89. NO NEW ORDRES AT THIS TIME.
[2017-02-21 07:59] VITALS: BP 123/79
--- NOTE | 2017-02-21 13:28 | NUR ---
TRANSFERRED TO [facility] WITH BELONGINGS
--- NOTE | 2017-02-21 15:51 | NUR ---
SPOKE WITH DR. MALONE..OK TO GIVE WELLBUTRIN NOW. ORDER IS BID, FIRST DOSE WAS GIVEN AT 0925.
[2017-02-21 16:00] VITALS: BP 150/98
--- NOTE | 2017-02-21 17:15 | NUR ---
ROBAXIN GIVEN FOR C/O GENERALIZED MUSCLE ACHES. WILL MONITOR.
[2017-02-21 20:01] VITALS: BP 133/84
[2017-02-22] VITALS: BP 129/74
--- NOTE | 2017-02-22 02:00 | NUR ---
Patient sleeping. Respirations easy and regular. Vital signs stable. No overt distress. JEFF MARIEE
[2017-02-22 05:54] LABS: BUN 4 mg/dl (7-24); CHLORIDE 110 mmol/L (98-107); CREATININE 0.77 mg/dL (0.55-1.02); SODIUM 139 mmol/L (136-145)
[2017-02-22 06:12] LABS: BASO % 0.6 % (0.0-1.0); EOS # 0.1 10*3/uL (0.0-0.4); EOS % 1.7 % (1.0-4.0); HEMOGLOBIN 10.4 g/dl (12.0-16.0); LYMPH # 1.3 10*3/uL (1.3-4.4); LYMPH % 37.4 % (27.0-41.0); MEAN CELL VOLUME 99.4 fl (81.0-99.0); MEAN CORPUSCULAR HGB 30.4 pg (27.0-31.0); MEAN CORPUSCULAR HGB CONC 30.6 g/dl (33.0-37.0); MEAN PLATELET VOLUME 10.7 fl (9.6-12.3); MONO # 0.3 10*3/uL (0.1-1.0); MONO % 9.3 % (3.0-9.0); NEUT # 1.8 10*3/uL (2.3-7.9); PLATELET COUNT AUTOMATED 117 10*3/uL (130-400); RED BLOOD COUNT 3.42 10*6/uL (4.10-5.10); RED CELL DISTRI WIDTH 17.4 % (0-14.5); WHITE BLOOD COUNT 3.5 10*3/uL (4.8-10.8)
--- NOTE | 2017-02-22 06:14 | NUR ---
DR AGUIRRE NOTIFIED OF CRITICAL AMMONIA LEVEL CALLED BY LAB.
[2017-02-22 08:00] VITALS: BP 125/77
--- NOTE | 2017-02-22 09:00 | NUR ---
PT AWAKE. ASSESSMENT COMPLETE. ADMINISTERED PO ROBAXIN PER PT REQUEST FOR MUSCLE ACHES RATED 5/10 ON PAIN SCALE. WILL MONITOR FOR EFFECTIVENESS. BED LOW. CALL OLIVAREZ IN REACH
--- NOTE | 2017-02-22 09:14 | NUR ---
Nina Tapia, physical therapist notified me that this patient would like to be in the 3 day program for detox. I notified Sheron Durham who stated she will be up to discuss with patient.
--- NOTE | 2017-02-22 09:55 | NUR ---
client is not voicing any present suicidal ideation.
--- NOTE | 2017-02-22 10:00 | NUR ---
PER PATIENT. MEDICATION EFFECTIVE. PT RESTING COMFORTABLY
--- NOTE | 2017-02-22 12:00 | NUR ---
PHYSICAL THERAPY Physical Therapy Evaluation completed this date. See eval document for further details. Will begin PT intervention to address the impairments of muscle weakness, decreased functional mobility I, and difficulty ambulating. Recommend d/c to [facility]/SNF [place] [address] based on chart review and PT eval. Nina Tapia, PT
[2017-02-22] MEDS ORDERED: CIPRO500 MG PO (13:47)
--- NOTE | 2017-02-22 17:36 | NUR ---
Discharge instructions reviewed with patient/family. Patient receptive and verbalizes understanding. Follow-up care arranged. Written instructions given to patient/family. RACHEL ALLISON
== END 2017-02-22 17:36 | disposition home or self-care (01) | DRG 441 ==
LOC: ED 19:07 → 4E 20:30 → EDHOLD 20:30 → ICCU 20:30 → 4E 02-21 13:14
PROVIDERS: Family Medicine; Hospitalist; Physician Assistant; ADMIT Internal Medicine
DX: K72.90 Hepatic failure, unspecified without coma (principal); E43 Unspecified severe protein-calorie malnutrition; D69.6 Thrombocytopenia, unspecified; I50.32 Chronic diastolic (congestive) heart failure; F10.239 Alcohol dependence with withdrawal, unspecified; N39.0 Urinary tract infection, site not specified; I11.0 Hypertensive heart disease with heart failure; E87.6 Hypokalemia; F31.9 Bipolar disorder, unspecified; B19.20 Unspecified viral hepatitis C without hepatic coma; K62.3 Rectal prolapse; G62.9 Polyneuropathy, unspecified; D64.9 Anemia, unspecified; F12.10 Cannabis abuse, uncomplicated; Z96.698 Presence of other orthopedic joint implants; M19.039 Primary osteoarthritis, unspecified wrist; K76.0 Fatty (change of) liver, not elsewhere classified; E55.9 Vitamin D deficiency, unspecified; K21.9 Gastro-esophageal reflux disease without esophagitis; Z88.8 Allergy status to other drugs, medicaments and biological substances; Z79.899 Other long term (current) drug therapy; Z87.891 Personal history of nicotine dependence; Z82.49 Family history of ischemic heart disease and other diseases of the circulatory system; Z81.8 Family history of other mental and behavioral disorders; Z68.25 Body mass index [BMI] 25.0-25.9, adult

== ENCOUNTER 2017-05-05 08:05 | Inpatient (IN) | payer OTHER ==
[~2017-05-05] VITALS: Ht 163 cm; Wt 66.8 kg
[~2017-05-05 08:05] MED LIST changes: +CIPRO500 MG PO
[2017-05-05 08:11] VITALS: BP 107/76
[2017-05-05 08:39] LABS: BASO % 0.4 % (0.0-1.0); EOS # 0.1 10*3/uL (0.0-0.4); EOS % 0.7 % (1.0-4.0); HEMATOCRIT 37.1 % (37.0-47.0); HEMOGLOBIN 12.4 g/dl (12.0-16.0); LYMPH # 1.4 10*3/uL (1.3-4.4); LYMPH % 15.4 % (27.0-41.0); MEAN CELL VOLUME 91.8 fl (81.0-99.0); MEAN CORPUSCULAR HGB 30.7 pg (27.0-31.0); MEAN CORPUSCULAR HGB CONC 33.4 g/dl (33.0-37.0); MEAN PLATELET VOLUME 10.7 fl (9.6-12.3); MONO % 10.6 % (3.0-9.0); NEUT # 6.5 10*3/uL (2.3-7.9); NEUT % 72.5 % (47.0-73.0); NUCLEATED RED BLOOD CELL 0.4 % (0.0-0.0); PLATELET COUNT AUTOMATED 162 10*3/uL (130-400); RED BLOOD COUNT 4.04 10*6/uL (4.10-5.10); RED CELL DISTRI WIDTH 21.9 % (0-14.5)
[2017-05-05 08:50] LABS: ACT PARTIAL THROMBO TIME 28.7 SECONDS (19.5-32.1); INTERNATIONAL NORM RATIO 1.1 (2.0-3.5)
[2017-05-05 08:53] LABS: ALBUMIN 2.9 gm/dl (3.1-4.5); CREATININE 1.53 mg/dL (0.55-1.02); TOTAL PROTEIN 7.6 gm/dL (6.4-8.2)
[2017-05-05 08:55] LABS: POTASSIUM 1.6 mmol/L (3.5-5.1)
[2017-05-05 09:01] LABS: THYROID STIM HORMONE (HS) 2.41 uIU/ml (0.358-4.75)
[2017-05-05 09:10] VITALS: BP 110/78
[2017-05-05 09:27] LABS: LIPASE 2751 U/L (73-393); TROPONIN I < 0.015 ng/ml (<0.045)
[2017-05-05 09:50] VITALS: BP 111/79
[2017-05-05 12:00] VITALS: BP 111/69
[2017-05-05 13:24] LABS: BILIRUBIN NEGATIVE (NEGATIVE); BLOOD 3+ (NEGATIVE); CLARITY SL CLOUDY (CLEAR); COLOR YELLOW (YELLOW); GLUCOSE NEGATIVE (NEGATIVE); KETONE NEGATIVE (NEGATIVE); LEUKO ESTERASE 3+ (NEGATIVE); NITRITE NEGATIVE (NEGATIVE); SPECIFIC GRAVITY <= 1.005 (1.005-1.030)
[2017-05-05 13:31] LABS: BACTERIA 4+; RBC 31-40 rbc/hpf (0-2); URINE AMPHETAMINES < 1000 (1000ng/ml); URINE BARBITURATES < 200 (200ng/ml); URINE BENZODIAZEPINES > 200 (200ng/ml); URINE CANNABINOIDS (THC) < 50 (50ng/ml); URINE COCAINE < 300 (300ng/ml); URINE METHADONE < 300 (300ng/ml); URINE OPIATES < 300 (300ng/ml); WBC 31-40 wbc/hpf (0-5)
[2017-05-05 13:34] LABS: URINE PHENCYCLIDINE < 25 (25ng/ml)
[2017-05-05 15:04] LABS: CREATININE 1.51 mg/dL (0.55-1.02)
[2017-05-05 15:09] LABS: POTASSIUM 1.6 mmol/L (3.5-5.1)
[2017-05-05 16:00] VITALS: BP 90/63
[2017-05-05 19:11] LABS: CREATININE 1.4 mg/dL (0.55-1.02)
[2017-05-05 19:16] LABS: POTASSIUM 1.7 mmol/L (3.5-5.1)
[2017-05-05 20:00] VITALS: BP 111/59
[2017-05-06] VITALS: BP 114/67
[2017-05-06 03:59] VITALS: BP 120/76
[2017-05-06 05:35] LABS: ALBUMIN 2.5 gm/dl (3.1-4.5); CREATININE 1.34 mg/dL (0.55-1.02); PHOSPHOROUS 1.9 mg/dL (2.5-4.9)
[2017-05-06 05:44] LABS: FREE T4 0.95 ng/dl (0.76-1.46); THYROID STIM HORMONE (HS) 6.82 uIU/ml (0.358-4.75); TOTAL PROTEIN 6.4 gm/dL (6.4-8.2)
[2017-05-06 05:46] LABS: POTASSIUM 1.9 mmol/L (3.5-5.1)
[2017-05-06 06:23] LABS: BASO % 0.4 % (0.0-1.0); EOS # 0.1 10*3/uL (0.0-0.4); LYMPH # 1.2 10*3/uL (1.3-4.4); LYMPH % 17.5 % (27.0-41.0); MEAN CORPUSCULAR HGB 31.5 pg (27.0-31.0); MEAN CORPUSCULAR HGB CONC 33.1 g/dl (33.0-37.0); MEAN PLATELET VOLUME 10.9 fl (9.6-12.3); MONO # 0.9 10*3/uL (0.1-1.0); MONO % 13.6 % (3.0-9.0); NEUT # 4.6 10*3/uL (2.3-7.9); NEUT % 66.9 % (47.0-73.0); NUCLEATED RED BLOOD CELL 0.1 10*3/uL (0.0-0.0); NUCLEATED RED BLOOD CELL 0.7 % (0.0-0.0); RED BLOOD COUNT 3.21 10*6/uL (4.10-5.10); RED CELL DISTRI WIDTH 22.4 % (0-14.5); WHITE BLOOD COUNT 6.9 10*3/uL (4.8-10.8)
[2017-05-06 06:25] LABS: HEMATOCRIT 30.5 % (37.0-47.0); HEMOGLOBIN 10.1 g/dl (12.0-16.0); PLATELET COUNT AUTOMATED 108 10*3/uL (130-400)
[2017-05-06 08:00] VITALS: BP 112/66
[2017-05-06 08:31] LABS: VITAMIN D, 25-HYDROXY 8.8 ng/mL (30-100)
[2017-05-06 12:00] VITALS: BP 127/82
[2017-05-06 14:22] LABS: CREATININE 1.44 mg/dL (0.55-1.02)
[2017-05-06 14:27] LABS: POTASSIUM 2.4 mmol/L (3.5-5.1)
[2017-05-06 16:00] VITALS: BP 98/63
[2017-05-06 20:00] VITALS: BP 118/79
[2017-05-07] VITALS: BP 96/60
[2017-05-07 04:00] VITALS: BP 104/72
[2017-05-07 05:29] LABS: ALBUMIN 2.6 gm/dl (3.1-4.5); ALKALINE PHOSPHATASE 266 U/L (45-117); BUN 7 mg/dl (7-24); CHLORIDE 104 mmol/L (98-107); CREATININE 1.01 mg/dL (0.55-1.02); SGOT/AST 114 IU/L (3-35); SGPT/ALT 41 U/L (12-78); SODIUM 132 mmol/L (136-145); TOTAL PROTEIN 6.3 gm/dL (6.4-8.2)
[2017-05-07 05:33] LABS: POTASSIUM 3.5 mmol/L (3.5-5.1)
[2017-05-07 05:35] LABS: LIPASE 2141 U/L (73-393); PHOSPHOROUS 0.6 mg/dL (2.5-4.9)
[2017-05-07 06:11] LABS: HEMATOCRIT 30.6 % (37.0-47.0); HEMOGLOBIN 9.7 g/dl (12.0-16.0); MEAN CELL VOLUME 97.1 fl (81.0-99.0); MEAN CORPUSCULAR HGB 30.8 pg (27.0-31.0); MEAN CORPUSCULAR HGB CONC 31.7 g/dl (33.0-37.0); MEAN PLATELET VOLUME 10.4 fl (9.6-12.3); NUCLEATED RED BLOOD CELL 0.1 10*3/uL (0.0-0.0); NUCLEATED RED BLOOD CELL 1.3 % (0.0-0.0); PLATELET COUNT AUTOMATED 108 10*3/uL (130-400); RED BLOOD COUNT 3.15 10*6/uL (4.10-5.10); RED CELL DISTRI WIDTH 23.2 % (0-14.5)
[2017-05-07 07:06] LABS: ATYPICAL LYMPHS 1 % (0-0); PLATELET SUFFICIENCY LOW (NORMAL); TOTAL CELLS COUNTED 100 #CELLS
[2017-05-07 08:00] VITALS: BP 101/65
[2017-05-07 12:00] VITALS: BP 101/55
[2017-05-07 16:00] VITALS: BP 117/69
[2017-05-07 20:00] VITALS: BP 100/65
== END 2017-05-07 21:51 | disposition left against medical advice (07) | DRG 438 ==
LOC: ED 08:05 → EDHOLD 09:06 → ICCU 09:06
PROVIDERS: Emergency Medicine; Family Medicine; Internal Medicine Nephrology; Student in an Organized Health Care Education/Training Program
PROC: 02H633Z Insertion of Infusion Device into Right Atrium, Percutaneous Approach (ICD-10-PCS; principal; 2017-05-05)
PROC: B244ZZZ Ultrasonography of Right Heart (ICD-10-PCS; 2017-05-05)
DX: K85.20 Alcohol induced acute pancreatitis without necrosis or infection (principal); N17.0 Acute kidney failure with tubular necrosis; F10.230 Alcohol dependence with withdrawal, uncomplicated; E44.0 Moderate protein-calorie malnutrition; I50.32 Chronic diastolic (congestive) heart failure; N30.00 Acute cystitis without hematuria; E87.1 Hypo-osmolality and hyponatremia; E87.6 Hypokalemia; K76.0 Fatty (change of) liver, not elsewhere classified; K21.9 Gastro-esophageal reflux disease without esophagitis; F12.10 Cannabis abuse, uncomplicated; M19.90 Unspecified osteoarthritis, unspecified site; M79.2 Neuralgia and neuritis, unspecified; F31.9 Bipolar disorder, unspecified; Z53.21 Procedure and treatment not carried out due to patient leaving prior to being seen by health care provider; R73.9 Hyperglycemia, unspecified; Z96.698 Presence of other orthopedic joint implants; B18.2 Chronic viral hepatitis C; E55.9 Vitamin D deficiency, unspecified; Z88.8 Allergy status to other drugs, medicaments and biological substances; Z79.2 Long term (current) use of antibiotics; Z79.899 Other long term (current) drug therapy; Z87.891 Personal history of nicotine dependence; Z82.49 Family history of ischemic heart disease and other diseases of the circulatory system; Z81.8 Family history of other mental and behavioral disorders; Z68.25 Body mass index [BMI] 25.0-25.9, adult

== ENCOUNTER 2017-05-13 03:31 | Inpatient (IN) | payer OTHER ==
[2017-05-13] VITALS (8 sets, daily range): BP systolic 108–160; BP diastolic 69–109
[~2017-05-13] VITALS: Ht 165.1 cm; Wt 76.7 kg
--- NOTE | ~2017-05-13 | PR ---
[place], [place] PROGRESS NOTE NAME: ENEIDA LORENZ [facility] #: [id number] UNIT #: [id number] ROOM: 528 DOCTOR: ARCHANA NGUYEN MD BIRTHDATE: [birth year] DOS: 05/16/2017 SUBJECTIVE: The patient was seen and examined. She is awake and alert. She denies any acute distress. She denies shortness of breath. She does complain of some abdominal distention. PHYSICAL EXAMINATION: VITAL SIGNS: Temperature is 97.9, pulse 100, respiration 20, blood pressure 114/80. HEENT: Shows no JVD. LUNGS: Clear. HEART: Normal S1, S2. No rub, thrill or gallop. ABDOMEN: Soft, however, distended, but nontender. I could not appreciate organomegaly. EXTREMITIES: Had no edema. SKIN: Showed no rash. LABORATORY DATA: Hemoglobin 8.9, white count is 7.5. Sodium 130, potassium 3.7, CO2 15, BUN 3, creatinine 0.8, magnesium 1.7, phosphorus is 3.4. ASSESSMENT AND PLAN: 1. Hypokalemia. This appears to have been resolved. Continue to supplement as needed. 2. Metabolic acidosis. The etiology is not clear, would consider sodium bicarbonate tablets. Would repeat lactic acid level. 3. Abdominal distention. Workup as per the primary service. 4. Anemia. Follow H and H. Transfuse as needed. ARCHANA NGUYEN MD CM:PNTRANS 1606 26 ARCHANA NGUYEN MD 05/16/172225 interface
--- NOTE | ~2017-05-13 | CON ---
[place], [place] REPORT OF CONSULTATION NAME: ENEIDA LORENZ UNIT #: [id number] ROOM: 528 DOCTOR: REBECA YOUNG MD BIRTHDATE: [birth year] DOS: 05/18/2017 HISTORY OF PRESENT ILLNESS: A 51-year-old who is known to the service with recurrent alcohol admission with an increased abdominal girth, abdominal pain. PAST MEDICAL HISTORY: Hepatitis C and suspected for ascites and fatty liver, essential hypertension, suspected for portal hypertension, bipolar disorder, osteoporosis. PAST SURGICAL HISTORY: Minor operations. SOCIAL HISTORY: Smoker and alcohol consumer to the level of abuse. FAMILY HISTORY: Noncontributory. ALLERGIES: ____ NOTICED. MEDICATIONS: At home noticed. REVIEW OF SYSTEMS: HEENT: Denies double vision, blurred vision. RESPIRATORY: Denies acute shortness of breath. CARDIOVASCULAR: Denies chest pain. DIGESTIVE SYSTEM: Increased abdominal girth and hyperammonemia. PHYSICAL EXAMINATION: VITAL SIGNS: Stable. HEENT: Benign. NECK: Supple, no thyromegaly, no cervical lymphadenopathy. CHEST: Symmetric anatomy, equal expansion. No wheeze, no rhonchi. HEART: Normal sinus rhythm, no gallop, no murmur. ABDOMEN: Protruding distended, obese. Bowel sounds present, suspected for ascites. EXTREMITIES: 2+ pedal edema. NEUROLOGIC: Alert, oriented. IMPRESSION: Alcohol dependency fatty steatosis of the liver. LABORATORY DATA: Reviewed. Records reviewed. Sonogram of the abdomen today did not show much fluid to be removed through paracentesis. Serum ammonia was 105. Her INR was benign. Lab results LFTs abnormal, lipase 700+ today. PLAN AND DISCUSSION: Continuation with lactulose, addition of Xifaxan 550 mg b.i.d. and clinical reassessment. Serum ammonia is going to be periodically checked. [place], [place] REPORT OF CONSULTATION NAME: LORENZENEIDA UNIT #: [id number] ROOM: 528 DOCTOR: REBECA YOUNG MD BIRTHDATE: [birth year] REBECA YOUNG MD CM:CONSTR:REPORT OF CONSULTATION 41 05/19/17 0333 interface
[2017-05-13 04:38] LABS: BASO % 0.5 % (0.0-1.0); EOS # 0.1 10*3/uL (0.0-0.4); EOS % 0.8 % (1.0-4.0); HEMATOCRIT 32.8 % (37.0-47.0); HEMOGLOBIN 10.3 g/dl (12.0-16.0); LYMPH # 1.7 10*3/uL (1.3-4.4); LYMPH % 22.4 % (27.0-41.0); MEAN CELL VOLUME 100.9 fl (81.0-99.0); MEAN CORPUSCULAR HGB 31.7 pg (27.0-31.0); MEAN CORPUSCULAR HGB CONC 31.4 g/dl (33.0-37.0); MEAN PLATELET VOLUME 10.1 fl (9.6-12.3); MONO # 0.9 10*3/uL (0.1-1.0); MONO % 11.2 % (3.0-9.0); NEUT # 4.8 10*3/uL (2.3-7.9); NEUT % 63.8 % (47.0-73.0); NUCLEATED RED BLOOD CELL 0.1 10*3/uL (0.0-0.0); NUCLEATED RED BLOOD CELL 0.7 % (0.0-0.0); PLATELET COUNT AUTOMATED 161 10*3/uL (130-400); RED BLOOD COUNT 3.25 10*6/uL (4.10-5.10); RED CELL DISTRI WIDTH 23.4 % (0-14.5); WHITE BLOOD COUNT 7.6 10*3/uL (4.8-10.8)
[2017-05-13 04:58] LABS: ALBUMIN 2.6 gm/dl (3.1-4.5); ALKALINE PHOSPHATASE 256 U/L (45-117); BUN 2 mg/dl (7-24); CHLORIDE 106 mmol/L (98-107); CREATININE 0.83 mg/dL (0.55-1.02); LIPASE 604 U/L (73-393); SGOT/AST 81 IU/L (3-35); SGPT/ALT 41 U/L (12-78); SODIUM 135 mmol/L (136-145); TOTAL PROTEIN 7.2 gm/dL (6.4-8.2)
[2017-05-13 05:08] LABS: ETHYL ALCOHOL < 3.0 mg/dl (<3); POTASSIUM 2.3 mmol/L (3.5-5.1); TROPONIN I < 0.015 ng/ml (<0.045)
[2017-05-13] MEDS ORDERED: BUPROPION HCL150 M1 PO (08:09)
[2017-05-13] MEDS ORDERED: DIAZEPAM10 M1 PO (08:10)
[2017-05-13] MEDS ORDERED: NEURONTIN300 MG PO (08:11)
[2017-05-13] MEDS ORDERED: ADVIL200 M1 PO (08:12)
[2017-05-13 12:42] LABS: BUN 3 mg/dl (7-24); CHLORIDE 107 mmol/L (98-107); CREATININE 0.92 mg/dL (0.55-1.02); SODIUM 137 mmol/L (136-145)
[2017-05-13 12:46] LABS: POTASSIUM 2.3 mmol/L (3.5-5.1)
[2017-05-13 14:04] LABS: BILIRUBIN NEGATIVE (NEGATIVE); BLOOD 1+ (NEGATIVE); CLARITY CLOUDY (CLEAR); COLOR YELLOW (YELLOW); GLUCOSE NEGATIVE (NEGATIVE); KETONE NEGATIVE (NEGATIVE); LEUKO ESTERASE 3+ (NEGATIVE); NITRITE NEGATIVE (NEGATIVE)
[2017-05-13 14:22] LABS: WBC TNTC wbc/hpf (0-5)
[2017-05-13] MEDS ORDERED: WELLBUTRIN SR150 MG PO ×2 (14:36)
[2017-05-13] MEDS ORDERED: DOXEPIN25 MG PO (14:38)
[2017-05-14] VITALS: BP 108/58
[2017-05-14 06:51] LABS: BASO # 0.1 10*3/uL (0.0-0.1); BASO % 0.7 % (0.0-1.0); EOS # 0.1 10*3/uL (0.0-0.4); EOS % 1.2 % (1.0-4.0); HEMATOCRIT 28.3 % (37.0-47.0); HEMOGLOBIN 8.8 g/dl (12.0-16.0); LYMPH # 1.9 10*3/uL (1.3-4.4); LYMPH % 27.8 % (27.0-41.0); MEAN CELL VOLUME 103.7 fl (81.0-99.0); MEAN CORPUSCULAR HGB 32.2 pg (27.0-31.0); MEAN CORPUSCULAR HGB CONC 31.1 g/dl (33.0-37.0); MEAN PLATELET VOLUME 10.2 fl (9.6-12.3); MONO # 0.7 10*3/uL (0.1-1.0); MONO % 10.1 % (3.0-9.0); NEUT % 58.9 % (47.0-73.0); NUCLEATED RED BLOOD CELL 0.4 % (0.0-0.0); PLATELET COUNT AUTOMATED 148 10*3/uL (130-400); RED BLOOD COUNT 2.73 10*6/uL (4.10-5.10); RED CELL DISTRI WIDTH 23.1 % (0-14.5); WHITE BLOOD COUNT 6.8 10*3/uL (4.8-10.8)
[2017-05-14 07:35] LABS: ALBUMIN 2.3 gm/dl (3.1-4.5); ALKALINE PHOSPHATASE 204 U/L (45-117); BUN 2 mg/dl (7-24); CHLORIDE 110 mmol/L (98-107); CREATININE 0.77 mg/dL (0.55-1.02); SGOT/AST 69 IU/L (3-35); SGPT/ALT 34 U/L (12-78); SODIUM 139 mmol/L (136-145); TOTAL PROTEIN 6.2 gm/dL (6.4-8.2)
[2017-05-14 07:45] LABS: POTASSIUM 3.2 mmol/L (3.5-5.1)
[2017-05-14 08:00] VITALS: BP 114/84
[2017-05-14 12:00] VITALS: BP 135/98; BP 141/99
[2017-05-14 12:31] LABS: ABG HCO3 13.6 mmol/l (22-26); ABG O2 SATURATION 99.3 % (95-97); ARTERIAL BLOOD GAS PCO2 24.1 mmHg (35-45); ARTERIAL BLOOD GAS PH 7.368 (7.35-7.45)
[2017-05-14 12:32] LABS: ABG BASE EXCESS -10.3 mmol/L (-2.0-2.0)
[2017-05-14 16:00] VITALS: BP 121/61
[2017-05-14 20:00] VITALS: BP 125/76
[2017-05-15] VITALS: BP 105/60
[2017-05-15 06:49] LABS: BASO % 0.6 % (0.0-1.0); EOS # 0.1 10*3/uL (0.0-0.4); EOS % 1.1 % (1.0-4.0); HEMATOCRIT 25.8 % (37.0-47.0); HEMOGLOBIN 8.1 g/dl (12.0-16.0); LYMPH # 1.5 10*3/uL (1.3-4.4); LYMPH % 28.9 % (27.0-41.0); MEAN CELL VOLUME 104.5 fl (81.0-99.0); MEAN CORPUSCULAR HGB 32.8 pg (27.0-31.0); MEAN CORPUSCULAR HGB CONC 31.4 g/dl (33.0-37.0); MEAN PLATELET VOLUME 10.4 fl (9.6-12.3); MONO # 0.5 10*3/uL (0.1-1.0); MONO % 8.7 % (3.0-9.0); NEUT # 3.2 10*3/uL (2.3-7.9); NEUT % 59.8 % (47.0-73.0); NUCLEATED RED BLOOD CELL 0.4 % (0.0-0.0); PLATELET COUNT AUTOMATED 150 10*3/uL (130-400); RED BLOOD COUNT 2.47 10*6/uL (4.10-5.10); RED CELL DISTRI WIDTH 22.7 % (0-14.5); WHITE BLOOD COUNT 5.3 10*3/uL (4.8-10.8)
[2017-05-15 06:57] LABS: ALBUMIN 2.3 gm/dl (3.1-4.5); BUN 3 mg/dl (7-24); CHLORIDE 111 mmol/L (98-107); CREATININE 0.76 mg/dL (0.55-1.02); POTASSIUM 2.9 mmol/L (3.5-5.1); SODIUM 138 mmol/L (136-145)
[2017-05-15 08:00] VITALS: BP 114/73
[2017-05-15 12:00] VITALS: BP 135/93
[2017-05-15 16:00] VITALS: BP 90/66
[2017-05-15 20:00] VITALS: BP 126/91
[2017-05-16] VITALS: BP 112/76
[2017-05-16 06:41] LABS: BASO # 0.1 10*3/uL (0.0-0.1); BASO % 0.8 % (0.0-1.0); EOS # 0.1 10*3/uL (0.0-0.4); EOS % 0.9 % (1.0-4.0); HEMATOCRIT 29.6 % (37.0-47.0); HEMOGLOBIN 8.9 g/dl (12.0-16.0); LYMPH # 1.8 10*3/uL (1.3-4.4); LYMPH % 24.6 % (27.0-41.0); MEAN CELL VOLUME 105.3 fl (81.0-99.0); MEAN CORPUSCULAR HGB 31.7 pg (27.0-31.0); MEAN CORPUSCULAR HGB CONC 30.1 g/dl (33.0-37.0); MEAN PLATELET VOLUME 10.2 fl (9.6-12.3); MONO # 0.5 10*3/uL (0.1-1.0); MONO % 6.7 % (3.0-9.0); NEUT # 4.9 10*3/uL (2.3-7.9); NEUT % 66.2 % (47.0-73.0); PLATELET COUNT AUTOMATED 191 10*3/uL (130-400); RED BLOOD COUNT 2.81 10*6/uL (4.10-5.10); RED CELL DISTRI WIDTH 22.5 % (0-14.5); WHITE BLOOD COUNT 7.5 10*3/uL (4.8-10.8)
[2017-05-16 06:56] LABS: ALBUMIN 2.4 gm/dl (3.1-4.5); ALKALINE PHOSPHATASE 205 U/L (45-117); BUN 3 mg/dl (7-24); CHLORIDE 111 mmol/L (98-107); CREATININE 0.83 mg/dL (0.55-1.02); PHOSPHOROUS 3.4 mg/dL (2.5-4.9); POTASSIUM 3.7 mmol/L (3.5-5.1); SGOT/AST 53 IU/L (3-35); SGPT/ALT 31 U/L (12-78); SODIUM 138 mmol/L (136-145); TOTAL PROTEIN 6.4 gm/dL (6.4-8.2)
[2017-05-16 08:00] VITALS: BP 112/72
[2017-05-16 12:00] VITALS: BP 114/80
[2017-05-16 16:00] VITALS: BP 118/78
[2017-05-16 20:00] VITALS: BP 119/90
[2017-05-17] VITALS: BP 106/75
[2017-05-17 07:48] LABS: BASO % 0.8 % (0.0-1.0); EOS % 0.6 % (1.0-4.0); HEMOGLOBIN 8.3 g/dl (12.0-16.0); LYMPH # 1.3 10*3/uL (1.3-4.4); LYMPH % 24.2 % (27.0-41.0); MEAN CELL VOLUME 103.4 fl (81.0-99.0); MEAN CORPUSCULAR HGB 31.8 pg (27.0-31.0); MEAN CORPUSCULAR HGB CONC 30.7 g/dl (33.0-37.0); MEAN PLATELET VOLUME 9.7 fl (9.6-12.3); MONO # 0.4 10*3/uL (0.1-1.0); MONO % 6.8 % (3.0-9.0); NEUT # 3.6 10*3/uL (2.3-7.9); PLATELET COUNT AUTOMATED 151 10*3/uL (130-400); RED BLOOD COUNT 2.61 10*6/uL (4.10-5.10); WHITE BLOOD COUNT 5.3 10*3/uL (4.8-10.8)
[2017-05-17 08:00] VITALS: BP 120/80
[2017-05-17 08:02] LABS: ALBUMIN 2.2 gm/dl (3.1-4.5); ALKALINE PHOSPHATASE 169 U/L (45-117); BUN 2 mg/dl (7-24); CHLORIDE 109 mmol/L (98-107); CREATININE 0.67 mg/dL (0.55-1.02); LIPASE 543 U/L (73-393); SGOT/AST 48 IU/L (3-35); SGPT/ALT 26 U/L (12-78); SODIUM 138 mmol/L (136-145)
[2017-05-17 12:00] VITALS: BP 143/90
[2017-05-17 16:00] VITALS: BP 133/90
[2017-05-17 20:00] VITALS: BP 115/83
[2017-05-18] VITALS: BP 118/83
[2017-05-18 08:00] VITALS: BP 112/90
[2017-05-18 08:16] LABS: BASO % 0.7 % (0.0-1.0); EOS # 0.1 10*3/uL (0.0-0.4); EOS % 1.1 % (1.0-4.0); HEMATOCRIT 28.8 % (37.0-47.0); HEMOGLOBIN 8.7 g/dl (12.0-16.0); LYMPH # 1.4 10*3/uL (1.3-4.4); LYMPH % 26.4 % (27.0-41.0); MEAN CELL VOLUME 104.3 fl (81.0-99.0); MEAN CORPUSCULAR HGB 31.5 pg (27.0-31.0); MEAN CORPUSCULAR HGB CONC 30.2 g/dl (33.0-37.0); MONO # 0.5 10*3/uL (0.1-1.0); NEUT # 3.3 10*3/uL (2.3-7.9); NEUT % 61.1 % (47.0-73.0); PLATELET COUNT AUTOMATED 164 10*3/uL (130-400); RED BLOOD COUNT 2.76 10*6/uL (4.10-5.10); RED CELL DISTRI WIDTH 21.8 % (0-14.5); WHITE BLOOD COUNT 5.4 10*3/uL (4.8-10.8)
[2017-05-18 08:28] LABS: ALBUMIN 2.2 gm/dl (3.1-4.5); ALKALINE PHOSPHATASE 167 U/L (45-117); BUN 2 mg/dl (7-24); CHLORIDE 112 mmol/L (98-107); CREATININE 0.71 mg/dL (0.55-1.02); LIPASE 797 U/L (73-393); PHOSPHOROUS 2.1 mg/dL (2.5-4.9); POTASSIUM 3.9 mmol/L (3.5-5.1); SGOT/AST 59 IU/L (3-35); SGPT/ALT 29 U/L (12-78); SODIUM 137 mmol/L (136-145); TOTAL PROTEIN 6.1 gm/dL (6.4-8.2)
[2017-05-18 08:30] LABS: ACT PARTIAL THROMBO TIME 25.8 SECONDS (20.8-31.5); INTERNATIONAL NORM RATIO 1.1 (2.0-3.5)
[2017-05-18 12:00] VITALS: BP 127/66
[2017-05-18 16:00] VITALS: BP 117/86
[2017-05-18 20:00] VITALS: BP 122/86
[2017-05-19] VITALS: BP 153/82
[2017-05-19 07:25] LABS: BASO # 0.1 10*3/uL (0.0-0.1); BASO % 0.8 % (0.0-1.0); EOS # 0.1 10*3/uL (0.0-0.4); EOS % 1.1 % (1.0-4.0); HEMOGLOBIN 9.2 g/dl (12.0-16.0); LYMPH # 1.4 10*3/uL (1.3-4.4); LYMPH % 18.2 % (27.0-41.0); MEAN CELL VOLUME 105.6 fl (81.0-99.0); MEAN CORPUSCULAR HGB 32.4 pg (27.0-31.0); MEAN CORPUSCULAR HGB CONC 30.7 g/dl (33.0-37.0); MEAN PLATELET VOLUME 10.1 fl (9.6-12.3); MONO # 0.6 10*3/uL (0.1-1.0); MONO % 8.4 % (3.0-9.0); NEUT # 5.4 10*3/uL (2.3-7.9); NEUT % 70.8 % (47.0-73.0); PLATELET COUNT AUTOMATED 185 10*3/uL (130-400); RED BLOOD COUNT 2.84 10*6/uL (4.10-5.10); RED CELL DISTRI WIDTH 21.2 % (0-14.5); WHITE BLOOD COUNT 7.6 10*3/uL (4.8-10.8)
[2017-05-19 07:45] LABS: ALBUMIN 2.4 gm/dl (3.1-4.5); ALKALINE PHOSPHATASE 184 U/L (45-117); BUN 3 mg/dl (7-24); CHLORIDE 112 mmol/L (98-107); PHOSPHOROUS 2.4 mg/dL (2.5-4.9); POTASSIUM 3.9 mmol/L (3.5-5.1); SGOT/AST 69 IU/L (3-35); SGPT/ALT 31 U/L (12-78); SODIUM 138 mmol/L (136-145); TOTAL PROTEIN 6.7 gm/dL (6.4-8.2)
[2017-05-19 08:00] VITALS: BP 128/86
[2017-05-19 12:00] VITALS: BP 141/90
[2017-05-19 16:00] VITALS: BP 135/94
[2017-05-19 20:00] VITALS: BP 114/78
[2017-05-20] VITALS: BP 118/82
[2017-05-20 08:00] VITALS: BP 136/90
[2017-05-20 09:16] LABS: BUN 3 mg/dl (7-24); CHLORIDE 109 mmol/L (98-107); CREATININE 0.68 mg/dL (0.55-1.02); POTASSIUM 4.3 mmol/L (3.5-5.1); SODIUM 137 mmol/L (136-145)
[2017-05-20 16:00] VITALS: BP 105/64
[2017-05-20 20:00] VITALS: BP 116/78
[2017-05-21] VITALS: BP 102/72
[2017-05-21 06:14] LABS: BASO % 0.7 % (0.0-1.0); EOS # 0.1 10*3/uL (0.0-0.4); EOS % 2.4 % (1.0-4.0); HEMATOCRIT 31.8 % (37.0-47.0); HEMOGLOBIN 9.6 g/dl (12.0-16.0); LYMPH # 1.2 10*3/uL (1.3-4.4); LYMPH % 28.6 % (27.0-41.0); MEAN CORPUSCULAR HGB 31.7 pg (27.0-31.0); MEAN CORPUSCULAR HGB CONC 30.2 g/dl (33.0-37.0); MEAN PLATELET VOLUME 9.8 fl (9.6-12.3); MONO # 0.4 10*3/uL (0.1-1.0); MONO % 10.5 % (3.0-9.0); NEUT # 2.4 10*3/uL (2.3-7.9); NEUT % 57.3 % (47.0-73.0); PLATELET COUNT AUTOMATED 195 10*3/uL (130-400); RED BLOOD COUNT 3.03 10*6/uL (4.10-5.10); RED CELL DISTRI WIDTH 19.9 % (0-14.5); WHITE BLOOD COUNT 4.2 10*3/uL (4.8-10.8)
[2017-05-21 06:42] LABS: ALBUMIN 2.4 gm/dl (3.1-4.5); ALKALINE PHOSPHATASE 182 U/L (45-117); BUN 3 mg/dl (7-24); CHLORIDE 111 mmol/L (98-107); CREATININE 0.66 mg/dL (0.55-1.02); POTASSIUM 3.5 mmol/L (3.5-5.1); SGOT/AST 64 IU/L (3-35); SGPT/ALT 30 U/L (12-78); SODIUM 139 mmol/L (136-145); TOTAL PROTEIN 6.6 gm/dL (6.4-8.2)
[2017-05-21 08:00] VITALS: BP 124/90
[2017-05-21 12:00] VITALS: BP 131/90
[2017-05-21 16:00] VITALS: BP 130/87
[2017-05-21 20:00] VITALS: BP 128/84
[2017-05-22] VITALS: BP 111/79
[2017-05-22 08:00] VITALS: BP 143/91
[2017-05-22 08:51] LABS: BUN 2 mg/dl (7-24); CHLORIDE 107 mmol/L (98-107); CREATININE 0.68 mg/dL (0.55-1.02); POTASSIUM 3.6 mmol/L (3.5-5.1); SODIUM 137 mmol/L (136-145)
[2017-05-22 08:52] LABS: PHOSPHOROUS 2.7 mg/dL (2.5-4.9)
[2017-05-22 12:00] VITALS: BP 132/92
[2017-05-22 16:00] VITALS: BP 118/78
[2017-05-22 20:00] VITALS: BP 142/82
[2017-05-23] VITALS: BP 128/73
[2017-05-23 06:59] LABS: MEAN CELL VOLUME 102.8 fl (81.0-99.0); MEAN CORPUSCULAR HGB 31.2 pg (27.0-31.0); MEAN CORPUSCULAR HGB CONC 30.3 g/dl (33.0-37.0); MEAN PLATELET VOLUME 10.6 fl (9.6-12.3); PLATELET COUNT AUTOMATED 194 10*3/uL (130-400); RED BLOOD COUNT 3.21 10*6/uL (4.10-5.10); RED CELL DISTRI WIDTH 18.6 % (0-14.5); WHITE BLOOD COUNT 5.2 10*3/uL (4.8-10.8)
[2017-05-23 07:10] LABS: BUN 2 mg/dl (7-24); CHLORIDE 109 mmol/L (98-107); CREATININE 0.66 mg/dL (0.55-1.02); POTASSIUM 3.1 mmol/L (3.5-5.1); SODIUM 138 mmol/L (136-145)
[2017-05-23 07:26] LABS: PLATELET SUFFICIENCY NORMAL (NORMAL); POLYCHROMASIA SLIGHT; TOTAL CELLS COUNTED 100 #CELLS
[2017-05-23 08:00] VITALS: BP 113/87
[2017-05-23 12:00] VITALS: BP 127/74
[2017-05-23 15:59] VITALS: BP 100/61
[2017-05-23 20:00] VITALS: BP 122/84
[2017-05-24] VITALS: BP 104/67
[2017-05-24 06:38] LABS: BASO # 0.1 10*3/uL (0.0-0.1); BASO % 0.9 % (0.0-1.0); EOS # 0.1 10*3/uL (0.0-0.4); EOS % 2.1 % (1.0-4.0); HEMATOCRIT 30.8 % (37.0-47.0); HEMOGLOBIN 9.5 g/dl (12.0-16.0); LYMPH # 1.2 10*3/uL (1.3-4.4); LYMPH % 20.7 % (27.0-41.0); MEAN CORPUSCULAR HGB 31.8 pg (27.0-31.0); MEAN CORPUSCULAR HGB CONC 30.8 g/dl (33.0-37.0); MEAN PLATELET VOLUME 9.8 fl (9.6-12.3); MONO # 0.6 10*3/uL (0.1-1.0); MONO % 10.7 % (3.0-9.0); NEUT # 3.7 10*3/uL (2.3-7.9); NEUT % 65.2 % (47.0-73.0); PLATELET COUNT AUTOMATED 206 10*3/uL (130-400); RED BLOOD COUNT 2.99 10*6/uL (4.10-5.10); RED CELL DISTRI WIDTH 18.2 % (0-14.5); WHITE BLOOD COUNT 5.6 10*3/uL (4.8-10.8)
[2017-05-24 06:50] LABS: BUN 2 mg/dl (7-24); CHLORIDE 106 mmol/L (98-107); CREATININE 0.64 mg/dL (0.55-1.02); POTASSIUM 2.6 mmol/L (3.5-5.1); SODIUM 139 mmol/L (136-145)
[2017-05-24 08:00] VITALS: BP 126/81
[2017-05-24 12:00] VITALS: BP 127/93
[2017-05-24 16:00] VITALS: BP 129/97
[2017-05-24 20:00] VITALS: BP 133/96
[2017-05-25] VITALS: BP 99/57
[2017-05-25 07:02] LABS: BASO # 0.1 10*3/uL (0.0-0.1); BASO % 0.8 % (0.0-1.0); EOS # 0.1 10*3/uL (0.0-0.4); EOS % 1.9 % (1.0-4.0); HEMATOCRIT 30.7 % (37.0-47.0); HEMOGLOBIN 9.5 g/dl (12.0-16.0); LYMPH # 1.5 10*3/uL (1.3-4.4); LYMPH % 23.8 % (27.0-41.0); MEAN CORPUSCULAR HGB 31.6 pg (27.0-31.0); MEAN CORPUSCULAR HGB CONC 30.9 g/dl (33.0-37.0); MONO # 0.7 10*3/uL (0.1-1.0); MONO % 11.6 % (3.0-9.0); NEUT # 3.9 10*3/uL (2.3-7.9); NEUT % 61.4 % (47.0-73.0); PLATELET COUNT AUTOMATED 212 10*3/uL (130-400); RED BLOOD COUNT 3.01 10*6/uL (4.10-5.10); RED CELL DISTRI WIDTH 17.6 % (0-14.5); WHITE BLOOD COUNT 6.3 10*3/uL (4.8-10.8)
[2017-05-25 07:18] LABS: ALBUMIN 2.3 gm/dl (3.1-4.5); ALKALINE PHOSPHATASE 170 U/L (45-117); BUN 3 mg/dl (7-24); CHLORIDE 106 mmol/L (98-107); CREATININE 0.72 mg/dL (0.55-1.02); POTASSIUM 2.7 mmol/L (3.5-5.1); SGOT/AST 45 IU/L (3-35); SGPT/ALT 27 U/L (12-78); SODIUM 138 mmol/L (136-145); TOTAL PROTEIN 6.5 gm/dL (6.4-8.2)
[2017-05-25 08:00] VITALS: BP 113/80
[2017-05-25 12:00] VITALS: BP 130/91
[2017-05-25 20:00] VITALS: BP 139/84
[2017-05-26 06:36] LABS: BASO # 0.1 10*3/uL (0.0-0.1); EOS # 0.2 10*3/uL (0.0-0.4); EOS % 2.8 % (1.0-4.0); HEMATOCRIT 28.8 % (37.0-47.0); HEMOGLOBIN 8.9 g/dl (12.0-16.0); LYMPH # 1.6 10*3/uL (1.3-4.4); MEAN CELL VOLUME 100.7 fl (81.0-99.0); MEAN CORPUSCULAR HGB 31.1 pg (27.0-31.0); MEAN CORPUSCULAR HGB CONC 30.9 g/dl (33.0-37.0); MEAN PLATELET VOLUME 9.9 fl (9.6-12.3); MONO # 0.6 10*3/uL (0.1-1.0); MONO % 10.3 % (3.0-9.0); NEUT # 3.3 10*3/uL (2.3-7.9); NEUT % 57.4 % (47.0-73.0); PLATELET COUNT AUTOMATED 190 10*3/uL (130-400); RED BLOOD COUNT 2.86 10*6/uL (4.10-5.10); RED CELL DISTRI WIDTH 17.2 % (0-14.5); WHITE BLOOD COUNT 5.7 10*3/uL (4.8-10.8)
[2017-05-26 06:39] LABS: ALBUMIN 2.1 gm/dl (3.1-4.5); ALKALINE PHOSPHATASE 151 U/L (45-117); BUN 2 mg/dl (7-24); CHLORIDE 110 mmol/L (98-107); PHOSPHOROUS 3.8 mg/dL (2.5-4.9); POTASSIUM 2.9 mmol/L (3.5-5.1); SGOT/AST 36 IU/L (3-35); SGPT/ALT 25 U/L (12-78); SODIUM 141 mmol/L (136-145); TOTAL PROTEIN 5.8 gm/dL (6.4-8.2)
[2017-05-26 08:00] VITALS: BP 130/87
[2017-05-26] MEDS ORDERED: THERA TABLET400 MCG PO (11:37)
[2017-05-26] MEDS ORDERED: ALDACTONE25 MG PO (11:37)
[2017-05-26] MEDS ORDERED: Anusol Hc,Anuco25 MG R (11:37)
[2017-05-26] MEDS ORDERED: FUROSEMIDE20 M1 PO (11:37)
[2017-05-26] MEDS ORDERED: LACTULOSE20 GM/30 M PO (11:37)
[2017-05-26] MEDS ORDERED: NATURE'S BLEND100 M2 PO (11:37)
[2017-05-26] MEDS ORDERED: KLOR-CON M2020 ME1 PO (11:37)
[2017-05-26] MEDS ORDERED: PANTOPRAZOLE SO40 MG PO (11:37)
[2017-05-26] MEDS ORDERED: Vitamin D PO (11:37)
[2017-05-26 12:00] VITALS: BP 125/82
[2017-05-26 16:00] VITALS: BP 111/70
[2017-05-26 20:00] VITALS: BP 110/82
[2017-05-27] VITALS: BP 137/93
[2017-05-27 08:00] VITALS: BP 120/78
[2017-05-27 08:05] LABS: ALBUMIN 2.1 gm/dl (3.1-4.5); ALKALINE PHOSPHATASE 148 U/L (45-117); BUN 2 mg/dl (7-24); CHLORIDE 109 mmol/L (98-107); CREATININE 0.67 mg/dL (0.55-1.02); POTASSIUM 3.2 mmol/L (3.5-5.1); SGOT/AST 29 IU/L (3-35); SGPT/ALT 24 U/L (12-78); SODIUM 139 mmol/L (136-145); TOTAL PROTEIN 5.9 gm/dL (6.4-8.2)
[2017-05-27 12:00] VITALS: BP 115/88
[2017-05-27] MEDS ORDERED: XIFAXAN550 MG PO (12:14)
[2017-05-27] MEDS ORDERED: VALIUM10 MG PO ×2 (16:57→16:59)
== END 2017-05-27 17:22 | disposition other institution (70) | DRG 438 ==
LOC: ED 03:31 → 5E 05:54 → EDHOLD 05:54 → 5E 06:16
PROVIDERS: Emergency Medicine; Family Medicine; Hospitalist; Internal Medicine; Internal Medicine Hospice and Palliative Medicine; Internal Medicine Nephrology; Registered Nurse; Student in an Organized Health Care Education/Training Program
DX: K85.20 Alcohol induced acute pancreatitis without necrosis or infection (principal); E43 Unspecified severe protein-calorie malnutrition; K72.90 Hepatic failure, unspecified without coma; E87.2 Acidosis; F10.231 Alcohol dependence with withdrawal delirium; I50.32 Chronic diastolic (congestive) heart failure; N39.0 Urinary tract infection, site not specified; E87.1 Hypo-osmolality and hyponatremia; I11.0 Hypertensive heart disease with heart failure; F12.10 Cannabis abuse, uncomplicated; R31.9 Hematuria, unspecified; K21.9 Gastro-esophageal reflux disease without esophagitis; M79.2 Neuralgia and neuritis, unspecified; B18.2 Chronic viral hepatitis C; F31.9 Bipolar disorder, unspecified; R73.9 Hyperglycemia, unspecified; E87.6 Hypokalemia; M19.90 Unspecified osteoarthritis, unspecified site; E55.9 Vitamin D deficiency, unspecified; D53.9 Nutritional anemia, unspecified; Y90.9 Presence of alcohol in blood, level not specified; R00.0 Tachycardia, unspecified; R14.0 Abdominal distension (gaseous); R33.9 Retention of urine, unspecified; K70.31 Alcoholic cirrhosis of liver with ascites; K76.0 Fatty (change of) liver, not elsewhere classified; B96.20 Unspecified Escherichia coli [E. coli] as the cause of diseases classified elsewhere; Z79.1 Long term (current) use of non-steroidal anti-inflammatories (NSAID); Z88.8 Allergy status to other drugs, medicaments and biological substances; Z87.891 Personal history of nicotine dependence; Z82.49 Family history of ischemic heart disease and other diseases of the circulatory system; Z68.25 Body mass index [BMI] 25.0-25.9, adult

== ENCOUNTER 2017-06-01 21:26 | Emergency (ER) | payer OTHER ==
[~2017-06-01] VITALS: Ht 162.5 cm; Wt 84.4 kg
[~2017-06-01 21:26] MED LIST changes: +ADVIL200 M1 PO; +ALDACTONE25 MG PO; +BUPROPION HCL150 M1 PO; +DIAZEPAM10 M1 PO; +FUROSEMIDE20 M1 PO; +KLOR-CON M2020 ME1 PO; +NATURE'S BLEND100 M2 PO; +THERA TABLET400 MCG PO; +Vitamin D PO
[2017-06-01 22:24] LABS: BASO % 0.6 % (0.0-1.0); EOS # 0.2 10*3/uL (0.0-0.4); EOS % 2.4 % (1.0-4.0); HEMATOCRIT 30.8 % (37.0-47.0); HEMOGLOBIN 9.4 g/dl (12.0-16.0); LYMPH # 1.3 10*3/uL (1.3-4.4); LYMPH % 20.2 % (27.0-41.0); MEAN CELL VOLUME 99.4 fl (81.0-99.0); MEAN CORPUSCULAR HGB 30.3 pg (27.0-31.0); MEAN CORPUSCULAR HGB CONC 30.5 g/dl (33.0-37.0); MEAN PLATELET VOLUME 10.2 fl (9.6-12.3); MONO # 0.7 10*3/uL (0.1-1.0); MONO % 9.9 % (3.0-9.0); NEUT # 4.4 10*3/uL (2.3-7.9); NEUT % 66.3 % (47.0-73.0); PLATELET COUNT AUTOMATED 167 10*3/uL (130-400); RED CELL DISTRI WIDTH 16.4 % (0-14.5); WHITE BLOOD COUNT 6.7 10*3/uL (4.8-10.8)
[2017-06-01 22:36] LABS: ACT PARTIAL THROMBO TIME 28.6 SECONDS (20.8-31.5); INTERNATIONAL NORM RATIO 1.1 (2.0-3.5)
[2017-06-01 22:40] LABS: ALBUMIN 2.3 gm/dl (3.1-4.5); ALKALINE PHOSPHATASE 154 U/L (45-117); BUN 4 mg/dl (7-24); CHLORIDE 107 mmol/L (98-107); CREATININE 0.76 mg/dL (0.55-1.02); LIPASE 700 U/L (73-393); SGOT/AST 37 IU/L (3-35); SGPT/ALT 23 U/L (12-78); SODIUM 141 mmol/L (136-145); TOTAL PROTEIN 6.9 gm/dL (6.4-8.2)
[2017-06-01 23:55] LABS: BILIRUBIN NEGATIVE (NEGATIVE); BLOOD TRACE-INTACT (NEGATIVE); CLARITY CLOUDY (CLEAR); COLOR YELLOW (YELLOW); GLUCOSE NEGATIVE (NEGATIVE); KETONE NEGATIVE (NEGATIVE); LEUKO ESTERASE 3+ (NEGATIVE); NITRITE NEGATIVE (NEGATIVE); PH 7.5 (5.0-9.0); SPECIFIC GRAVITY 1.015 (1.005-1.030); UROBILINOGEN 0.2 E.U./dl (0.2-1.0)
[2017-06-02 00:04] LABS: BACTERIA 4+; WBC TNTC wbc/hpf (0-5)
[2017-06-02] MEDS ORDERED: Anusol Hc,Anuco25 MG PO (00:34)
[2017-06-02] MEDS ORDERED: AMINOPHYLLIN200 MG PO (00:59)
[2017-06-02 01:28] VITALS: BP 140/96
== END 2017-06-02 01:39 | disposition other institution (70) ==
LOC: ED 21:26
PROVIDERS: Nurse Practitioner Family
DX: N39.0 Urinary tract infection, site not specified (principal); R19.7 Diarrhea, unspecified; F12.10 Cannabis abuse, uncomplicated; I11.0 Hypertensive heart disease with heart failure; I50.9 Heart failure, unspecified; K21.9 Gastro-esophageal reflux disease without esophagitis; M19.90 Unspecified osteoarthritis, unspecified site; F17.200 Nicotine dependence, unspecified, uncomplicated; Z98.890 Other specified postprocedural states; Z79.899 Other long term (current) drug therapy; Z88.6 Allergy status to analgesic agent; Z88.8 Allergy status to other drugs, medicaments and biological substances

== ENCOUNTER 2017-06-06 18:42 | Emergency (ER) | payer OTHER ==
[~2017-06-06] VITALS: Ht 162.5 cm; Wt 84.4 kg
[~2017-06-06 18:42] MED LIST changes: +AMINOPHYLLIN200 MG PO; +Anusol Hc,Anuco25 MG PO
[2017-06-06 19:46] VITALS: BP 144/68
== END 2017-06-06 19:33 | disposition home or self-care (01) ==
LOC: ED 18:42
DX: K62.3 Rectal prolapse (principal); F12.10 Cannabis abuse, uncomplicated; I11.0 Hypertensive heart disease with heart failure; I50.9 Heart failure, unspecified; K21.9 Gastro-esophageal reflux disease without esophagitis; M19.90 Unspecified osteoarthritis, unspecified site; Z98.890 Other specified postprocedural states; Z79.899 Other long term (current) drug therapy; Z87.891 Personal history of nicotine dependence; Z88.6 Allergy status to analgesic agent; Z88.8 Allergy status to other drugs, medicaments and biological substances

== ENCOUNTER 2017-06-07 20:45 | Emergency (ER) | payer OTHER ==
[~2017-06-07] VITALS: Ht 167.6 cm; Wt 84.4 kg
[2017-06-07 20:51] VITALS: BP 156/100
== END 2017-06-07 21:42 | disposition home or self-care (01) ==
LOC: ED 20:45
DX: K62.3 Rectal prolapse (principal); F12.10 Cannabis abuse, uncomplicated; Z87.891 Personal history of nicotine dependence; Z98.890 Other specified postprocedural states; Z79.899 Other long term (current) drug therapy; Z88.6 Allergy status to analgesic agent; Z88.8 Allergy status to other drugs, medicaments and biological substances

== ENCOUNTER 2017-06-18 08:56 | Inpatient (IN) | payer OTHER ==
[2017-06-18] VITALS (11 sets, daily range): BP systolic 104–138; BP diastolic 72–89
[~2017-06-18] VITALS: Ht 162.5 cm; Wt 68.5 kg
[2017-06-18 09:52] LABS: BASO % 0.6 % (0.0-1.0); EOS # 0.1 10*3/uL (0.0-0.4); EOS % 1.5 % (1.0-4.0); HEMATOCRIT 27.6 % (37.0-47.0); HEMOGLOBIN 8.3 g/dl (12.0-16.0); LYMPH # 1.2 10*3/uL (1.3-4.4); LYMPH % 16.8 % (27.0-41.0); MEAN CELL VOLUME 96.2 fl (81.0-99.0); MEAN CORPUSCULAR HGB 28.9 pg (27.0-31.0); MEAN CORPUSCULAR HGB CONC 30.1 g/dl (33.0-37.0); MEAN PLATELET VOLUME 9.7 fl (9.6-12.3); MONO # 0.6 10*3/uL (0.1-1.0); MONO % 8.6 % (3.0-9.0); NEUT # 5.1 10*3/uL (2.3-7.9); NEUT % 71.9 % (47.0-73.0); PLATELET COUNT AUTOMATED 213 10*3/uL (130-400); RED BLOOD COUNT 2.87 10*6/uL (4.10-5.10); RED CELL DISTRI WIDTH 16.5 % (0-14.5); WHITE BLOOD COUNT 7.1 10*3/uL (4.8-10.8)
[2017-06-18 10:01] LABS: ACT PARTIAL THROMBO TIME 26.7 SECONDS (20.8-31.5)
[2017-06-18 10:07] LABS: ALBUMIN 2.9 gm/dl (3.1-4.5); ALKALINE PHOSPHATASE 121 U/L (45-117); BUN 3 mg/dl (7-24); CHLORIDE 109 mmol/L (98-107); CREATININE 0.78 mg/dL (0.55-1.02); LIPASE 141 U/L (73-393); POTASSIUM 4.3 mmol/L (3.5-5.1); SGOT/AST 37 IU/L (3-35); SGPT/ALT 22 U/L (12-78); SODIUM 140 mmol/L (136-145); TOTAL PROTEIN 7.4 gm/dL (6.4-8.2)
[2017-06-18 10:12] LABS: ETHYL ALCOHOL < 3.0 mg/dl (<3); TROPONIN I < 0.015 ng/ml (<0.045)
[2017-06-18] MEDS ORDERED: VALIUM5 MG PO (12:20)
[2017-06-19] VITALS: BP 118/74
[2017-06-19 06:45] LABS: BASO % 0.7 % (0.0-1.0); EOS # 0.2 10*3/uL (0.0-0.4); EOS % 3.7 % (1.0-4.0); HEMATOCRIT 29.5 % (37.0-47.0); HEMOGLOBIN 8.6 g/dl (12.0-16.0); LYMPH # 1.1 10*3/uL (1.3-4.4); LYMPH % 23.8 % (27.0-41.0); MEAN CELL VOLUME 97.4 fl (81.0-99.0); MEAN CORPUSCULAR HGB 28.4 pg (27.0-31.0); MEAN CORPUSCULAR HGB CONC 29.2 g/dl (33.0-37.0); MEAN PLATELET VOLUME 9.9 fl (9.6-12.3); MONO # 0.4 10*3/uL (0.1-1.0); MONO % 9.2 % (3.0-9.0); NEUT # 2.9 10*3/uL (2.3-7.9); NEUT % 62.2 % (47.0-73.0); PLATELET COUNT AUTOMATED 186 10*3/uL (130-400); RED BLOOD COUNT 3.03 10*6/uL (4.10-5.10); RED CELL DISTRI WIDTH 16.5 % (0-14.5); WHITE BLOOD COUNT 4.6 10*3/uL (4.8-10.8)
[2017-06-19 07:35] LABS: CHLORIDE 105 mmol/L (98-107); POTASSIUM 3.8 mmol/L (3.5-5.1); SODIUM 139 mmol/L (136-145)
[2017-06-19 08:00] VITALS: BP 105/83
[2017-06-19 08:06] LABS: ALBUMIN 2.7 gm/dl (3.1-4.5); ALKALINE PHOSPHATASE 117 U/L (45-117); BUN 4 mg/dl (7-24); CREATININE 0.72 mg/dL (0.55-1.02); PHOSPHOROUS 3.9 mg/dL (2.5-4.9); SGOT/AST 34 IU/L (3-35); SGPT/ALT 21 U/L (12-78); TOTAL PROTEIN 7.2 gm/dL (6.4-8.2)
[2017-06-19 08:32] LABS: VITAMIN D, 25-HYDROXY 17.3 ng/mL (30-100)
[2017-06-19 12:00] VITALS: BP 118/74
[2017-06-19] MEDS ORDERED: IS (12:51)
[2017-06-19] MEDS ORDERED: OXYCODONE HCL10 M1 PO (12:53)
== END 2017-06-19 14:45 | disposition home or self-care (01) | DRG 184 ==
LOC: ED 08:56 → EDHOLD 11:44 → 5E 12:05
PROVIDERS: Emergency Medicine; Family Medicine
DX: S22.41XA Multiple fractures of ribs, right side, initial encounter for closed fracture (principal); E44.0 Moderate protein-calorie malnutrition; S09.90XA Unspecified injury of head, initial encounter; I50.32 Chronic diastolic (congestive) heart failure; R26.81 Unsteadiness on feet; R70.0 Elevated erythrocyte sedimentation rate; F31.9 Bipolar disorder, unspecified; R55 Syncope and collapse; W18.30XA Fall on same level, unspecified, initial encounter; Y93.89 Activity, other specified; Y92.091 Bathroom in other non-institutional residence as the place of occurrence of the external cause; Y99.8 Other external cause status; Z82.49 Family history of ischemic heart disease and other diseases of the circulatory system; Z88.8 Allergy status to other drugs, medicaments and biological substances; Z79.899 Other long term (current) drug therapy; Z68.31 Body mass index [BMI] 31.0-31.9, adult

== ENCOUNTER 2017-07-11 19:13 | Inpatient (IN) | payer OTHER ==
[~2017-07-11] VITALS: Ht 162.5 cm; Wt 64.7 kg
[~2017-07-11 19:13] MED LIST changes: +IS; +OXYCODONE HCL10 M1 PO
[2017-07-11 19:18] VITALS: BP 111/83
[2017-07-11 20:33] VITALS: BP 148/90
[2017-07-11 21:14] LABS: BASO % 0.3 % (0.0-1.0); EOS # 0.1 10*3/uL (0.0-0.4); EOS % 1.2 % (1.0-4.0); HEMOGLOBIN 9.8 g/dl (12.0-16.0); LYMPH # 2.5 10*3/uL (1.3-4.4); LYMPH % 36.9 % (27.0-41.0); MEAN CELL VOLUME 89.6 fl (81.0-99.0); MEAN CORPUSCULAR HGB 27.5 pg (27.0-31.0); MEAN CORPUSCULAR HGB CONC 30.6 g/dl (33.0-37.0); MEAN PLATELET VOLUME 10.2 fl (9.6-12.3); MONO # 0.4 10*3/uL (0.1-1.0); MONO % 5.4 % (3.0-9.0); NEUT # 3.8 10*3/uL (2.3-7.9); NEUT % 55.9 % (47.0-73.0); PLATELET COUNT AUTOMATED 155 10*3/uL (130-400); RED BLOOD COUNT 3.57 10*6/uL (4.10-5.10); RED CELL DISTRI WIDTH 18.6 % (0-14.5); WHITE BLOOD COUNT 6.8 10*3/uL (4.8-10.8)
[2017-07-11 21:30] LABS: ALBUMIN 3.3 gm/dl (3.1-4.5); ALKALINE PHOSPHATASE 649 U/L (45-117); BUN 3 mg/dl (7-24); CHLORIDE 100 mmol/L (98-107); CREATININE 0.85 mg/dL (0.55-1.02); LIPASE 181 U/L (73-393); POTASSIUM 3.9 mmol/L (3.5-5.1); SGOT/AST 112 IU/L (3-35); SGPT/ALT 35 U/L (12-78); SODIUM 137 mmol/L (136-145); TOTAL PROTEIN 8.5 gm/dL (6.4-8.2)
[2017-07-11 21:33] LABS: URINE AMPHETAMINES < 1000 (1000ng/ml); URINE BARBITURATES < 200 (200ng/ml); URINE BENZODIAZEPINES > 200 (200ng/ml); URINE CANNABINOIDS (THC) > 50 (50ng/ml); URINE COCAINE < 300 (300ng/ml); URINE METHADONE < 300 (300ng/ml); URINE OPIATES > 300 (300ng/ml)
[2017-07-11 21:33] LABS: TROPONIN I < 0.015 ng/ml (<0.045)
[2017-07-11 21:34] LABS: URINE PHENCYCLIDINE < 25 (25ng/ml)
[2017-07-11 21:52] VITALS: BP 172/95
[2017-07-11 22:15] VITALS: BP 131/98
[2017-07-12] VITALS: BP 143/76
[2017-07-12 08:00] VITALS: BP 155/89
[2017-07-12 12:00] VITALS: BP 138/62
[2017-07-12 16:00] VITALS: BP 128/86
== END 2017-07-12 18:00 | disposition left against medical advice (07) | DRG 894 ==
LOC: ED 19:13 → 4E 21:45 → EDHOLD 21:45 → 4E 21:59
PROVIDERS: Physician Assistant
DX: F10.239 Alcohol dependence with withdrawal, unspecified (principal); R65.10 Systemic inflammatory response syndrome (SIRS) of non-infectious origin without acute organ dysfunction; E46 Unspecified protein-calorie malnutrition; I11.0 Hypertensive heart disease with heart failure; I50.32 Chronic diastolic (congestive) heart failure; S09.90XA Unspecified injury of head, initial encounter; K76.0 Fatty (change of) liver, not elsewhere classified; R74.0 Nonspecific elevation of levels of transaminase and lactic acid dehydrogenase [LDH]; T07.XXXA Unspecified multiple injuries, initial encounter; R55 Syncope and collapse; F12.90 Cannabis use, unspecified, uncomplicated; B19.20 Unspecified viral hepatitis C without hepatic coma; E55.9 Vitamin D deficiency, unspecified; F19.90 Other psychoactive substance use, unspecified, uncomplicated; K21.9 Gastro-esophageal reflux disease without esophagitis; F41.1 Generalized anxiety disorder; R00.0 Tachycardia, unspecified; W18.30XA Fall on same level, unspecified, initial encounter; Z53.21 Procedure and treatment not carried out due to patient leaving prior to being seen by health care provider; F17.200 Nicotine dependence, unspecified, uncomplicated; F31.9 Bipolar disorder, unspecified; M19.90 Unspecified osteoarthritis, unspecified site; Z87.19 Personal history of other diseases of the digestive system; Z87.440 Personal history of urinary (tract) infections; Z88.8 Allergy status to other drugs, medicaments and biological substances; Z79.899 Other long term (current) drug therapy; Z82.49 Family history of ischemic heart disease and other diseases of the circulatory system; Z81.8 Family history of other mental and behavioral disorders; Y93.89 Activity, other specified; Y92.099 Unspecified place in other non-institutional residence as the place of occurrence of the external cause; Y99.8 Other external cause status; Z68.28 Body mass index [BMI] 28.0-28.9, adult

== ENCOUNTER 2017-08-25 16:51 | Inpatient (IN) | payer OTHER ==
[~2017-08-25] VITALS: Ht 162.5 cm; Wt 65.8 kg
[2017-08-25 16:55] VITALS: BP 143/85
[2017-08-25 17:38] LABS: ACT PARTIAL THROMBO TIME 27.4 SECONDS (20.8-31.5); INTERNATIONAL NORM RATIO 1.1 (2.0-3.5)
[2017-08-25 18:12] LABS: BILIRUBIN 2+ (NEGATIVE); BLOOD NEGATIVE (NEGATIVE); CLARITY CLOUDY (CLEAR); COLOR YELLOW (YELLOW); GLUCOSE NEGATIVE (NEGATIVE); KETONE NEGATIVE (NEGATIVE); LEUKO ESTERASE 2+ (NEGATIVE); NITRITE POSITIVE (NEGATIVE); PH 6.5 (5.0-9.0)
[2017-08-25 18:20] LABS: URINE AMPHETAMINES < 1000 (1000ng/ml); URINE BARBITURATES < 200 (200ng/ml); URINE BENZODIAZEPINES > 200 (200ng/ml); URINE CANNABINOIDS (THC) > 50 (50ng/ml); URINE COCAINE < 300 (300ng/ml); URINE METHADONE < 300 (300ng/ml); URINE OPIATES > 300 (300ng/ml)
[2017-08-25 18:20] LABS: BACTERIA 4+; EPITHELIAL CELLS TNTC; RBC 0-2 rbc/hpf (0-2); WBC 21-30 wbc/hpf (0-5)
[2017-08-25 18:24] LABS: URINE PHENCYCLIDINE < 25 (25ng/ml)
[2017-08-25 20:00] VITALS: BP 159/82
[2017-08-26] VITALS: BP 122/71
[2017-08-26 06:40] LABS: BASO % 0.7 % (0.0-1.0); BUN 7 mg/dl (7-24); CHLORIDE 112 mmol/L (98-107); CHOLESTEROL 121 mg/dL (<200); CREATININE 0.91 mg/dL (0.55-1.02); HDL CHOLESTEROL 39 mg/dl (40-60); HEMATOCRIT 32.7 % (37.0-47.0); HEMOGLOBIN 9.6 g/dl (12.0-16.0); LDL CHOLESTEROL 65 mg/dL (9-159); LYMPH % 35.9 % (27.0-41.0); MEAN CELL VOLUME 87.2 fl (81.0-99.0); MEAN CORPUSCULAR HGB 25.6 pg (27.0-31.0); MEAN CORPUSCULAR HGB CONC 29.4 g/dl (33.0-37.0); MEAN PLATELET VOLUME 10.3 fl (9.6-12.3); MONO # 0.3 10*3/uL (0.1-1.0); MONO % 10.3 % (3.0-9.0); NEUT # 1.5 10*3/uL (2.3-7.9); NEUT % 51.8 % (47.0-73.0); PHOSPHOROUS 3.5 mg/dL (2.5-4.9); PLATELET COUNT AUTOMATED 129 10*3/uL (130-400); POTASSIUM 2.9 mmol/L (3.5-5.1); RED BLOOD COUNT 3.75 10*6/uL (4.10-5.10); RED CELL DISTRI WIDTH 21.5 % (0-14.5); SODIUM 141 mmol/L (136-145); TRIGLYCERIDES 83 mg/dl (<150); VLDL CHOLESTEROL 17 mg/dL (6-40); WHITE BLOOD COUNT 2.9 10*3/uL (4.8-10.8)
[2017-08-26 07:19] LABS: VITAMIN D, 25-HYDROXY 18.2 ng/mL (30-100)
[2017-08-26 08:00] VITALS: BP 150/88
[2017-08-26 12:00] VITALS: BP 143/90
[2017-08-26 16:00] VITALS: BP 146/83
[2017-08-26 20:00] VITALS: BP 143/102
[2017-08-27] VITALS: BP 119/86
[2017-08-27 00:45] LABS: BUN 6 mg/dl (7-24); CHLORIDE 114 mmol/L (98-107); CREATININE 0.99 mg/dL (0.55-1.02); POTASSIUM 3.4 mmol/L (3.5-5.1); SODIUM 142 mmol/L (136-145)
[2017-08-27 06:36] LABS: BASO % 0.3 % (0.0-1.0); EOS % 1.3 % (1.0-4.0); HEMATOCRIT 32.3 % (37.0-47.0); HEMOGLOBIN 9.1 g/dl (12.0-16.0); LYMPH % 31.8 % (27.0-41.0); MEAN CELL VOLUME 90.2 fl (81.0-99.0); MEAN CORPUSCULAR HGB 25.4 pg (27.0-31.0); MEAN CORPUSCULAR HGB CONC 28.2 g/dl (33.0-37.0); MEAN PLATELET VOLUME 9.6 fl (9.6-12.3); MONO # 0.3 10*3/uL (0.1-1.0); NEUT # 1.7 10*3/uL (2.3-7.9); NEUT % 55.3 % (47.0-73.0); PLATELET COUNT AUTOMATED 108 10*3/uL (130-400); RED BLOOD COUNT 3.58 10*6/uL (4.10-5.10); RED CELL DISTRI WIDTH 22.5 % (0-14.5); WHITE BLOOD COUNT 3.1 10*3/uL (4.8-10.8)
[2017-08-27 06:37] LABS: BUN 5 mg/dl (7-24); CHLORIDE 114 mmol/L (98-107); CREATININE 0.91 mg/dL (0.55-1.02); POTASSIUM 3.2 mmol/L (3.5-5.1); SODIUM 142 mmol/L (136-145)
[2017-08-27 08:00] VITALS: BP 140/80
[2017-08-27] MEDS ORDERED: Fioricet 325 MG1 TAB PO (09:36)
[2017-08-27] MEDS ORDERED: ZOFRAN4 MG PO (09:36)
[2017-08-27] MEDS ORDERED: KLOR-CON M2020 ME1 PO (10:50)
== END 2017-08-27 10:42 | disposition home or self-care (01) | DRG 871 ==
LOC: ED 16:51 → EDHOLD 17:47 → 4E 17:47
PROVIDERS: Emergency Medicine; Internal Medicine Nephrology; Student in an Organized Health Care Education/Training Program
DX: A41.9 Sepsis, unspecified organism (principal); N17.0 Acute kidney failure with tubular necrosis; N39.0 Urinary tract infection, site not specified; I50.32 Chronic diastolic (congestive) heart failure; D61.818 Other pancytopenia; B19.20 Unspecified viral hepatitis C without hepatic coma; E87.6 Hypokalemia; E80.6 Other disorders of bilirubin metabolism; R74.0 Nonspecific elevation of levels of transaminase and lactic acid dehydrogenase [LDH]; F31.9 Bipolar disorder, unspecified; F41.1 Generalized anxiety disorder; K70.30 Alcoholic cirrhosis of liver without ascites; F10.20 Alcohol dependence, uncomplicated; I11.0 Hypertensive heart disease with heart failure; Z96.642 Presence of left artificial hip joint; K21.9 Gastro-esophageal reflux disease without esophagitis; D72.819 Decreased white blood cell count, unspecified; D69.6 Thrombocytopenia, unspecified; D64.9 Anemia, unspecified; Z87.891 Personal history of nicotine dependence; Z82.49 Family history of ischemic heart disease and other diseases of the circulatory system; Z88.8 Allergy status to other drugs, medicaments and biological substances; Z79.899 Other long term (current) drug therapy

== ENCOUNTER 2017-09-07 18:37 | Emergency (ER) | payer OTHER ==
[~2017-09-07] VITALS: Wt 65.8 kg
[~2017-09-07 18:37] MED LIST changes: +Fioricet 325 MG1 TAB PO; +ZOFRAN4 MG PO
[2017-09-07 19:43] LABS: HEMATOCRIT 33.8 % (37.0-47.0); HEMOGLOBIN 10.4 g/dl (12.0-16.0); MEAN CELL VOLUME 84.5 fl (81.0-99.0); MEAN CORPUSCULAR HGB CONC 30.8 g/dl (33.0-37.0); MEAN PLATELET VOLUME 9.8 fl (9.6-12.3); PLATELET COUNT AUTOMATED 272 10*3/uL (130-400); RED CELL DISTRI WIDTH 22.2 % (0-14.5); WHITE BLOOD COUNT 11.2 10*3/uL (4.8-10.8)
[2017-09-07 19:58] LABS: ACETAMINOPHEN (TYLENOL) 14.2 ug/ml (10-30); ALKALINE PHOSPHATASE 478 U/L (45-117); BUN 2 mg/dl (7-24); CHLORIDE 110 mmol/L (98-107); CREATININE 0.84 mg/dL (0.55-1.02); POTASSIUM 3.5 mmol/L (3.5-5.1); SGOT/AST 166 IU/L (3-35); SGPT/ALT 59 U/L (12-78); SODIUM 142 mmol/L (136-145); TOTAL PROTEIN 7.6 gm/dL (6.4-8.2)
[2017-09-07 20:00] VITALS: BP 147/88
[2017-09-07 20:01] LABS: TROPONIN I < 0.015 ng/ml (<0.045)
[2017-09-07 20:09] LABS: BILIRUBIN NEGATIVE (NEGATIVE); BLOOD NEGATIVE (NEGATIVE); CLARITY CLEAR (CLEAR); COLOR YELLOW (YELLOW); GLUCOSE NEGATIVE (NEGATIVE); KETONE NEGATIVE (NEGATIVE); LEUKO ESTERASE 1+ (NEGATIVE); NITRITE NEGATIVE (NEGATIVE); PH 6.5 (5.0-9.0); SPECIFIC GRAVITY <= 1.005 (1.005-1.030); UROBILINOGEN 0.2 E.U./dl (0.2-1.0)
[2017-09-07 20:12] LABS: TOTAL CELLS COUNTED 100 #CELLS
[2017-09-07 20:13] LABS: OVALOCYTES FEW; PLATELET SUFFICIENCY NORMAL (NORMAL)
[2017-09-07 20:15] LABS: BACTERIA 1+; EPITHELIAL CELLS 50-55; WBC 16-20 wbc/hpf (0-5)
[2017-09-07 20:18] LABS: URINE AMPHETAMINES < 1000 (1000ng/ml); URINE BARBITURATES > 200 (200ng/ml); URINE BENZODIAZEPINES < 200 (200ng/ml); URINE CANNABINOIDS (THC) < 50 (50ng/ml); URINE COCAINE < 300 (300ng/ml); URINE METHADONE < 300 (300ng/ml); URINE OPIATES < 300 (300ng/ml)
[2017-09-07 20:19] LABS: URINE PHENCYCLIDINE < 25 (25ng/ml)
== END 2017-09-07 20:24 | disposition home or self-care (01) ==
LOC: ED 18:37
PROVIDERS: Physician Assistant
DX: F10.129 Alcohol abuse with intoxication, unspecified (principal); G89.29 Other chronic pain; F12.10 Cannabis abuse, uncomplicated; Z87.891 Personal history of nicotine dependence; Z98.890 Other specified postprocedural states; Z88.6 Allergy status to analgesic agent; Z88.8 Allergy status to other drugs, medicaments and biological substances; Y90.9 Presence of alcohol in blood, level not specified

== ENCOUNTER 2017-09-09 04:59 | Emergency (ER) | payer OTHER ==
[~2017-09-09] VITALS: Ht 162.5 cm; Wt 72.6 kg
[2017-09-09 06:33] LABS: BASO % 0.4 % (0.0-1.0); EOS % 0.2 % (1.0-4.0); HEMATOCRIT 37.1 % (37.0-47.0); LYMPH # 3.6 10*3/uL (1.3-4.4); LYMPH % 31.9 % (27.0-41.0); MEAN CORPUSCULAR HGB 26.1 pg (27.0-31.0); MEAN CORPUSCULAR HGB CONC 29.6 g/dl (33.0-37.0); MEAN PLATELET VOLUME 9.6 fl (9.6-12.3); MONO # 0.6 10*3/uL (0.1-1.0); NEUT # 6.9 10*3/uL (2.3-7.9); NEUT % 61.9 % (47.0-73.0); NUCLEATED RED BLOOD CELL 0.4 % (0.0-0.0); PLATELET COUNT AUTOMATED 300 10*3/uL (130-400); RED BLOOD COUNT 4.22 10*6/uL (4.10-5.10); RED CELL DISTRI WIDTH 22.9 % (0-14.5); WHITE BLOOD COUNT 11.2 10*3/uL (4.8-10.8)
[2017-09-09 06:37] LABS: MEAN CELL VOLUME 87.9 fl (81.0-99.0)
[2017-09-09 06:51] LABS: ALBUMIN 3.3 gm/dl (3.1-4.5); ALKALINE PHOSPHATASE 506 U/L (45-117); BUN 5 mg/dl (7-24); CHLORIDE 106 mmol/L (98-107); CREATININE 1.25 mg/dL (0.55-1.02); LIPASE 196 U/L (73-393); POTASSIUM 3.4 mmol/L (3.5-5.1); SGOT/AST 181 IU/L (3-35); SGPT/ALT 65 U/L (12-78); SODIUM 139 mmol/L (136-145); TOTAL PROTEIN 8.4 gm/dL (6.4-8.2)
[2017-09-09 06:54] LABS: ETHYL ALCOHOL < 3.0 mg/dl (<3); TROPONIN I < 0.015 ng/ml (<0.045)
[2017-09-09] MEDS ORDERED: NEURONTIN300 MG PO (11:19)
[2017-09-09 11:30] VITALS: BP 132/90
[2017-09-10] MEDS ORDERED: ZOFRAN4 MG PO (13:39)
== END 2017-09-09 12:41 | disposition home or self-care (01) ==
LOC: ED 04:59
PROVIDERS: Emergency Medicine
DX: S00.03XA Contusion of scalp, initial encounter (principal); F12.10 Cannabis abuse, uncomplicated; R56.9 Unspecified convulsions; G89.29 Other chronic pain; I11.0 Hypertensive heart disease with heart failure; I50.30 Unspecified diastolic (congestive) heart failure; K21.9 Gastro-esophageal reflux disease without esophagitis; M19.90 Unspecified osteoarthritis, unspecified site; Z88.6 Allergy status to analgesic agent; Z88.8 Allergy status to other drugs, medicaments and biological substances; Z79.899 Other long term (current) drug therapy; Z87.891 Personal history of nicotine dependence; W19.XXXA Unspecified fall, initial encounter; Y93.89 Activity, other specified; Y92.89 Other specified places as the place of occurrence of the external cause; Y99.9 Unspecified external cause status

== ENCOUNTER 2017-09-10 12:32 | Emergency (ER) | payer OTHER ==
[~2017-09-10] VITALS: Ht 162.5 cm; Wt 64.4 kg
[2017-09-10 12:35] VITALS: BP 172/54
[2017-09-10 13:13] LABS: BASO % 0.4 % (0.0-1.0); EOS % 0.2 % (1.0-4.0); HEMATOCRIT 33.1 % (37.0-47.0); HEMOGLOBIN 9.6 g/dl (12.0-16.0); LYMPH # 1.4 10*3/uL (1.3-4.4); LYMPH % 29.8 % (27.0-41.0); MEAN CELL VOLUME 89.5 fl (81.0-99.0); MEAN CORPUSCULAR HGB 25.9 pg (27.0-31.0); MEAN PLATELET VOLUME 9.7 fl (9.6-12.3); MONO # 0.3 10*3/uL (0.1-1.0); MONO % 5.6 % (3.0-9.0); NEUT # 3.1 10*3/uL (2.3-7.9); NEUT % 63.6 % (47.0-73.0); NUCLEATED RED BLOOD CELL 0.4 % (0.0-0.0); RED CELL DISTRI WIDTH 23.3 % (0-14.5); WHITE BLOOD COUNT 4.8 10*3/uL (4.8-10.8)
[2017-09-10 13:14] LABS: PLATELET COUNT AUTOMATED 145 10*3/uL (130-400)
[2017-09-10 13:32] LABS: ALBUMIN 2.8 gm/dl (3.1-4.5); ALKALINE PHOSPHATASE 459 U/L (45-117); BUN 4 mg/dl (7-24); CHLORIDE 109 mmol/L (98-107); CREATININE 0.87 mg/dL (0.55-1.02); POTASSIUM 4.2 mmol/L (3.5-5.1); SGOT/AST 176 IU/L (3-35); SGPT/ALT 64 U/L (12-78); SODIUM 137 mmol/L (136-145); TOTAL PROTEIN 7.5 gm/dL (6.4-8.2)
[2017-09-10] MEDS ORDERED: ZOFRAN4 MG PO (13:39)
== END 2017-09-10 13:41 | disposition home or self-care (01) ==
LOC: ED 12:32
PROVIDERS: Nurse Practitioner Family
DX: R11.2 Nausea with vomiting, unspecified (principal); I11.0 Hypertensive heart disease with heart failure; I50.9 Heart failure, unspecified; F31.9 Bipolar disorder, unspecified; G89.29 Other chronic pain; K21.9 Gastro-esophageal reflux disease without esophagitis; E87.6 Hypokalemia; Z87.891 Personal history of nicotine dependence; Z88.8 Allergy status to other drugs, medicaments and biological substances; Z79.899 Other long term (current) drug therapy

== ENCOUNTER 2017-10-12 07:35 | Emergency (ER) | payer OTHER ==
[~2017-10-12] VITALS: Ht 160 cm; Wt 63.5 kg
[2017-10-12 08:16] LABS: BASO % 0.3 % (0.0-1.0); EOS % 0.8 % (1.0-4.0); HEMOGLOBIN 11.4 g/dl (12.0-16.0); LYMPH # 0.9 10*3/uL (1.3-4.4); LYMPH % 24.1 % (27.0-41.0); MEAN CELL VOLUME 89.6 fl (81.0-99.0); MEAN CORPUSCULAR HGB 27.6 pg (27.0-31.0); MEAN CORPUSCULAR HGB CONC 30.8 g/dl (33.0-37.0); MEAN PLATELET VOLUME 9.9 fl (9.6-12.3); MONO # 0.3 10*3/uL (0.1-1.0); MONO % 7.2 % (3.0-9.0); NEUT # 2.6 10*3/uL (2.3-7.9); NEUT % 67.6 % (47.0-73.0); PLATELET COUNT AUTOMATED 67 10*3/uL (130-400); RED BLOOD COUNT 4.13 10*6/uL (4.10-5.10); RED CELL DISTRI WIDTH 21.9 % (0-14.5); WHITE BLOOD COUNT 3.9 10*3/uL (4.8-10.8)
[2017-10-12 08:34] LABS: ALBUMIN 3.3 gm/dl (3.1-4.5); ALKALINE PHOSPHATASE 428 U/L (45-117); BUN 8 mg/dl (7-24); CHLORIDE 106 mmol/L (98-107); CREATININE 0.54 mg/dL (0.55-1.02); POTASSIUM 3.8 mmol/L (3.5-5.1); SGOT/AST 191 IU/L (3-35); SGPT/ALT 65 U/L (12-78); SODIUM 139 mmol/L (136-145); TOTAL PROTEIN 7.6 gm/dL (6.4-8.2)
[2017-10-12 14:11] VITALS: BP 120/71
== END 2017-10-12 14:22 | disposition short-term general hospital (02) ==
LOC: ED 07:35
PROVIDERS: Emergency Medicine
DX: R56.9 Unspecified convulsions (principal); F41.9 Anxiety disorder, unspecified; I11.0 Hypertensive heart disease with heart failure; I50.9 Heart failure, unspecified; G89.29 Other chronic pain; K21.9 Gastro-esophageal reflux disease without esophagitis; F12.10 Cannabis abuse, uncomplicated; Z98.890 Other specified postprocedural states; Z87.891 Personal history of nicotine dependence; Z79.899 Other long term (current) drug therapy; Z88.6 Allergy status to analgesic agent; Z88.8 Allergy status to other drugs, medicaments and biological substances

== ENCOUNTER 2018-04-07 06:17 | Emergency (ER) | payer OTHER ==
[~2018-04-07] VITALS: Ht 167.6 cm; Wt 77.1 kg
[~2018-04-07 06:17] MED LIST changes: +CALCIUM CARBON200 MG PO; +DOXEPIN50 MG PO; +ENULOSE10 GM/151 PO; +LASIX20 MG PO; +LEVAQUIN750 M1 PO; +NEURONTIN400 MG PO; +OXYCODONE HCL5 MG PO; +OXYCODONE5 M1 PO; +SYNTHROID,LEVO75 MCG PO; +TYLENOL325 M2 PO
[2018-04-07 06:57] LABS: BASO % 0.6 % (0.0-1.0); EOS # 0.1 10*3/uL (0.0-0.4); HEMATOCRIT 32.4 % (37.0-47.0); HEMOGLOBIN 10.5 g/dl (12.0-16.0); LYMPH # 1.1 10*3/uL (1.3-4.4); LYMPH % 32.1 % (27.0-41.0); MEAN CELL VOLUME 102.5 fl (81.0-99.0); MEAN CORPUSCULAR HGB 33.2 pg (27.0-31.0); MEAN CORPUSCULAR HGB CONC 32.4 g/dl (33.0-37.0); MEAN PLATELET VOLUME 10.3 fl (9.6-12.3); MONO # 0.3 10*3/uL (0.1-1.0); MONO % 9.6 % (3.0-9.0); NEUT # 1.9 10*3/uL (2.3-7.9); NEUT % 55.4 % (47.0-73.0); PLATELET COUNT AUTOMATED 73 10*3/uL (130-400); RED BLOOD COUNT 3.16 10*6/uL (4.10-5.10); RED CELL DISTRI WIDTH 16.2 % (0-14.5); WHITE BLOOD COUNT 3.4 10*3/uL (4.8-10.8)
[2018-04-07 07:10] LABS: ACT PARTIAL THROMBO TIME 27.4 SECONDS (20.8-31.5); INTERNATIONAL NORM RATIO 1.1 (2.0-3.5)
[2018-04-07 07:15] LABS: ALBUMIN 2.5 gm/dl (3.1-4.5); ALKALINE PHOSPHATASE 176 U/L (45-117); BUN 4 mg/dl (7-24); CHLORIDE 97 mmol/L (98-107); CREATININE 0.91 mg/dL (0.55-1.02); POTASSIUM 2.6 mmol/L (3.5-5.1); SGOT/AST 43 IU/L (3-35); SGPT/ALT 22 U/L (12-78); SODIUM 136 mmol/L (136-145); TOTAL PROTEIN 5.9 gm/dL (6.4-8.2)
[2018-04-07 07:18] LABS: ETHYL ALCOHOL < 3.0 mg/dl (<3); TROPONIN I < 0.015 ng/ml (<0.045)
[2018-04-07 09:57] VITALS: BP 116/86
== END 2018-04-07 10:04 | disposition short-term general hospital (02) ==
LOC: ED 06:17
PROVIDERS: Emergency Medicine Emergency Medical Services
DX: S01.01XA Laceration without foreign body of scalp, initial encounter (principal); K72.90 Hepatic failure, unspecified without coma; K21.9 Gastro-esophageal reflux disease without esophagitis; M19.90 Unspecified osteoarthritis, unspecified site; E03.9 Hypothyroidism, unspecified; I11.0 Hypertensive heart disease with heart failure; I50.32 Chronic diastolic (congestive) heart failure; Z87.891 Personal history of nicotine dependence; Z88.6 Allergy status to analgesic agent; Z88.8 Allergy status to other drugs, medicaments and biological substances; W19.XXXA Unspecified fall, initial encounter; Y93.89 Activity, other specified; Y92.129 Unspecified place in nursing home as the place of occurrence of the external cause; Y99.8 Other external cause status

== ENCOUNTER 2018-04-14 12:44 | Emergency (ER) | payer OTHER ==
[~2018-04-14] VITALS: Ht 162.5 cm; Wt 77.1 kg
[2018-04-14 12:46] VITALS: BP 121/79
== END 2018-04-14 16:22 | disposition left against medical advice (07) ==
LOC: ED 12:44
DX: F41.9 Anxiety disorder, unspecified (principal); F31.9 Bipolar disorder, unspecified; K21.9 Gastro-esophageal reflux disease without esophagitis; E03.9 Hypothyroidism, unspecified; M19.90 Unspecified osteoarthritis, unspecified site; G89.29 Other chronic pain; I11.0 Hypertensive heart disease with heart failure; I50.32 Chronic diastolic (congestive) heart failure; F17.200 Nicotine dependence, unspecified, uncomplicated; Z88.8 Allergy status to other drugs, medicaments and biological substances; Z88.6 Allergy status to analgesic agent

== ENCOUNTER 2018-04-20 09:45 | Inpatient (IN) | payer OTHER ==
[~2018-04-20] VITALS: Wt 68.0 kg
--- NOTE | ~2018-04-20 | EKG ---
[place], [place] ELECTROCARDIOGRAM REPORT NAME: ENEIDA LORENZ UNIT #: [id number] ROOM: 512 DOCTOR: DAVIS DRAFT REPORT BIRTHDATE: [birth year] [facility] Test Date: 2018-04-20 Test Time: 12:59:46 Pat Name: ENEIDA LORENZ Department: Room: 512 Gender: F Mine Manager: Tova North : 1965 Requested By: WILLOW RICO Order Number: [id number] Reading MD: Rayray Bernstein MD Measurements Intervals [place] Rate: 102 P: 61 AK: 181 QRS: 49 QRSD: 78 T: 56 QT: 362 QTc: 472 Interpretive Statements Sinus tachycardia Nonspecific T-wave abnormalities Compared to ECG 03/19/2018 17:04:55 No significant change Electronically Signed On 04-20-2018 18:25:38 PST by Rayray Bernstein MD CM:EKGRPT:ELECTROCARDIOGRAM REPORT 1259 1825 WILLOW PRIETO DRAFT REPORT WILLOW RICO DO
--- NOTE | ~2018-04-20 | EKG ---
[place], [place] ELECTROCARDIOGRAM REPORT NAME: ENEIDA LORENZ UNIT #: [id number] ROOM: 512 DOCTOR: DAVIS DRAFT REPORT BIRTHDATE: [birth year] [facility] Test Date: 2018-04-20 Test Time: 15:48:52 Pat Name: ENEIDA LORENZ Department: Room: 512 Gender: F Engineer Second Assistant: CHRISTINE : 1965 Requested By: WILLOW RICO Order Number: [id number] Reading MD: Rayray Bernstein MD Measurements Intervals [place] Rate: 102 P: 67 AR: 179 QRS: 46 QRSD: 81 T: 69 QT: 371 QTc: 484 Interpretive Statements Sinus tachycardia Nonspecific ST-T changes No change from earlier ECG this date Electronically Signed On 04-20-2018 18:28:53 PST by Rayray Brenstein MD CM:EKGRPT:ELECTROCARDIOGRAM REPORT 1548 1828 WILLOW PRIETO DRAFT REPORT WILLOW RICO DO
--- NOTE | ~2018-04-20 | PR ---
[place], [place] PROGRESS NOTE NAME: ENEIDA LORENZ [facility] #: [id number] UNIT #: [id number] ROOM: 512 DOCTOR: FROILAN SLOAN MD BIRTHDATE: [birth year] DOS: 04/21/2018 This patient was admitted with chest pain and pressure-like feeling in the chest. She ruled out for acute myocardial infarction and a Lexiscan Cardiolite study was performed today. This demonstrated a moderate sized defect in the entire anterior wall and the anteroapical area with almost normalization of the resting images and myocardial ischemia involving the left anterior descending artery. I discussed the findings with the patient, pointed out the risks and the benefits including CVA, DC, , hematoma, vascular injury and renal insufficiency and possible bleeding. She understands and would like to proceed. The patient will be transferred to [facility] tomorrow morning for a diagnostic heart catheterization. If any intervention is necessary, it would be done at that time. The patient understands the procedure to some extent and also understand complication. FROILAN SLOAN MD CM:PNTRANS 03 49 FROILAN SLOAN MD 04/21/181948 interface
--- NOTE | ~2018-04-20 | CON ---
[place], [place] REPORT OF CONSULTATION NAME: ENEIDA LORENZ [facility] #: [id number] UNIT #: [id number] ROOM: 512 DOCTOR: RASHID UGALDE MDHISH BIRTHDATE: [birth year] DOS: 04/20/2018 I am covering for Dr. Adams who was the primary real estate financial analyst was consulted. HISTORY OF PRESENT ILLNESS: The patient is a 52-year-old female who had been admitted multiple times has chronic atrophic gastritis, multiple recent hospital admissions complaints of chest discomfort and complained of pain all over the body. The last test I saw in the chart here is 2016 was normal with a normal ejection fraction. No acute EKG changes suggestion of myocardial ischemia or infarction. The patient reports a history of heavy alcohol consumption and also heavy tobacco abuse. The patient's chest x-ray showed no acute process. Multiple hospital admissions. She did have positive blood cultures recently with Enterococcus, treated with IV antibiotics and also, has a laceration. She had seizures and being treated for that also. PAST MEDICAL HISTORY: Ascites, bipolar disorder, chronic pain, chronic diastolic heart failure, cirrhosis, delirium, gastritis, hepatitis C, hyponatremia, hypothyroidism, protein-calorie malnutrition, urinary tract infection. PAST SURGICAL HISTORY: Surgery of upper extremity. SOCIAL HISTORY: Positive for alcohol abuse. REVIEW OF SYSTEMS: Chronic pain. Complains of chest pain. Complains of shortness of breath, no nausea, no vomiting, no syncope. HOME MEDICATIONS: Lactulose, magnesium, oxycodone, spironolactone, acetaminophen. PHYSICAL EXAMINATION: VITAL SIGNS: Blood pressure is 140/90. She is in sinus rhythm. HEENT: Unremarkable. NECK: Supple, no JVD. LUNGS: Clear. HEART: Sounds are regular. NEUROLOGIC: Stable. Troponins have been negative. LABORATORY DATA: Electrolytes: Potassium was 2.4, which has been supplemented. C-reactive protein is negative. D-dimer is slightly elevated. EKG shows sinus tachycardia with nonspecific ST-T changes. IMPRESSION: The patient with chronic pain with atypical chest discomfort. History of cirrhosis, hypertension. RECOMMENDATIONS: Continue with the present medications. Continue with the spironolactone. Supplement the potassium. The patient is already on loxapine. The patient has been scheduled for a stress test by Dr. Jackson and further management will depend upon the stress findings. [place], [place] REPORT OF CONSULTATION NAME: ENEIDA LORENZ UNIT #: [id number] ROOM: 512 DOCTOR: SELVIN UGALDE MD BIRTHDATE: [birth year] SELVIN UGALDE MD CM:CONSTR:REPORT OF CONSULTATION 1652 04/21/18 0355 interface
--- NOTE | ~2018-04-20 | EKG ---
[place], [place] ELECTROCARDIOGRAM REPORT NAME: ENEIDA LORENZ UNIT #: [id number] ROOM: 512 DOCTOR: DAVIS DRAFT REPORT BIRTHDATE: [birth year] [facility] Test Date: 2018-04-20 Test Time: 09:48:36 Pat Name: ENEIDA LORENZ Department: Room: 512 Gender: F Road Contractor: Tova North : 1965 Requested By: WILLOW RICO Order Number: [id number] Reading MD: Rayray Bernstein MD Measurements Intervals [place] Rate: 106 P: 85 DC: 183 QRS: 55 QRSD: 74 T: 226 QT: 297 QTc: 395 Interpretive Statements Sinus tachycardia Nonspecific T abnormalities, diffuse leads Compared to ECG 03/19/2018 17:04:55 T-wave abnormality now present Sinus rhythm no longer present Electronically Signed On 04-20-2018 18:20:07 PST by Rayray Bernstein MD CM:EKGRPT:ELECTROCARDIOGRAM REPORT 1820 WILLOW PRIETO DRAFT REPORT WILLOW RICO DO
--- NOTE | ~2018-04-20 | CON ---
[place], [place] REPORT OF CONSULTATION NAME: ENEIDA LORENZ [facility] #: [id number] UNIT #: [id number] ROOM: 512 DOCTOR: PHD SHILPA TRANG BIRTHDATE: [birth year] DOS: 04/21/2018 HISTORY OF PRESENT ILLNESS: The patient is a 52-year-old female referred by Dr. Jackson for competency evaluation. At the present time, the patient is on the 5th floor at [facility]. She is a resident at [facility]. She was evaluated during her hospitalization here in March and was deemed to be incompetent due to significant confusion. She has a significant alcohol history, consuming two-fifths a day of liquor for 30 years, having quit 3 months ago. She also smoked a pack a day of cigarettes since she was 13 and quit 4 months ago. She endorsed remote drug use during her teens. She is a and has a boyfriend whom she describes as supportive. She also has 3 children. PAST MEDICAL HISTORY: SCDs due to alcohol cirrhosis, bacteremia, bipolar disorder, chronic alcohol dependence, chronic atrophic gastritis, chronic diastolic congestive heart failure, chronic pain, cirrhosis, colitis, delirium tremens, elevated C-reactive protein, essential hypertension, folate deficiency, clavicle fracture, generalized anxiety disorder, GERD, hepatic encephalopathy, hepatitis C, forearm fracture, hyperbilirubinemia, hyponatremia, hypophosphatemia, hypothyroid, leukocytosis, osteoarthritis, rectal prolapse, seizure, severe protein-calorie malnutrition, severe sepsis, tachypnea, thrombocytopenia, UTI, vitamin D deficiency. MEDICATIONS: K-Dur, folic acid, Lovenox, Synthroid, Neurontin, Sinequan, Aldactone, Cephulac, Lasix, Lopressor, Prilosec, DuoNeb, Wellbutrin-SR, Dulcolax, Bactroban, Roxicodone, Restoril. PHYSICAL EXAMINATION: The patient was lying in bed in mild distress, having just received pain medication for her right arm. She was oriented to person, place and time. She could not name the current president, but could name the past president. She did not need any current events. Eye contact and social skills were appropriate. Affect was restricted in range and mood was anxious. The patient denied suicidal and homicidal ideation, plan, and intent. Speech was within normal limits with respect to the rhythm, rate, volume and tone. Thought process was at times circumstantial. Thought content appeared within normal limits. Insight and judgment were fair. The patient was able to discuss several medical conditions and discuss medications that she takes. She states that she is happy at [facility] and that is where she needs to be given her medical conditions. The patient earned a 20/29 on the Alfredito Cognitive assessment with an intact score being 26. [employer] cube copy was not given due to the patient's difficulty writing with her dominant hand. She completed a clock drawing with her left hand and gave verbal instructions for mini trails B. On mini trails B, she demonstrated confusion, was not able to complete the task verbally. Clock drawing was noteworthy for incomplete hand placement. On test of attention, she was able to perform a minimum of 5 digits forward and three digits backward. She made a few errors of omission on a test of vigilance and made one correct serial 7 subtractions. With respect to language ability, she was able to repeat both sentences correctly and produced 11 words in one minute on a test of verbal fluency. Verbal abstraction was concrete. Naming was intact. On a test of memory, the patient was able to recall 5/5 words on both immediate recall trials. After a brief delay, the [place], [place] REPORT OF CONSULTATION NAME: ENEIDA LORENZ UNIT #: [id number] ROOM: [facility] DOCTOR: PHD TRANG HENNESSY BIRTHDATE: [birth year] patient was able to recall 1/5 words. Performance: With category cue, she was able to recall one additional word and with multiple choice, she was able to recall 3 additional words. Overall, the patient has demonstrated significant improvement from her last hospitalization with respect to her cognitive abilities. She demonstrated some difficulties with executive functioning, attention and memory, but at this point in time in my opinion, she does appear to be competent to make her own medical decisions. I discussed the case with Dr. Jackson. The patient appears competent to request that her status be switched to DNR comfort care arrest. DIAGNOSIS: Unspecified neurocognitive disorder, alcohol use disorder, bipolar 1 disorder. RECOMMENDATIONS: In my opinion, the patient is competent to make informed health care decisions including switching her status to DNR comfort care arrest, as discussed with Dr. Jackson. Thank you very much for this consult. Zully Hennessy, PhD CM:CONSTR:REPORT OF CONSULTATION 1027 04/22/18 0827 interface
[2018-04-20 09:45] VITALS: BP 134/76
[2018-04-20 10:07] LABS: BASO % 0.5 % (0.0-1.0); EOS % 0.9 % (1.0-4.0); HEMATOCRIT 38.1 % (37.0-47.0); HEMOGLOBIN 11.9 g/dl (12.0-16.0); LYMPH # 1.3 10*3/uL (1.3-4.4); LYMPH % 30.1 % (27.0-41.0); MEAN CELL VOLUME 98.7 fl (81.0-99.0); MEAN CORPUSCULAR HGB 30.8 pg (27.0-31.0); MEAN CORPUSCULAR HGB CONC 31.2 g/dl (33.0-37.0); MEAN PLATELET VOLUME 10.3 fl (9.6-12.3); MONO # 0.3 10*3/uL (0.1-1.0); MONO % 6.6 % (3.0-9.0); NEUT # 2.6 10*3/uL (2.3-7.9); NEUT % 61.7 % (47.0-73.0); PLATELET COUNT AUTOMATED 113 10*3/uL (130-400); RED BLOOD COUNT 3.86 10*6/uL (4.10-5.10); RED CELL DISTRI WIDTH 14.6 % (0-14.5); WHITE BLOOD COUNT 4.3 10*3/uL (4.8-10.8)
[2018-04-20 10:17] LABS: ACT PARTIAL THROMBO TIME 27.9 SECONDS (20.8-31.5); INTERNATIONAL NORM RATIO 1.1 (2.0-3.5)
[2018-04-20 10:27] LABS: ALBUMIN 2.6 gm/dl (3.1-4.5); ALKALINE PHOSPHATASE 179 U/L (45-117); BUN 5 mg/dl (7-24); CHLORIDE 101 mmol/L (98-107); CREATININE 1.04 mg/dL (0.55-1.02); SGOT/AST 39 IU/L (3-35); SGPT/ALT 18 U/L (12-78); SODIUM 136 mmol/L (136-145); TOTAL PROTEIN 6.9 gm/dL (6.4-8.2)
[2018-04-20 10:34] LABS: TROPONIN I < 0.015 ng/ml (<0.045)
[2018-04-20 10:35] LABS: POTASSIUM 2.4 mmol/L (3.5-5.1)
[2018-04-20 11:08] VITALS: BP 133/92
[2018-04-20 11:30] VITALS: BP 141/97
[2018-04-20 15:30] LABS: BILIRUBIN NEGATIVE (NEGATIVE); BLOOD NEGATIVE (NEGATIVE); CLARITY CLEAR (CLEAR); COLOR YELLOW (YELLOW); GLUCOSE NEGATIVE (NEGATIVE); KETONE NEGATIVE (NEGATIVE); LEUKO ESTERASE 1+ (NEGATIVE); NITRITE NEGATIVE (NEGATIVE); SPECIFIC GRAVITY 1.015 (1.005-1.030); UROBILINOGEN 0.2 E.U./dl (0.2-1.0)
[2018-04-20] MEDS ORDERED: ATIVAN0.5 MG PO (15:32)
[2018-04-20] MEDS ORDERED: DULCOLAX10 M1 R (15:34)
[2018-04-20] MEDS ORDERED: NEURONTIN100 MG PO (15:36)
[2018-04-20] MEDS ORDERED: MAGNESIUM400 M1 PO (15:39)
[2018-04-20] MEDS ORDERED: MILK OF MA400 MG/51 PO (15:40)
[2018-04-20] MEDS ORDERED: XIFAXAN200 M1 PO (15:42)
[2018-04-20 15:53] LABS: BACTERIA 2+; RBC 0-2 rbc/hpf (0-2); WBC 31-40 wbc/hpf (0-5)
[2018-04-20 16:00] VITALS: BP 113/70
[2018-04-20 16:43] LABS: BUN 4 mg/dl (7-24); CHLORIDE 108 mmol/L (98-107); CREATININE 0.86 mg/dL (0.55-1.02); POTASSIUM 2.9 mmol/L (3.5-5.1); SODIUM 142 mmol/L (136-145)
[2018-04-20 20:00] VITALS: BP 158/88
[2018-04-21] VITALS: BP 149/66
[2018-04-21 07:39] LABS: BASO % 0.6 % (0.0-1.0); EOS # 0.1 10*3/uL (0.0-0.4); EOS % 1.6 % (1.0-4.0); HEMATOCRIT 33.2 % (37.0-47.0); HEMOGLOBIN 10.1 g/dl (12.0-16.0); LYMPH # 1.2 10*3/uL (1.3-4.4); LYMPH % 37.9 % (27.0-41.0); MEAN CELL VOLUME 99.4 fl (81.0-99.0); MEAN CORPUSCULAR HGB 30.2 pg (27.0-31.0); MEAN CORPUSCULAR HGB CONC 30.4 g/dl (33.0-37.0); MEAN PLATELET VOLUME 9.8 fl (9.6-12.3); MONO # 0.3 10*3/uL (0.1-1.0); MONO % 8.2 % (3.0-9.0); NEUT # 1.6 10*3/uL (2.3-7.9); NEUT % 51.7 % (47.0-73.0); PLATELET COUNT AUTOMATED 81 10*3/uL (130-400); RED BLOOD COUNT 3.34 10*6/uL (4.10-5.10); RED CELL DISTRI WIDTH 14.6 % (0-14.5); WHITE BLOOD COUNT 3.2 10*3/uL (4.8-10.8)
[2018-04-21 08:04] LABS: ALBUMIN 2.3 gm/dl (3.1-4.5); ALKALINE PHOSPHATASE 147 U/L (45-117); BUN 3 mg/dl (7-24); CHLORIDE 111 mmol/L (98-107); CHOLESTEROL 128 mg/dL (<200); CREATININE 0.68 mg/dL (0.55-1.02); FREE T4 1.35 ng/dl (0.76-1.46); HDL CHOLESTEROL 48 mg/dl (40-60); LDL CHOLESTEROL 62 mg/dL (9-159); POTASSIUM 2.7 mmol/L (3.5-5.1); SGOT/AST 29 IU/L (3-35); SGPT/ALT 14 U/L (12-78); SODIUM 143 mmol/L (136-145); TOTAL PROTEIN 5.6 gm/dL (6.4-8.2); TRIGLYCERIDES 89 mg/dl (<150); VLDL CHOLESTEROL 18 mg/dL (6-40)
[2018-04-21 08:31] LABS: VITAMIN D, 25-HYDROXY 18.5 ng/mL (30-100)
[2018-04-21 12:00] VITALS: BP 130/81
[2018-04-21 16:00] VITALS: BP 132/70
[2018-04-21 20:00] VITALS: BP 128/87
[2018-04-22] VITALS: BP 133/79
[2018-04-22 06:28] LABS: BASO % 0.7 % (0.0-1.0); EOS # 0.1 10*3/uL (0.0-0.4); EOS % 1.6 % (1.0-4.0); HEMATOCRIT 37.1 % (37.0-47.0); HEMOGLOBIN 11.4 g/dl (12.0-16.0); LYMPH # 2.2 10*3/uL (1.3-4.4); LYMPH % 35.1 % (27.0-41.0); MEAN CELL VOLUME 98.1 fl (81.0-99.0); MEAN CORPUSCULAR HGB 30.2 pg (27.0-31.0); MEAN CORPUSCULAR HGB CONC 30.7 g/dl (33.0-37.0); MEAN PLATELET VOLUME 10.4 fl (9.6-12.3); MONO # 0.5 10*3/uL (0.1-1.0); MONO % 7.8 % (3.0-9.0); NEUT # 3.3 10*3/uL (2.3-7.9); NEUT % 54.5 % (47.0-73.0); PLATELET COUNT AUTOMATED 102 10*3/uL (130-400); RED BLOOD COUNT 3.78 10*6/uL (4.10-5.10); RED CELL DISTRI WIDTH 14.6 % (0-14.5); WHITE BLOOD COUNT 6.1 10*3/uL (4.8-10.8)
[2018-04-22 06:32] LABS: BUN 3 mg/dl (7-24); CHLORIDE 108 mmol/L (98-107); CREATININE 0.79 mg/dL (0.55-1.02); POTASSIUM 2.9 mmol/L (3.5-5.1); SODIUM 140 mmol/L (136-145)
== END 2018-04-22 08:47 | disposition other institution (70) | DRG 313 ==
LOC: ED 09:45 → 5E 11:12 → EDHOLD 11:12 → 5E 11:33
PROVIDERS: Emergency Medicine; Internal Medicine; Nurse Practitioner Family; Student in an Organized Health Care Education/Training Program
DX: R07.9 Chest pain, unspecified (principal); E43 Unspecified severe protein-calorie malnutrition; E87.2 Acidosis; D61.818 Other pancytopenia; R78.81 Bacteremia; E72.20 Disorder of urea cycle metabolism, unspecified; I50.32 Chronic diastolic (congestive) heart failure; K29.40 Chronic atrophic gastritis without bleeding; E87.6 Hypokalemia; F41.9 Anxiety disorder, unspecified; R16.1 Splenomegaly, not elsewhere classified; Z66 Do not resuscitate; K72.90 Hepatic failure, unspecified without coma; F31.9 Bipolar disorder, unspecified; K70.30 Alcoholic cirrhosis of liver without ascites; I11.0 Hypertensive heart disease with heart failure; G89.29 Other chronic pain; F41.1 Generalized anxiety disorder; E03.9 Hypothyroidism, unspecified; M19.90 Unspecified osteoarthritis, unspecified site; F10.20 Alcohol dependence, uncomplicated; Z51.5 Encounter for palliative care; K21.9 Gastro-esophageal reflux disease without esophagitis; R41.9 Unspecified symptoms and signs involving cognitive functions and awareness; S00.00XA Unspecified superficial injury of scalp, initial encounter; G40.909 Epilepsy, unspecified, not intractable, without status epilepticus; Z86.14 Personal history of Methicillin resistant Staphylococcus aureus infection; Z87.891 Personal history of nicotine dependence; Z88.8 Allergy status to other drugs, medicaments and biological substances; Z88.6 Allergy status to analgesic agent; Z82.49 Family history of ischemic heart disease and other diseases of the circulatory system; Z81.8 Family history of other mental and behavioral disorders; Z87.440 Personal history of urinary (tract) infections; Z87.81 Personal history of (healed) traumatic fracture; Z79.899 Other long term (current) drug therapy; W18.39XA Other fall on same level, initial encounter; Y93.89 Activity, other specified; Y92.89 Other specified places as the place of occurrence of the external cause; Y99.8 Other external cause status; Z68.25 Body mass index [BMI] 25.0-25.9, adult

== ENCOUNTER 2018-05-02 08:22 | Emergency (ER) | payer OTHER ==
[~2018-05-02 08:22] MED LIST changes: +ATIVAN0.5 MG PO; +DULCOLAX10 M1 R; +MAGNESIUM400 M1 PO; +MILK OF MA400 MG/51 PO; +NEURONTIN100 MG PO; +XIFAXAN200 M1 PO
[2018-05-02 09:16] VITALS: BP 136/68
[2018-05-02 09:59] LABS: BASO % 0.6 % (0.0-1.0); EOS % 0.8 % (1.0-4.0); HEMATOCRIT 33.1 % (37.0-47.0); LYMPH # 1.2 10*3/uL (1.3-4.4); MEAN CELL VOLUME 93.8 fl (81.0-99.0); MEAN CORPUSCULAR HGB 31.2 pg (27.0-31.0); MEAN CORPUSCULAR HGB CONC 33.2 g/dl (33.0-37.0); MEAN PLATELET VOLUME 9.8 fl (9.6-12.3); MONO # 0.4 10*3/uL (0.1-1.0); MONO % 7.7 % (3.0-9.0); NEUT # 3.7 10*3/uL (2.3-7.9); NEUT % 68.7 % (47.0-73.0); PLATELET COUNT AUTOMATED 87 10*3/uL (130-400); RED BLOOD COUNT 3.53 10*6/uL (4.10-5.10); WHITE BLOOD COUNT 5.3 10*3/uL (4.8-10.8)
[2018-05-02 10:10] LABS: ACT PARTIAL THROMBO TIME 27.5 SECONDS (20.8-31.5); INTERNATIONAL NORM RATIO 1.2 (2.0-3.5)
[2018-05-02 10:16] LABS: ALBUMIN 2.5 gm/dl (3.1-4.5); ALKALINE PHOSPHATASE 271 U/L (45-117); BUN 5 mg/dl (7-24); CHLORIDE 101 mmol/L (98-107); CREATININE 0.78 mg/dL (0.55-1.02); POTASSIUM 2.6 mmol/L (3.5-5.1); SGOT/AST 40 IU/L (3-35); SGPT/ALT 15 U/L (12-78); SODIUM 136 mmol/L (136-145); TOTAL PROTEIN 6.1 gm/dL (6.4-8.2)
[2018-05-02] MEDS ORDERED: VIBRAMYCIN100 MG PO (10:52)
== END 2018-05-02 11:18 | disposition home or self-care (01) ==
LOC: ED 08:22
PROVIDERS: Emergency Medicine
DX: J20.9 Acute bronchitis, unspecified (principal); D69.6 Thrombocytopenia, unspecified; I11.0 Hypertensive heart disease with heart failure; I50.32 Chronic diastolic (congestive) heart failure; K21.9 Gastro-esophageal reflux disease without esophagitis; E03.9 Hypothyroidism, unspecified; I25.2 Old myocardial infarction; G40.909 Epilepsy, unspecified, not intractable, without status epilepticus; Z88.5 Allergy status to narcotic agent; Z88.8 Allergy status to other drugs, medicaments and biological substances; Z88.6 Allergy status to analgesic agent; Z79.899 Other long term (current) drug therapy; Z87.891 Personal history of nicotine dependence

== ENCOUNTER 2018-05-09 10:34 | Inpatient (IN) | payer OTHER ==
[~2018-05-09] VITALS: Ht 162.5 cm; Wt 74.9 kg
--- NOTE | ~2018-05-09 | PR ---
[place], [place] PROGRESS NOTE NAME: ENEIDA LORENZ [facility] #: [id number] UNIT #: [id number] ROOM: 409 DOCTOR: KEN YOUNG MDJANUSZRONALD BIRTHDATE: [birth year] DOS: 05/11/2018 GASTROENDOSCOPIC REPORT HISTORY OF PRESENT ILLNESS: This is a 52-year-old patient who has presented with chief complaint of increased abdominal girth, falling episode, sustaining multiple superficial hematomas particularly under mandible and superficial hematomas on skin. She underwent paracentesis today, greater than 3300 mL of ascites fluid was taken out and catheter unfortunately has been removed. She has had some relief of abdominal distress and distention sensation and shortness of breath is significantly less and she is jollier because of that and more energetic. However, her history is consistent with aggressive alcohol consumer and she is not denying it. She is consuming a bottle of vodka per day and she has now suddenly seen the light and wants to stop alcohol entirely. PAST MEDICAL HISTORY: Associated with systemic hypertension, hepatitis C in addition, non-STEMI myocardial infarction, and all the sequelae of liver disease of end stage character. PAST SURGICAL HISTORY: Minor surgery. REVIEW OF SYSTEMS: HEENT: Denies double vision or blurred vision. RESPIRATORY: Denies acute shortness of breath. CARDIOVASCULAR: Denies acute chest pain. DIGESTIVE SYSTEM: No hematemesis, no hematochezia. There is ascites formation. PHYSICAL EXAMINATION: VITAL SIGNS: Stable. HEENT: Within normal limits. NECK: Supple. No thyromegaly, no cervical lymphadenopathy. CHEST: Symmetric anatomy, equal expansion. Decreased air entry anteriorly auscultated. No wheezes. HEART: Normal sinus rhythm. No gallop, no murmur. ABDOMEN: Obese, simulating 9 months' even at the present time after removal of approximately a gallon of ascites from her. Otherwise, bowel sound is present. EXTREMITIES: No cyanosis, no pedal edema. There is deformity of arthritic changes in upper extremity noticed. Subcutaneous hematomas in upper extremity was noticed. Lower extremities, there is no edema, there is no cyanosis, no pedal edema. NEUROLOGICAL: She is not encephalopathic. She is not showing asterixis, and neurologically, fully alert and oriented. IMPRESSION AND PLAN: Cirrhosis with sequelae of the disease, thrombocytopenia, elevated serum ammonia level initially under the influence of lactulose, ascites, status post paracentesis. Most likely, she has also evidence of portal hypertension and esophageal varicosity that can be addressed upon endoscopic evaluation perhaps by Wednesday after she is completely detoxed. If we do another paracentesis tomorrow, we are going to make sure that we have Gram stain [place], [place] PROGRESS NOTE NAME: ENEIDA LORENZ UNIT #: [id number] ROOM: 409 DOCTOR: HECTOR LEONARD,REBECA BIRTHDATE: [birth year] availability after the fluid is removed and culture also to be considered. Otherwise, as far as the pain is concerned, she is expressing lower back pain, she is already on Percocet twice a day and we are going to consider lumbar x-rays to document degenerative joint disease of lower back and justifying, due to her pain, increasing of her Percocet at least while she is here. Workup is in progress. Other adjunctive diagnoses as already dictated in consultation. REBECA YOUNG MD CM:PNLISSET 1625 0056 REBECA YOUNG MD 05/12/18 0057 interface
--- NOTE | ~2018-05-09 | O ---
[place], [place] OPERATIVE NOTE NAME: [id number] UNIT #: [id number] ROOM: 409 DOCTOR: REBECA YOUNG MD BIRTHDATE: [birth year] DOS: 05/13/2018 GASTROENDOSCOPIC REPORT INDICATIONS: A 52-year-old patient who has presented with chief complaint of epigastric distress and abdominal pain. The patient with aggressive alcohol consumption behavior, cirrhosis, ascites, and status post paracentesis. PROCEDURE: Today's procedure part of investigation is panendoscopy plus biopsy. PREMEDICATION: Propofol. SCOPE: Olympus forward-viewing gastroscope Q10 video. REPORT: After putting the patient in left lateral position and application of lubricant to the scope, the scope was introduced. Thereafter, under direct visualization, advanced through the length of esophagus without difficulty. Diffuse distal esophageal ulcerations were identified, photographed. A small hiatal hernia noticed. Gastric pouch was entered. Gastritis was seen. Duodenal bulb, second and third part within normal limits. The patient was gradually extubated and tolerated the procedure well. I did not see any gross esophageal varicosities. IMPRESSION: Diffuse distal esophageal ulceration extending to thoracic esophagus. Small hiatal hernia, alcoholic gastritis, status post biopsy. PLAN AND DISCUSSION: Aggressive ulcer therapy with Protonix 40 mg b.i.d., Carafate slurry 2 grams q.i.d. 2 hours before meals and at bedtime, antireflux measures, gastroesophageal reflux disease diet and abstinence from alcohol. REBECA YOUNG MD CM:OPRECORD:OPERATIVE NOTE 44 33 REBECA YOUNG MD 05/13/181934 interface
--- NOTE | ~2018-05-09 | EKG ---
[place], [place] ELECTROCARDIOGRAM REPORT NAME: ENEIDA LORENZ UNIT #: [id number] ROOM: 409 DOCTOR: DAVIS DRAFT REPORT BIRTHDATE: [birth year] [facility] Test Date: 2018-05-09 Test Time: 16:21:41 Pat Name: ENEIDA LORENZ Department: Room: [facility] Gender: F Licensed Master Social Worker: Maya Llanos : 1965 Requested By: LYNN WOLFF Order Number: [id number] Reading MD: Rayray Bernstein MD Measurements Intervals [place] Rate: 96 P: 60 [place]: 175 QRS: 37 QRSD: 80 T: 52 QT: 373 QTc: 472 Interpretive Statements Sinus rhythm Anterior infarct, old Compared to ECG 04/20/2018 15:48:52 Myocardial infarct finding now present Sinus tachycardia no longer present ST (T wave) deviation no longer present Electronically Signed On 05-10-2018 16:55:20 PST by Rayray Bernstein MD CM:EKGRPT:ELECTROCARDIOGRAM REPORT 1621 1655 LYNN WOLFF MD EPIPHANY DRAFT REPORT LYNN WOLFF MD
--- NOTE | ~2018-05-09 | EKG ---
[place], [place] ELECTROCARDIOGRAM REPORT NAME: ENEIDA LORENZ UNIT #: [id number] ROOM: 409 DOCTOR: DAVIS DRAFT REPORT BIRTHDATE: [birth year] [facility] [place] [facility] Test Date: 2018-05-09 Test Time: 13:23:29 Pat Name: ENEIDA LORENZ Department: Room: [facility] Gender: F Petroleum Inspector: Tova North : 1965 Requested By: LYNN WOLFF Order Number: [id number] Reading MD: Rayray Bernstein MD Measurements Intervals [place] Rate: 94 P: 48 TN: 169 QRS: 30 QRSD: 77 T: 57 QT: 361 QTc: 452 Interpretive Statements Sinus rhythm Low voltage, precordial leads Abnormal R-wave progression, early transition No change from earlier ECG this date Electronically Signed On 05-09-2018 15:10:52 PST by Rayray Bernstein MD CM:EKGRPT:ELECTROCARDIOGRAM REPORT 1323 1510 LYNN CANNON DRAFT REPORT LYNN WOLFF MD
--- NOTE | ~2018-05-09 | EKG ---
[place], [place] ELECTROCARDIOGRAM REPORT NAME: ENEIDA LORENZ UNIT #: [id number] ROOM: 409 DOCTOR: DAVIS DRAFT REPORT BIRTHDATE: [birth year] [facility] Test Date: 2018-05-11 Test Time: 10:45:22 Pat Name: ENEIDA LORENZ Department: Room: 409 1 Gender: F Global Account Manager: Tova North : 1965 Requested By: JV ROCHA Order Number: [id number] Reading MD: Rayray Bernstein MD Measurements Intervals [place] Rate: 86 P: 69 [place]: 176 QRS: 42 QRSD: 80 T: 49 QT: 362 QTc: 433 Interpretive Statements Sinus rhythm Low voltage, precordial leads Baseline wander in lead(s) V3,V4,V5,V6 Compared to ECG 05/09/2018 16:21:41 No significant change Electronically Signed On 05-11-2018 11:09:22 PST by Rayray Bernstein MD CM:EKGRPT:ELECTROCARDIOGRAM REPORT 1045 1109 JV ROCHA EPIPHANY DRAFT REPORT JV ROCHA
--- NOTE | ~2018-05-09 | CON ---
[place], [place] REPORT OF CONSULTATION NAME: [facility]IDA [facility]ORENZ [facility] [id number] UNIT #: [id number] ROOM: 409 DOCTOR: SHILPA PHD TRANG BIRTHDATE: [birth year] DOS: 05/12/2018 HISTORY OF PRESENT ILLNESS: The patient is a 52-year-old female referred by the hospitalist with concerns for anxiety. At the present time, she is on the 4th floor at [facility]. The patient had been living at a longterm, but now she is living in an apartment by herself. She has a significant alcohol history, consuming two fifth of liquor per day for 30 years. She states that her last drink was 1 month ago. She also recently quit smoking cigarettes. She denied drug use. The patient is a and has three children. PAST MEDICAL HISTORY: Anxiety, ascites due to alcoholic cirrhosis, bipolar disorder, chronic alcohol dependence, chronic atrophic gastritis, chronic diastolic congestive heart failure, chronic pain, cirrhosis, delirium tremens, essential hypertension, folate deficiency clavicle fracture, generalized anxiety disorder, GERD, hepatitis C, forearm fracture, hypothyroid, NSTEMI, osteoarthritis, pancytopenia, rectal prolapse, seizure disorder, severe protein-calorie malnutrition, thrombocytopenia, and vitamin D deficiency. MEDICATIONS: Vitamin D, Lioresal, Sinequan, Neurontin, Cephulac, K-Dur, folic acid, Synthroid, Aldactone, Lasix, Lopressor, Prilosec, DuoNeb, Wellbutrin SR, Zofran, and Percocet. PHYSICAL EXAMINATION: The patient was awake, alert and oriented to person, place and generally to time. She was lying in bed in no apparent distress. Eye contact and social skills were appropriate. The patient was pleasant and cooperative. Mood was anxious about her health status. She denied suicidal and homicidal ideation, plan, and intent. She reports symptoms of excessive worry, shaking, racing thoughts, dizziness, trouble falling and staying asleep. Affect was restricted in range. Speech was within normal limits with respect to rhythm, rate, volume and tone. Expressive and receptive language appeared within normal limits on a conversational basis. Thought process was circumstantial. She repeated herself many times during the evaluation. Thought content was negative for apparent hallucinations and delusions. She complains of memory issues. Insight and judgment appeared fair. DIAGNOSES: Unspecified neurocognitive disorder, alcohol use disorder, bipolar 1 disorder, generalized anxiety disorder. RECOMMENDATIONS: I consulted with Dr. Huddleston about the patient's medications. He suggested adding Vistaril 25-50 mg t.i.d. He also stated considering discontinuing Sinequan due to the patient's hepatic issues. She states that she is engaged in treatment at Dr. Friedman's office and has a bilingual case manager there as well. She did, however, acknowledge poor adherence to her medication regimen. Thank you very much for this consult. [place], [place] REPORT OF CONSULTATION NAME: KELECHIENEIDA L UNIT #: [id number] ROOM: 409 DOCTOR: SHILPA, PHD TRANG BIRTHDATE: [birth year] Zully Hennessy, PhD CM:CONSTR:REPORT OF CONSULTATION 0958 05/18/18 0735 interface
--- NOTE | ~2018-05-09 | EKG ---
[place], [place] ELECTROCARDIOGRAM REPORT NAME: ENEIDA LORENZ UNIT #: [id number] ROOM: 409 DOCTOR: DAVIS DRAFT REPORT BIRTHDATE: [birth year] [facility] Test Date: 2018-05-09 Test Time: 10:39:05 Pat Name: ENEIDA LORENZ Department: Room: [facility] Gender: F Tower Supervisor: Tova [place] : 1965 Requested By: LYNN WOLFF Order Number: [id number] Reading MD: Rayray Bernstein MD Measurements Intervals [place] Rate: 120 P: 62 OR: 158 QRS: 34 QRSD: 71 T: QT: 301 QTc: 425 Interpretive Statements Sinus tachycardia Low voltage, precordial leads Compared to ECG 04/20/2018 15:48:52 Low QRS voltage now present ST (T wave) deviation no longer present Electronically Signed On 05-09-2018 15:09:01 PST by Rayray Bernstein MD CM:EKGRPT:ELECTROCARDIOGRAM REPORT [id number] LYNN CANNON DRAFT REPORT LYNN WOLFF MD
--- NOTE | ~2018-05-09 | CON ---
[place], [place] REPORT OF CONSULTATION NAME: ENEIDA LORENZ UNIT #: [id number] ROOM: 409 DOCTOR: REBECA YOUNG MD BIRTHDATE: [birth year] DOS: 05/13/2018 HISTORY OF PRESENT ILLNESS: This is a 52-year-old patient who has presented with a chief complaint of [facility]emesis from jail and we have been consulted for management and investigation. At the time of admission, white blood cell was 3.9, H and H 10 and 35. Her latest H and H has been again 10 and 35 today. Urine culture has been unremarkable. INR has been 1.5 with a PT/PTT of 16 and 33. Serum ammonia level has been 15. CBC differential has been repeatedly assessed. PAST MEDICAL HISTORY: Associated with congestive failure. Gastritis. DICTATION ENDS HERE REBECA YOUNG MD CM:CONSTR:REPORT OF CONSULTATION 14 05/14/18 0421 interface
--- NOTE | ~2018-05-09 | CON ---
[place], [place] REPORT OF CONSULTATION NAME: [id number] UNIT #: [id number] ROOM: 409 DOCTOR: REBECA YOUNG MD BIRTHDATE: [birth year] DOS: 05/09/2018 GASTROENDOSCOPIC REPORT HISTORY OF PRESENT ILLNESS: A 52-year-old patient who has been admitted with ascites and increased abdominal girth quite uncomfortable and she has a cirrhotic liver. She is trying to convince me that she has to stop drinking from New Year. She is drinking a bottle of vodka daily. She has been admitted through the Emergency Room for definitive management. White blood cell was 4.8, H and H of 11 and 36 with platelet of 145. INR was 1.4 with PT and PTT of 14.8 and 29.1 seconds respectively. Comprehensive metabolic panel, GFR greater than 60. Potassium of 3.3 and bilirubin 1.4, alkaline phosphatase 226. Troponins negative. Lactic acid 4.1. Chest x-ray, none inflated lungs, bilateral subsegmental atelectasis, lipase normal. CT scan of the head, no acute intracranial bleed and CT scan of the abdomen with no bowel obstruction, probable minor contusion in the superficial fat of the anterior abdominal wall. No hematoma, moderate large volume abdominal ascites, cirrhotic liver, splenomegaly all has been recognized. Serum ammonia was normal. She has been on Xifaxan and lactulose, but she has recently stopped Xifaxan at home. PAST MEDICAL HISTORY: Associated with bipolar disorder, alcohol-induced cirrhotic liver, essential hypertension, possible portal hypertension, hepatitis C in addition a non-STEMI myocardial infarction, rectal prolapse, borderline thrombocytopenia and intense ascites. PAST SURGICAL HISTORY: Minor operation. SOCIAL HISTORY: Up to recent smoker, up to recent alcohol consumer including a New Year and holidays and marijuana consumer. FAMILY HISTORY: Noncontributory. ALLERGIES: SOMA, TORADOL, SEROQUEL, ADDERALL, MORPHINE. MEDICATIONS: List has been reviewed. REVIEW OF SYSTEMS: HEENT: Denies double vision, blurred vision. RESPIRATORY: Denies acute shortness of breath. CARDIOVASCULAR: Denies acute chest pain. DIGESTIVE SYSTEM: No hematemesis, no hematochezia; however intense ascites. PHYSICAL EXAMINATION: VITAL SIGNS: Stable. Alert and oriented, not encephalopathic. HEENT: Evidence of submental hematoma, multiple small abrasion and hematomas all over her body. Otherwise, in addition to head and eyes: Pupils are round, reactive. Sclerae nonicteric. Mouth and buccal mucosa benign. NECK: Supple, no thyromegaly, no cervical lymphadenopathy. CHEST: Symmetric, in no wheeze. Decreased air entry in general. HEART: Normal sinus rhythm, no gallop, no murmur. [place], [place] REPORT OF CONSULTATION NAME: ENEIDA LORENZ UNIT #: [id number] ROOM: [facility] DOCTOR: REBECA YOUNG MD BIRTHDATE: [birth year] ABDOMEN: Obese, soft. No hepato-organomegaly. Evidence of intense ascites was noticed. Some venous engorgement. Bowel sounds present. EXTREMITIES: No cyanosis, no pedal edema. NEUROLOGIC: Fully alert, oriented to time, place, person at the present time. IMPRESSION: Cirrhotic liver secondary to alcohol and sequela of the above, most likely portal hypertension, ascites, borderline thrombocytopenia, history of hyperammonemia corrected under the effect of lactulose and Xifaxan. OTHER ADJUNCTIVE DIAGNOSES: As outlined above including borderline anemia. PLAN AND DISCUSSION: We are going to send her for paracentesis to dry tap and supportive infusion of salt poor albumin after the first 3 liters removed, one unit of albumin 100 mL per each 2 liters removed after the first initial 3 liters. Other adjunctive diagnoses are hepatitis C in addition to alcohol, diastolic congestive heart failure, protein-calorie malnutrition and hypothyroidism. REBECA YOUNG MD CM:CONSTR:REPORT OF CONSULTATION 1924 05/10/18 0426 interface
[~2018-05-09 10:34] MED LIST changes: +VIBRAMYCIN100 MG PO
[2018-05-09 10:55] VITALS: BP 130/98
[2018-05-09 10:55] LABS: BASO % 0.6 % (0.0-1.0); EOS % 0.4 % (1.0-4.0); HEMOGLOBIN 11.3 g/dl (12.0-16.0); LYMPH # 1.1 10*3/uL (1.3-4.4); LYMPH % 22.9 % (27.0-41.0); MEAN CELL VOLUME 94.5 fl (81.0-99.0); MEAN CORPUSCULAR HGB 29.7 pg (27.0-31.0); MEAN CORPUSCULAR HGB CONC 31.4 g/dl (33.0-37.0); MEAN PLATELET VOLUME 10.6 fl (9.6-12.3); MONO # 0.4 10*3/uL (0.1-1.0); MONO % 8.8 % (3.0-9.0); NEUT # 3.2 10*3/uL (2.3-7.9); NEUT % 67.1 % (47.0-73.0); PLATELET COUNT AUTOMATED 145 10*3/uL (130-400); RED BLOOD COUNT 3.81 10*6/uL (4.10-5.10); RED CELL DISTRI WIDTH 15.8 % (0-14.5); WHITE BLOOD COUNT 4.8 10*3/uL (4.8-10.8)
[2018-05-09 11:09] LABS: ACT PARTIAL THROMBO TIME 29.1 SECONDS (20.8-31.5); INTERNATIONAL NORM RATIO 1.4 (2.0-3.5)
[2018-05-09 11:13] LABS: ALBUMIN 2.3 gm/dl (3.1-4.5); ALKALINE PHOSPHATASE 226 U/L (45-117); BUN 10 mg/dl (7-24); CHLORIDE 96 mmol/L (98-107); CREATININE 0.98 mg/dL (0.55-1.02); POTASSIUM 3.3 mmol/L (3.5-5.1); SGOT/AST 34 IU/L (3-35); SGPT/ALT 14 U/L (12-78); SODIUM 135 mmol/L (136-145); TOTAL PROTEIN 5.9 gm/dL (6.4-8.2)
[2018-05-09 11:21] LABS: TROPONIN I < 0.015 ng/ml (<0.045)
[2018-05-09 11:26] LABS: LIPASE 81 U/L (73-393)
[2018-05-09 11:27] LABS: ETHYL ALCOHOL < 3.0 mg/dl (<3)
--- NOTE | 2018-05-09 13:38 | NUR ---
NILS DUGGAN NOTIFIED OF LATIC ACID LEVEL OF 3.1
[2018-05-09 13:54] VITALS: BP 126/89
--- NOTE | 2018-05-09 13:55 | NUR ---
PATIENT DENIES WANTING PICTURE TAKEN AT THIS TIME.
[2018-05-09 14:05] VITALS: BP 118/82
--- NOTE | 2018-05-09 14:05 | NUR ---
A 52, admitted to , under the services of SANDI Stover MD with a diagnosis of ASCITES, CHEST PAIN TO RULE OUT DC. Chief complaint is HEAD INJURY, ABDOMINAL DISTENTION, CHEST PAIN. Patient arrived via bed from ER. Monitor applied. Initial assessment completed. Vital signs taken and recorded. SANDI STOVER MD notified of admission to the unit. Orders received. See assessment for past medical history, medications and allergies. Patient and/or family oriented to unit. [facility] visitation policy reviewed. Clothing/patient valuable form completed. SAL ORANTES
[2018-05-09 14:30] VITALS: BP 118/81
--- NOTE | 2018-05-09 15:00 | NUR ---
PT REFUSING TO TAKE POTASSIUM MEDICATION AT THIS TIME. PT STATES THAT SHE WILL NOT DO ANYTHING UNTIL SHE IS GIVEN PAIN MEDICATION.
--- NOTE | 2018-05-09 15:40 | NUR ---
NOTIFIED PHYSICIAN THAT MED REC IS UP TO DATE PER THE PATIENT'S BEST KNOWLEDGE. PT STATES THAT SHE HAS NOT TAKEN A LOT OF HER MEDICATIONS IN A WHILE.
--- NOTE | 2018-05-09 16:30 | NUR ---
PT GIVEN PERCOCET 5-325MG PO AT THIS TIME FOR C/O GENERALIZED PAIN. PT TAKES POTASSIUM SUPPLEMENTS AT THIS TIME, WELL. WILL MONITOR FOR EFFECTIVENESS. CALL LIGHT IN REACH.
--- NOTE | 2018-05-09 16:36 | NUR ---
CRITICAL LACTIC ACID LEVEL OF 2.[address] ROCHA AT THIS TIME. AWAITING NEW ORDERS.
--- NOTE | 2018-05-09 16:44 | NUR ---
CONSULT CALLED TO DR. YOUNG PER PHYSICIAN ORDERS. PHYSICIAN STATES HE WILL BE IN TO SEE PT.
--- NOTE | 2018-05-09 17:25 | NUR ---
PT C/O CHEST PAIN AND IS CRYING OUT. DR. ROCHA MADE AWARE OF PT COMPLAINTS. NO NEW ORDERS GIVEN AT THIS TIME.
--- NOTE | 2018-05-09 17:43 | NUR ---
PERCOCET EFFECTIVE PER PT.
--- NOTE | 2018-05-09 19:45 | NUR ---
Patient is AAOX3 resting in bed with easy and regular respers on room air. Assessment is complete with no s/s of distress noted at this time. Patient is c/o abdominal pain rating a 10/10. Bed is low, locked, alarmed, and call light is within reach. See shift assessment.
[2018-05-09 20:00] VITALS: BP 124/79
--- NOTE | 2018-05-09 22:48 | NUR ---
Spoke with Dr. Ramos regarding continuation of home medications.
[2018-05-10] VITALS: BP 104/60
--- NOTE | 2018-05-10 05:40 | NUR ---
Spoke with Dr. Ramos regarding patient feeling jumpy and also reported patients cronic history of alcohol abuse. See new orders.
[2018-05-10 07:01] LABS: BASO % 0.5 % (0.0-1.0); EOS # 0.1 10*3/uL (0.0-0.4); EOS % 1.9 % (1.0-4.0); HEMATOCRIT 33.1 % (37.0-47.0); HEMOGLOBIN 10.2 g/dl (12.0-16.0); LYMPH # 1.8 10*3/uL (1.3-4.4); LYMPH % 41.7 % (27.0-41.0); MEAN CELL VOLUME 93.8 fl (81.0-99.0); MEAN CORPUSCULAR HGB 28.9 pg (27.0-31.0); MEAN CORPUSCULAR HGB CONC 30.8 g/dl (33.0-37.0); MEAN PLATELET VOLUME 10.9 fl (9.6-12.3); MONO # 0.5 10*3/uL (0.1-1.0); NEUT # 1.9 10*3/uL (2.3-7.9); NEUT % 44.7 % (47.0-73.0); PLATELET COUNT AUTOMATED 124 10*3/uL (130-400); RED BLOOD COUNT 3.53 10*6/uL (4.10-5.10); RED CELL DISTRI WIDTH 15.9 % (0-14.5); WHITE BLOOD COUNT 4.2 10*3/uL (4.8-10.8)
[2018-05-10 07:09] LABS: ALBUMIN 2.2 gm/dl (3.1-4.5); ALKALINE PHOSPHATASE 217 U/L (45-117); BUN 9 mg/dl (7-24); CHLORIDE 101 mmol/L (98-107); PHOSPHOROUS 3.5 mg/dL (2.5-4.9); SGOT/AST 28 IU/L (3-35); SGPT/ALT 12 U/L (12-78); SODIUM 138 mmol/L (136-145); TOTAL PROTEIN 5.4 gm/dL (6.4-8.2)
[2018-05-10 07:26] LABS: ACT PARTIAL THROMBO TIME 30.2 SECONDS (20.8-31.5); INTERNATIONAL NORM RATIO 1.4 (2.0-3.5)
--- NOTE | 2018-05-10 08:05 | NUR ---
PERCOCET GIVEN FOR C/O ABDM. PAIN. WILL MONITOR.
--- NOTE | 2018-05-10 08:38 | NUR ---
ENEIDA LORENZ [id number] Please refer to the physician's history and physical for past medical history, comorbid conditions, and allergies. Diagnosis: ASCITES ABDOMINAL PAIN CHEST PAIN Clemente Score: 19,LOW OR NO RISK WOUND DESCRIPTIONS: Location of the wound: Right side of forehead Type of wound: Thickness: Partial Size: 2.0cm x 0.2cm x 0.1cm Tunneling: none Undermining: none Sinus Tract: none Presence of Exudate: Sanguineous Amount: None Color: Red Odor: None Periwound Skin Appearance: Normal Wound edges: approximated Pain (associated with wound): none at time of assessment How does patient state this happened? pt stated he knee gave out and she fell which is what caused this area and the ecchymotic area to her chin and left thumb. Left thumb is swollen and not painful to touch. Patient stated that is the least of her worries and she stated my worry is by belly. Surface the patient is resting on: Position Pro SKIN PREVENTION RECOMMENDATION: 1. Pressure redistribution support surface as appropriate 2. Elevate heels 3. Remove boots/TEDS every shift and reapply 4. Head of bed 30 degrees as tolerated 5. Assess nutrition and hydration 6. Manage moisture 7. Avoid the use of containment devices while in bed 8. Use absorptive products on surfaces limit layers of linens on bed 9. Turn and reposition every 1-2 hours in bed and every 1 hour in chair as tolerated 10. Weight shifts every 15 minutes while up in chair 11. Offloading with pillows or device to keep heels elevated off bed 12. Monitor skin at least every shift 13. Inspect under medical devices twice a day WOUND TREATMENT RECOMMENDATIONS: Cleanse right side of forehead with nss and apply antibiotic ointment and cover with bandaid. Imaging studies to left hand due to edema, it being ecchymotic and patient stated she fell. Recommend follow up for wound care in outpatient setting patient refused at this time.
--- NOTE | 2018-05-10 09:00 | NUR ---
Brim Raiser in to talk to patient. Patient states lives at home alone with her boyfriend and daughter checking in on her. There are 0 steps in the home. Physician: Dr. Kalia Jackson [facility]: [facility] Home health services: has had in the past but not currently Patient's level of ADLs: INDEPENDENT Patient has working utilities: yes DME: none Follow-up physician's appointment after d/c: she prefers to make her own follow up appt after discharge Does patient want to access PORTAL?: no Discharge plan discussed with patient. [facility] with her boyfriend and daughter checking in on her. She is independent in her ADLs and ambulation. Discussed home health care services and she denies any home needs at this time. She states she has her boyfriend come and stay with her when she doesn't feel well in case something was to happen. She left [facility] because they were not doing anything for her that she couldn't do for herself at home. When medically stable she will be discharged to home. LUCIAN REES
--- NOTE | 2018-05-10 09:18 | NUR ---
PERCOCET EFFECTIVE PER PT.
--- NOTE | 2018-05-10 10:22 | NUR ---
Dr. Steward notified of wound care recommendations.
[2018-05-10 12:00] VITALS: BP 100/56
[2018-05-10 16:00] VITALS: BP 105/68
[2018-05-10 16:28] LABS: BILIRUBIN 1+ (NEGATIVE); BLOOD NEGATIVE (NEGATIVE); CLARITY SL CLOUDY (CLEAR); COLOR YELLOW (YELLOW); GLUCOSE NEGATIVE (NEGATIVE); KETONE NEGATIVE (NEGATIVE); LEUKO ESTERASE TRACE (NEGATIVE); NITRITE NEGATIVE (NEGATIVE)
[2018-05-10 16:53] LABS: BACTERIA 1+; EPITHELIAL CELLS TNTC; RBC 0-2 rbc/hpf (0-2); YEAST 1+
--- NOTE | 2018-05-10 19:40 | NUR ---
Harrise report obtained from previous nurse.
[2018-05-10 20:00] VITALS: BP 132/72
--- NOTE | 2018-05-10 20:00 | NUR ---
Spoke with Dr. Sherman regarding pain management, see new order.
--- NOTE | 2018-05-10 20:11 | NUR ---
Patient is awake, alert, and oriented x3 with easy and regular respers on room air. Assessment is complete with no s/s of distress noted at this time. Patient does c/o abdominal pain. Bed is low, locked, and call light is within reach. See shift assessment. Contacted Dr. Sherman regarding patient allergy to toradol. One time dose of Percocet 5/325 ordered at this time.
--- NOTE | 2018-05-10 21:14 | NUR ---
2200 Medications given as well as one time dose of Percocet 5/325 for patient c/o abdominal pain. Patient tolerated well, call light is witin reach. Will monitor effect.
--- NOTE | 2018-05-10 23:00 | NUR ---
Pain medication given earlier seem effective, patient is sleeping with easy and regular respers on room air. Call light is within reach.
[2018-05-11] VITALS: BP 111/65
--- NOTE | 2018-05-11 06:56 | NUR ---
PRN Percocet given at this time for patient c/o all over pain. Call light is within reach.
[2018-05-11 07:09] LABS: BASO % 0.4 % (0.0-1.0); EOS % 1.4 % (1.0-4.0); HEMATOCRIT 32.7 % (37.0-47.0); HEMOGLOBIN 10.4 g/dl (12.0-16.0); LYMPH # 1.3 10*3/uL (1.3-4.4); LYMPH % 47.3 % (27.0-41.0); MEAN CELL VOLUME 93.2 fl (81.0-99.0); MEAN CORPUSCULAR HGB 29.6 pg (27.0-31.0); MEAN CORPUSCULAR HGB CONC 31.8 g/dl (33.0-37.0); MEAN PLATELET VOLUME 10.4 fl (9.6-12.3); MONO # 0.3 10*3/uL (0.1-1.0); MONO % 10.4 % (3.0-9.0); NEUT # 1.1 10*3/uL (2.3-7.9); NEUT % 39.8 % (47.0-73.0); PLATELET COUNT AUTOMATED 112 10*3/uL (130-400); RED BLOOD COUNT 3.51 10*6/uL (4.10-5.10); RED CELL DISTRI WIDTH 15.9 % (0-14.5); WHITE BLOOD COUNT 2.8 10*3/uL (4.8-10.8)
[2018-05-11 07:37] LABS: ACT PARTIAL THROMBO TIME 32.3 SECONDS (20.8-31.5); INTERNATIONAL NORM RATIO 1.5 (2.0-3.5)
[2018-05-11 07:38] LABS: BUN 9 mg/dl (7-24); CHLORIDE 103 mmol/L (98-107); CREATININE 0.69 mg/dL (0.55-1.02); SODIUM 138 mmol/L (136-145)
[2018-05-11 08:00] VITALS: BP 122/80
--- NOTE | 2018-05-11 08:30 | NUR ---
Pocket And Pulley Machine Operator in to see patient. No new needs or request at this time. She denies any home needs. When medically stable she will be discharged to home.
--- NOTE | 2018-05-11 09:40 | NUR ---
NOTIFIED THAT PATIENT IS COMPLAINING OF CHEST PAIN, LEFT ARM AND LEG NUMBNESS; ORDERS OBTAINED FOR EKG & TROPONIN LEVEL.
[2018-05-11 12:00] VITALS: BP 106/63
--- NOTE | 2018-05-11 14:26 | NUR ---
NOTIFIED AND OF NEW CONSULTS.
[2018-05-11 16:00] VITALS: BP 109/61
[2018-05-11 20:00] VITALS: BP 99/72
--- NOTE | 2018-05-11 20:55 | NUR ---
NOTIFIED DR HUDSON OF PATIENT REQUESTING SOMETHING TO HELP HER SLEEP. STATED HE WILL PUT SOMETHING IN FOR HER.
--- NOTE | 2018-05-11 22:00 | NUR ---
PATIENT MEDICATED WITH 1X DOSE VISTARIL ORDERD FOR PATIENT COMPLAINTS OF INSOMINA. PLEASANT/COOPERATIVE FOR SHIFT ASSESSMENT. RESPIRATIONS EASY/REG ON RA. STATES HER PAIN IS "FINE FOR RIGHT NOW" BED IN LOW POSITION, WHEELS LOCKED, CALL LIGHT IN REACH
--- NOTE | 2018-05-11 23:00 | NUR ---
EARLIER VISTARIL APPEARS EFFECTIVE. PATIENT RESTING COMOFORTABLY IN BED. NO S/S OF DISTRESS NOTED. RESPIRATIONS EASY/REG ON RA. CALL LIGHT IS IN REACH. WILL MONITOR
[2018-05-12] VITALS: BP 91/69
--- NOTE | 2018-05-12 03:20 | NUR ---
PATIENT SLEEPING. NO S/S OF DISTRESS NOTED. RESPIRATIONS EASY/REG. CALL LIGHT IN REACH. WILL MONITOR
[2018-05-12 05:59] LABS: BASO % 0.8 % (0.0-1.0); EOS % 0.8 % (1.0-4.0); HEMATOCRIT 32.7 % (37.0-47.0); HEMOGLOBIN 10.3 g/dl (12.0-16.0); LYMPH # 1.2 10*3/uL (1.3-4.4); LYMPH % 47.2 % (27.0-41.0); MEAN CELL VOLUME 93.7 fl (81.0-99.0); MEAN CORPUSCULAR HGB 29.5 pg (27.0-31.0); MEAN CORPUSCULAR HGB CONC 31.5 g/dl (33.0-37.0); MEAN PLATELET VOLUME 10.7 fl (9.6-12.3); MONO # 0.2 10*3/uL (0.1-1.0); MONO % 9.3 % (3.0-9.0); NEUT % 41.5 % (47.0-73.0); PLATELET COUNT AUTOMATED 108 10*3/uL (130-400); RED BLOOD COUNT 3.49 10*6/uL (4.10-5.10); RED CELL DISTRI WIDTH 15.9 % (0-14.5); WHITE BLOOD COUNT 2.5 10*3/uL (4.8-10.8)
[2018-05-12 06:12] LABS: BUN 9 mg/dl (7-24); CHLORIDE 103 mmol/L (98-107); POTASSIUM 4.2 mmol/L (3.5-5.1); SODIUM 137 mmol/L (136-145)
[2018-05-12 06:30] LABS: ACT PARTIAL THROMBO TIME 33.5 SECONDS (20.8-31.5); INTERNATIONAL NORM RATIO 1.5 (2.0-3.5)
--- NOTE | 2018-05-12 06:55 | NUR ---
SLEPT T/O SHIFT. NO VOICED COMPLAINTS. RESTING COMFORTABLY IN BED AT THIS TIME. RESPIRATIONS EASY/REG ON RA. CALL LIGHT IN REACH
[2018-05-12 08:00] VITALS: BP 98/60
--- NOTE | 2018-05-12 08:30 | NUR ---
PT COMPLAINING OF ABD PAIN AND BACK PAIN, RATES PAIN 8/10. MEDICATED WITH PERCOCET PER PRN ORDER. WILL MONITOR FOR EFFECTIVENESS.
--- NOTE | 2018-05-12 10:30 | NUR ---
PT RESTING MORE COMFORTABLY, STATES EARLIER PERCOCET HELPED, STILL HAVING SOME BACK/ABD PAIN, BUT IT HAS LESSENNED.
--- NOTE | 2018-05-12 11:00 | NUR ---
Discussed case with her [facility] case hardener. She is going to try to stop down here at the hospital to see the patient.
[2018-05-12 12:00] VITALS: BP 119/88
--- NOTE | 2018-05-12 13:29 | NUR ---
MEDICATED WITH TYLENOL PER PRN ORDER FOR COMPLAINTS OF RIGHT ARM, ABDOMEN, AND BACK PAIN. WILL MONITOR FOR EFFECTIVENESS.
--- NOTE | 2018-05-12 14:30 | NUR ---
PT RESTING AT THIS TIME, EARLIER TYLENOL APPEARS EFFECTIVE.
[2018-05-12 16:00] VITALS: BP 119/88; BP 126/79
--- NOTE | 2018-05-12 17:53 | NUR ---
MEDICATED WITH PERCOCET PER PRN ORDER FOR COMPLAINTS OF RIGHT ARM,ABD, AND LEFT THUMB PAIN. RATES PAIN 9/10. EXPLAINED TO PT THAT THIS IS THE LAST DOSE OF PAIN MED SHE CAN HAVE FOR THE DAY. PT VERBALIZEDB UNDERSTANDING.
--- NOTE | 2018-05-12 19:45 | NUR ---
NOTIFIED DR ROCHA OF PATIENT HAVING HER HOME LASIX HERE AND IT WAS SENT TO PHARMACY. IT HAS NOT BEEN FILLED SINCE AND PATIENT SAID SHE WAS NOT TAKING IT SHE WAS SUPPOSED TO. STATES SHE DID TAKE ONE EARLIER TODAY AND "IM SORRY BUT I WANTED TO TELL THE TRUTH BECAUSE I DONT LIKE HIDING THINGS FROM YOU GUYS"
[2018-05-12 20:00] VITALS: BP 126/84
--- NOTE | 2018-05-12 20:02 | NUR ---
AWAKE/ALERT FOR SHIFT ASSESSMENT. RESPIRATIONS EASY/REG ON RA. PLEASANT AND COOPERATIVE WITH CARE AT THIS TIME. PATIENTS ABDOMIN BECOMING FIRM/DISTENDED AGAIN. PATIENT RATES PAIN 5/10. ON PHONE WITH FAMILY MEMBER AT THIS TIME. WILL MONITOR.
[2018-05-13] VITALS (9 sets, daily range): BP systolic 121–154; BP diastolic 68–100
--- NOTE | 2018-05-13 02:35 | NUR ---
PATIENT SLEEPING. NO S/S OF DISTRESS NOTED. RESPIRATIONS EASY/REG ON RA. BED IN LOW POSITION, WHEELS LOCKED, CALL LIGHT IN REACH. WILL MONITOR.
--- NOTE | 2018-05-13 04:47 | NUR ---
NOTIFIED DR ROCHA OF PATIENT REQUESTING SOMETHING FOR PAIN BUT NPO STATUS FOR EGD. PER SURGERY SCHEDULE PATIENT IS NOT GOING TILL 1510. OKAY TO GIVE PERCOCET WITH LITTLE SIP OF WATER PER DR ROCHA.
[2018-05-13 06:57] LABS: BUN 9 mg/dl (7-24); CHLORIDE 103 mmol/L (98-107); CREATININE 0.83 mg/dL (0.55-1.02); POTASSIUM 4.1 mmol/L (3.5-5.1); SODIUM 135 mmol/L (136-145)
[2018-05-13 06:59] LABS: BASO % 0.5 % (0.0-1.0); EOS # 0.1 10*3/uL (0.0-0.4); EOS % 1.5 % (1.0-4.0); HEMOGLOBIN 10.7 g/dl (12.0-16.0); LYMPH # 1.5 10*3/uL (1.3-4.4); LYMPH % 38.7 % (27.0-41.0); MEAN CELL VOLUME 94.9 fl (81.0-99.0); MEAN CORPUSCULAR HGB CONC 30.6 g/dl (33.0-37.0); MEAN PLATELET VOLUME 10.6 fl (9.6-12.3); MONO # 0.3 10*3/uL (0.1-1.0); MONO % 8.2 % (3.0-9.0); NEUT % 50.6 % (47.0-73.0); PLATELET COUNT AUTOMATED 103 10*3/uL (130-400); RED BLOOD COUNT 3.69 10*6/uL (4.10-5.10); WHITE BLOOD COUNT 3.9 10*3/uL (4.8-10.8)
--- NOTE | 2018-05-13 09:00 | NUR ---
Furniture Repair Technician in to see patient. No new needs or request at this time. She denies any home needs. When medically stable she will be discharged to home.
--- NOTE | 2018-05-13 15:25 | NUR ---
PATIENT OFF THE FLOOR TO SURGERY AT THIS TIME. PATIENT VITAL SIGNS STABLE. RN WILLL CONTINUE TO MONITOR
[2018-05-14] VITALS: BP 148/77
--- NOTE | 2018-05-14 05:43 | NUR ---
PT GIVEN PERCOCET FOR C/O GENERALIZED PAIN. WILL MONITOR. CALL LIGHT IN REACH.
--- NOTE | 2018-05-14 06:43 | NUR ---
PERCOCET EFFECTIVE PER PT.
[2018-05-14 08:00] VITALS: BP 122/82
--- NOTE | 2018-05-14 08:15 | NUR ---
PATIENT HAD WATER EMESIS X 1 AND REQUESTING NAUSEA MEDICATION, OBTAINED ORDER FOR ZOFRAN 4MG IV X 1.
--- NOTE | 2018-05-14 09:10 | NUR ---
ADMINISTERED IV ZOFRAN FOR C/O NAUSEA. PATIENT HAS MULTIPLE COMPLAINTS THIS MORNING; DIZZINESS, NAUSEA, MALAISE, NEW AREAS OF ECCHYMOSIS TO ARMS AND HANDS PER PATIENT, SORENESS TO BACK OF HEAD FROM FALL/INJURY AT HOME, INTERMITTENT ABDOMINAL CRAMPING PAIN, ABDOMINAL TENDERNESS, BILATERAL ARMS AND LEGS PAIN, LEFT LEG NUMBNESS WITH PINS AND NEEDLES PAIN, AND COUGHING UP BROWN SPUTUM, ALSO INCREASED ANXIETY.
--- NOTE | 2018-05-14 09:23 | NUR ---
MEDICATED WITH PRN PO TYLENOL FOR RIGHT SIDE ABDOMINAL PAIN AND RIGHT LEG PAIN.
--- NOTE | 2018-05-14 10:00 | NUR ---
PRN IV ZOFRAN AND TYLENOL SOMEWHAT EFFECTIVE, PER PATIENT.
[2018-05-14 12:00] VITALS: BP 116/83
--- NOTE | 2018-05-14 12:00 | NUR ---
PATIENT C/O SEVERE PAIN TO ARMS/LEGS/ABDOMEN AND EVERYWHERE. PHONED DR. CORDOVA FOR ORDER FOR TORADOL 30MG IM X 1 NOW.
--- NOTE | 2018-05-14 12:52 | NUR ---
DUE TO PATIENT HAS ALLERGY TO TORADOL, OBTAINED ORDER FOR PERCOCET X 1 TAB NOW FOR PAIN.
--- NOTE | 2018-05-14 12:58 | NUR ---
MEDICATED WITH PERCOCET X 1 NOW ORDERED FOR GENERALIZED PAIN.
[2018-05-14 16:00] VITALS: BP 101/53
--- NOTE | 2018-05-14 17:55 | NUR ---
MEDICATED WITH PRN PO PERCOCET FOR C/O GENRALIZED PAIN.
[2018-05-14 20:01] VITALS: BP 132/78
[2018-05-15] VITALS: BP 139/68
[2018-05-15 06:26] LABS: BASO % 0.6 % (0.0-1.0); EOS % 0.6 % (1.0-4.0); HEMATOCRIT 35.4 % (37.0-47.0); HEMOGLOBIN 10.9 g/dl (12.0-16.0); LYMPH # 1.4 10*3/uL (1.3-4.4); LYMPH % 30.2 % (27.0-41.0); MEAN CELL VOLUME 95.2 fl (81.0-99.0); MEAN CORPUSCULAR HGB 29.3 pg (27.0-31.0); MEAN CORPUSCULAR HGB CONC 30.8 g/dl (33.0-37.0); MEAN PLATELET VOLUME 10.8 fl (9.6-12.3); MONO # 0.4 10*3/uL (0.1-1.0); MONO % 8.4 % (3.0-9.0); NEUT # 2.8 10*3/uL (2.3-7.9); NEUT % 59.6 % (47.0-73.0); PLATELET COUNT AUTOMATED 109 10*3/uL (130-400); RED BLOOD COUNT 3.72 10*6/uL (4.10-5.10); RED CELL DISTRI WIDTH 16.5 % (0-14.5); WHITE BLOOD COUNT 4.8 10*3/uL (4.8-10.8)
[2018-05-15 06:49] LABS: ALBUMIN 2.5 gm/dl (3.1-4.5); ALKALINE PHOSPHATASE 303 U/L (45-117); BUN 5 mg/dl (7-24); CHLORIDE 103 mmol/L (98-107); CREATININE 0.77 mg/dL (0.55-1.02); POTASSIUM 3.5 mmol/L (3.5-5.1); SGOT/AST 45 IU/L (3-35); SGPT/ALT 15 U/L (12-78); SODIUM 134 mmol/L (136-145); TOTAL PROTEIN 6.1 gm/dL (6.4-8.2)
--- NOTE | 2018-05-15 08:30 | NUR ---
PT RESTING COMFORTABLY
[2018-05-15 10:04] VITALS: BP 140/88
--- NOTE | 2018-05-15 10:07 | NUR ---
PT ASSESSMENT COMPLETE. PT HAS MULTIPLE COMPLAINTS, HEADACHE, ARMS HURT, LEGS HURT, ABDOMEN HURTS. PT HAS BRUISING ON CHIN, SCABBED AREA TO FOREHEAD, NOT OPEN AT THIS TIME, ABDOMEN DISTENDED, REDDENED AREAS ON ARMS AND LEGS. PATIETNS DWAINFRGENNA WATTS AT BEDSIDE.
[2018-05-15 12:00] VITALS: BP 130/83
--- NOTE | 2018-05-15 14:48 | NUR ---
PT SLEEPING AT THIS TIME
[2018-05-15 16:00] VITALS: BP 130/88
--- NOTE | 2018-05-15 16:11 | NUR ---
pt complains of pain all over 9/10, prn pain medication given. pt requested to take all evening medications now
--- NOTE | 2018-05-15 19:47 | NUR ---
PATIENT CRYING. STATES THE DOCTOR DOES NOT CARE AND MAKING HER LAY IN PAIN FOR 12 HOURS. STATES THAT SHE WILL JUST GO TO ANOTHER HOSPITAL BECAUSE "THESE DOCTORS AND NURSES DONT KNOW WHAT THEY ARE DOING". PATIENT EDUCATED ON THE PLAN OF CARE AND THE REASONS TO WHY MEDICATIONS ARE ORDERED THE WAY THEY ARE. EDUCATED ON CHIRROSIS OF THE LIVER AND ABDOMIAL DISTENTION. EDUCATED ON PAIN MEDICATION AND POSSIBLE DAMAGE TO KIDNEYS. PATIENT VERBALIZED UNDERSTANDING. REQUESTING TYLENOL.
[2018-05-15 20:00] VITALS: BP 132/91
--- NOTE | 2018-05-15 20:10 | NUR ---
PATIENT STATES SHE HAS NOT URINATED IN TWO DAYS. NO HAT SEEN IN PATIENT'S BSC OR RESTROOM
--- NOTE | 2018-05-15 20:33 | NUR ---
MEDICATED WITH PRN TYLENOL FOR C/O PAIN. RATED 9/10 ON A 0/10 SCALE. BED ALARM ON. WILL MONITOR
--- NOTE | 2018-05-15 20:36 | NUR ---
BLADDER SCANNED FOR >500CC URINE.
--- NOTE | 2018-05-15 20:42 | NUR ---
DR CORDOVA AWARE OF PATIENT BLADDER SCAN GREATER THAN 550. ORDER FOR STRAIGHT CATH AND BLADDER SCANE EVERY SHIFT FOR [address] AWARE OF PATIENT BEING ANXIOUS AND THINKING SHE IS GOING TO . ALSO MADE AWARE OF C/O LEFT ARM NUMBNESS. STATES TO CALL DR PEREZ
--- NOTE | 2018-05-15 20:58 | NUR ---
LEANN NIETO PRODUCTION LAPPING MACHINE OPERATOR, BACK TACKER FOR DR PEREZ. AWARE OF PATIENT CRYING AND STATING SHE IS AFRAID TO . STATES TO START THE PATIENT ON 15MG OF REMERON AT BEDTIME.
--- NOTE | 2018-05-15 21:29 | NUR ---
2125 PT STRAIGHT CATHED FOR 500CC CLEAR JESSY URINE. TOLERATED WELL.
[2018-05-16] VITALS: BP 122/77
--- NOTE | 2018-05-16 03:45 | NUR ---
MEDICATED WITH PRN PERCOCET FOR C/O ABD PAIN RATED 10/10 ON A 0/10 SCALE
--- NOTE | 2018-05-16 04:07 | NUR ---
PATIENT RESTING IN BED WITH NO S/S OF DISTRESS, BED IN LOWEST POSITION, CALL LIGHT IN REACH
[2018-05-16 08:00] VITALS: BP 150/90
--- NOTE | 2018-05-16 08:30 | NUR ---
Patient resting quietly with no c/o discomfort. Respirations easy and regular. Vital signs stable. No overt distress. JEFF MARIEE R
--- NOTE | 2018-05-16 10:47 | NUR ---
DR ROCHA NOTIFIED OF ULTRASOUNDS CALL THAT PT HAS ENOUGH FLUID FOR PARACENTESIS AND ASKING FOR ORDER TO BE PUT IN. SHE STATES SHE WILL PUT ORDER IN.
[2018-05-16 12:00] VITALS: BP 135/86
--- NOTE | 2018-05-16 12:30 | NUR ---
2300 REMOVED DURING PARACENTESIS
--- NOTE | 2018-05-16 12:47 | NUR ---
ATTEMPTED TO SEE PT AT BS, 2X. FIRST ATTEMPT, PT HAD VISITOR AND REQUESTED THERAPIST TO RETURN LATER. ON 2ND ATTEMPT, PT STATED SHE IS GOING HOME THIS AFTERNOON. NO OT EVAL THIS DATE
[2018-05-16] MEDS ORDERED: PANTOPRAZOLE SO40 MG PO (13:52)
[2018-05-16] MEDS ORDERED: Carafate1 GM PO (13:52)
[2018-05-16] MEDS ORDERED: FUROSEMIDE20 M1 PO (13:52)
[2018-05-16] MEDS ORDERED: VITAMIN D32000 UNI1 PO (13:52)
[2018-05-16] MEDS ORDERED: ALDACTONE25 MG PO (13:52)
[2018-05-16] MEDS ORDERED: HYDROXYZINE PAM25 M1 PO (13:52)
--- NOTE | 2018-05-16 16:45 | NUR ---
Discharge instructions reviewed with patient/family. Patient receptive and verbalizes understanding. Follow-up care arranged. Written instructions given to patient/family. JEFF MARIEE
== END 2018-05-16 17:10 | disposition home or self-care (01) | DRG 380 ==
LOC: ED 10:34 → 4E 13:20 → EDHOLD 13:20 → 4E 13:39
PROVIDERS: Emergency Medicine; Internal Medicine Gastroenterology; Internal Medicine Nephrology; Nurse Practitioner Family; Student in an Organized Health Care Education/Training Program; ADMIT Internal Medicine
PROC: 0W9G3ZZ Drainage of Peritoneal Cavity, Percutaneous Approach (ICD-10-PCS; 2018-05-10)
PROC: 2W3GX1Z Immobilization of Right Thumb using Splint (ICD-10-PCS; 2018-05-12)
PROC: 0DB68ZX Excision of Stomach, Via Natural or Artificial Opening Endoscopic, Diagnostic (ICD-10-PCS; principal; 2018-05-13)
PROC: 0W9G3ZZ Drainage of Peritoneal Cavity, Percutaneous Approach (ICD-10-PCS; 2018-05-16)
DX: K22.10 Ulcer of esophagus without bleeding (principal); E43 Unspecified severe protein-calorie malnutrition; E87.2 Acidosis; E87.1 Hypo-osmolality and hyponatremia; I50.32 Chronic diastolic (congestive) heart failure; D61.818 Other pancytopenia; K76.6 Portal hypertension; K29.20 Alcoholic gastritis without bleeding; K44.9 Diaphragmatic hernia without obstruction or gangrene; K70.31 Alcoholic cirrhosis of liver with ascites; F12.10 Cannabis abuse, uncomplicated; F31.9 Bipolar disorder, unspecified; G89.29 Other chronic pain; I11.0 Hypertensive heart disease with heart failure; F41.1 Generalized anxiety disorder; K21.9 Gastro-esophageal reflux disease without esophagitis; E03.9 Hypothyroidism, unspecified; G40.909 Epilepsy, unspecified, not intractable, without status epilepticus; D72.810 Lymphocytopenia; E80.6 Other disorders of bilirubin metabolism; B19.20 Unspecified viral hepatitis C without hepatic coma; M19.91 Primary osteoarthritis, unspecified site; E55.9 Vitamin D deficiency, unspecified; K29.70 Gastritis, unspecified, without bleeding; R41.9 Unspecified symptoms and signs involving cognitive functions and awareness; E66.9 Obesity, unspecified; R29.6 Repeated falls; Z68.26 Body mass index [BMI] 26.0-26.9, adult; Z87.81 Personal history of (healed) traumatic fracture; Z81.8 Family history of other mental and behavioral disorders; Z88.9 Allergy status to unspecified drugs, medicaments and biological substances; Z87.891 Personal history of nicotine dependence; I25.2 Old myocardial infarction; S62.502A Fracture of unspecified phalanx of left thumb, initial encounter for closed fracture; W18.39XA Other fall on same level, initial encounter; Y93.89 Activity, other specified; Y92.89 Other specified places as the place of occurrence of the external cause; Y99.8 Other external cause status

== ENCOUNTER 2018-05-17 08:20 | Inpatient (IN) | payer OTHER ==
[2018-05-17] VITALS (7 sets, daily range): BP systolic 118–138; BP diastolic 80–98
[~2018-05-17] VITALS: Ht 162.5 cm; Wt 70.3 kg
--- NOTE | ~2018-05-17 | EKG ---
[place], [place] ELECTROCARDIOGRAM REPORT NAME: ENEIDA LORENZ UNIT #: [id number] ROOM: 409 DOCTOR: DAVIS DRAFT REPORT BIRTHDATE: [birth year] [facility] Test Date: 2018-05-17 Test Time: 15:50:32 Pat Name: ENEIDA LORENZ Department: Room: 409 Gender: F Certified Social Workers In Health Care: EKG.MO : 1965 Requested By: WILLOW RICO Order Number: [id number] Reading MD: Kalia Jackson MD Measurements Intervals [place] Rate: 102 P: 35 [place]: 169 QRS: 32 QRSD: 76 T: 53 QT: 348 QTc: 454 Interpretive Statements Sinus tachycardia Low voltage, precordial leads Compared to ECG 05/11/2018 10:45:22 Sinus rhythm no longer present Electronically Signed On 05-24-2018 7:15:42 PST by Kalia Jackson MD CM:EKGRPT:ELECTROCARDIOGRAM REPORT 1550 0715 WILLOW PRIETO DRAFT REPORT WILLOW RICO DO
--- NOTE | ~2018-05-17 | EKG ---
[place], [place] ELECTROCARDIOGRAM REPORT NAME: ENEIDA LORENZ UNIT #: [id number] ROOM: 409 DOCTOR: DAVIS DRAFT REPORT BIRTHDATE: [birth year] [facility] Test Date: 2018-05-17 Test Time: 08:21:59 Pat Name: ENEIDA LORENZ Department: Room: 409 Gender: F Document Reviewer: Tova [place] : 1965 Requested By: WILLOW RICO Order Number: [id number] Reading MD: Kalia Jackson MD Measurements Intervals [place] Rate: 112 P: 76 [place]: 168 QRS: 44 QRSD: 84 T: 70 QT: 334 QTc: 456 Interpretive Statements Sinus tachycardia Low voltage, precordial leads Anteroseptal infarct, age indeterminate Compared to ECG 05/11/2018 10:45:22 Myocardial infarct finding now present Sinus rhythm no longer present Electronically Signed On 05-24-2018 7:15:10 PST by Kalia Jackson MD CM:EKGRPT:ELECTROCARDIOGRAM REPORT 0821 0715 WILLOW PRIETO DRAFT REPORT WILLOW RICO DO
--- NOTE | ~2018-05-17 | EKG ---
[place], [place] ELECTROCARDIOGRAM REPORT NAME: ENEIDA LORENZ UNIT #: [id number] ROOM: 409 DOCTOR: DAVIS DRAFT REPORT BIRTHDATE: [birth year] [facility] Test Date: 2018-05-17 Test Time: 11:25:31 Pat Name: ENEIDA LORENZ Department: Room: 409 Gender: F Advocacy Director: EKG.ND : 1965 Requested By: WILLOW RICO Order Number: [id number] Reading MD: Kalia Jackson MD Measurements Intervals [place] Rate: 101 P: 50 [place]: 167 QRS: 22 QRSD: 78 T: 48 QT: 345 QTc: 448 Interpretive Statements Sinus tachycardia Anterior infarct, old Compared to ECG 05/11/2018 10:45:22 Myocardial infarct finding now present Sinus rhythm no longer present Electronically Signed On 05-24-2018 7:15:17 PST by Kalia Jackson MD CM:EKGRPT:ELECTROCARDIOGRAM REPORT 1125 0715 WILLOW PRIETO DRAFT REPORT WILLOW RICO DO
[~2018-05-17 08:20] MED LIST changes: +Carafate1 GM PO; +HYDROXYZINE PAM25 M1 PO; +VITAMIN D32000 UNI1 PO
[2018-05-17 08:46] LABS: BASO % 0.9 % (0.0-1.0); EOS % 0.9 % (1.0-4.0); HEMATOCRIT 36.6 % (37.0-47.0); HEMOGLOBIN 11.3 g/dl (12.0-16.0); LYMPH # 1.3 10*3/uL (1.3-4.4); LYMPH % 35.8 % (27.0-41.0); MEAN CELL VOLUME 94.6 fl (81.0-99.0); MEAN CORPUSCULAR HGB 29.2 pg (27.0-31.0); MEAN CORPUSCULAR HGB CONC 30.9 g/dl (33.0-37.0); MEAN PLATELET VOLUME 10.5 fl (9.6-12.3); MONO # 0.3 10*3/uL (0.1-1.0); MONO % 8.5 % (3.0-9.0); NEUT # 1.9 10*3/uL (2.3-7.9); NEUT % 53.6 % (47.0-73.0); PLATELET COUNT AUTOMATED 111 10*3/uL (130-400); RED BLOOD COUNT 3.87 10*6/uL (4.10-5.10); WHITE BLOOD COUNT 3.5 10*3/uL (4.8-10.8)
[2018-05-17 08:53] LABS: ACT PARTIAL THROMBO TIME 28.2 SECONDS (20.8-31.5); INTERNATIONAL NORM RATIO 1.1 (2.0-3.5)
[2018-05-17 09:01] LABS: ALBUMIN 2.5 gm/dl (3.1-4.5); ALKALINE PHOSPHATASE 259 U/L (45-117); BUN 4 mg/dl (7-24); CHLORIDE 106 mmol/L (98-107); CREATININE 0.83 mg/dL (0.55-1.02); POTASSIUM 2.7 mmol/L (3.5-5.1); SGOT/AST 31 IU/L (3-35); SGPT/ALT 16 U/L (12-78); SODIUM 140 mmol/L (136-145); TOTAL PROTEIN 6.2 gm/dL (6.4-8.2)
[2018-05-17 09:02] LABS: TROPONIN I < 0.015 ng/ml (<0.045)
--- NOTE | 2018-05-17 11:00 | NUR ---
A 52, admitted to , under the services of SANDI Stover MD with a diagnosis of ABDOMINAL PAIN, HYPOKALEMIA. Chief complaint is ABDOMINAL PAIN, "PAIN ALL OVER". Patient arrived via stretcher from ER. Monitor applied. Initial assessment completed. Vital signs taken and recorded. SANDI STOVER MD notified of admission to the unit. Orders received. See assessment for past medical history, medications and allergies. Patient and/or family oriented to unit. [address] visitation policy reviewed. Clothing/patient valuable form completed. JEFF MARIEE
--- NOTE | 2018-05-17 13:06 | NUR ---
PT ADMINISTERED PERCOCET FOR ABDOMINAL PAIN. RATES A 10/10 ON A PAIN SCALE. WILL MONITOR.
--- NOTE | 2018-05-17 13:39 | NUR ---
[facility] CALLED. INFO FAXED.
--- NOTE | 2018-05-17 14:30 | NUR ---
PEROCOCET EFFECTIVE PER PT. CALL LIGHT IN REACH. WILL MONITOR
--- NOTE | 2018-05-17 16:30 | NUR ---
SANJU SHINE NP IN TO SEE PT. PT RECEPTIVE TO [facility] AT DISCHARGE.
--- NOTE | 2018-05-17 16:51 | NUR ---
PT MEDICATED WITH TYLENOL FOR C/O HEADACHE. WILL MONITOR.
--- NOTE | 2018-05-17 18:05 | NUR ---
NO C/O VOICED AT THIS TIME. PT VISITING WITH FAMILY AT PRESENT. CALL LIGHT WITHIN REACH.
--- NOTE | 2018-05-17 18:42 | NUR ---
PT MEDICATED WITH ZOFRAN FOR SMALL EMESIS. CALL LIGHT IN REACH. WILL MONITOR
--- NOTE | 2018-05-17 19:07 | NUR ---
HOME MEDS IN THE PHARMACY.
[2018-05-18] VITALS: BP 120/63
[2018-05-18 07:16] LABS: BASO % 0.8 % (0.0-1.0); EOS # 0.1 10*3/uL (0.0-0.4); EOS % 1.4 % (1.0-4.0); HEMATOCRIT 31.8 % (37.0-47.0); HEMOGLOBIN 9.8 g/dl (12.0-16.0); LYMPH # 1.6 10*3/uL (1.3-4.4); LYMPH % 42.2 % (27.0-41.0); MEAN CELL VOLUME 94.1 fl (81.0-99.0); MEAN CORPUSCULAR HGB CONC 30.8 g/dl (33.0-37.0); MEAN PLATELET VOLUME 10.9 fl (9.6-12.3); MONO # 0.4 10*3/uL (0.1-1.0); MONO % 11.9 % (3.0-9.0); NEUT # 1.6 10*3/uL (2.3-7.9); NEUT % 43.4 % (47.0-73.0); PLATELET COUNT AUTOMATED 127 10*3/uL (130-400); RED BLOOD COUNT 3.38 10*6/uL (4.10-5.10); RED CELL DISTRI WIDTH 17.4 % (0-14.5); WHITE BLOOD COUNT 3.7 10*3/uL (4.8-10.8)
[2018-05-18 07:48] LABS: BUN 4 mg/dl (7-24); CHLORIDE 104 mmol/L (98-107); CREATININE 0.75 mg/dL (0.55-1.02); PHOSPHOROUS 2.9 mg/dL (2.5-4.9); POTASSIUM 3.1 mmol/L (3.5-5.1); SODIUM 138 mmol/L (136-145)
[2018-05-18 08:00] VITALS: BP 114/84; BP 122/76
--- NOTE | 2018-05-18 09:24 | NUR ---
Scheduled percocet given for c/o abdominal pain. Will monitor.
[2018-05-18 12:00] VITALS: BP 120/79
--- NOTE | 2018-05-18 12:30 | NUR ---
Spoke with patient regarding her fear of going home and being left alone while her boyfriend is working. I asked her about signing herself out of SNF and she said "I did that because I figured there was somebody who needs it more than I do." She also stated "but now that I know I'm dying it is the best place for me, and I won't leave."
--- NOTE | 2018-05-18 13:14 | NUR ---
Spoke with Dr. Steward regarding patients request for additional pain medication.
--- NOTE | 2018-05-18 13:17 | NUR ---
Sports Statistician in to talk to patient. Patient states lives at HOME with ALONE WITH BOYFRIEND AND DAUGHTER LOOKING IN ON HER AND HELPING HER. There are NO steps in the home. Physician: TASHA Pharmacy: [facility] Home health services:NONE Patient's level of ADLs: INDEPENDENT Patient has working utilities: YES DME: NONE Follow-up physician's appointment after d/c: WILL BE MADE ON DISCHARGE Does patient want to access PORTAL?: NO Discharge plan PT STATES SHE LIVES ALONE AT [facility] AND HER BOYFRIEND AND DAUGHTER HELP HER WHEN SHE NEEDS IT. DISCUSSED HOME HEALTH WITH PT BUT SHE DENIES ANY NEEDS AT THIS TIME. CAN BE DISCHARGED TO HOME WHEN MEDICALLY STABLE.. PAMELA GAINES
--- NOTE | 2018-05-18 13:35 | NUR ---
Dr. Leary at patients bedside. Patient c/o pain, stated she wants to go back to SNF. See new orders.
--- NOTE | 2018-05-18 14:24 | NUR ---
Patient is very upset about getting Motrin to releive pain. Will monitor.
--- NOTE | 2018-05-18 15:14 | NUR ---
Spoke with [employer] Mayra and notified her that patient wants to return to SNF.
--- NOTE | 2018-05-18 15:47 | NUR ---
Per patient c/o hemmorhoid pain contacted Dr. Steward. See new orders.
[2018-05-18 16:00] VITALS: BP 118/76
--- NOTE | 2018-05-18 16:15 | NUR ---
PT HAS NOW DECIDED SHE WANTS TO GO BACK TO [facility] ON DISCHARGE. WILL INFORM DC KEYBOARD INSTRUMENT REPAIRER IN AM TO SEE IF WE CAN GET HER ACCEPTED.
[2018-05-18 20:00] VITALS: BP 118/67
[2018-05-19] VITALS: BP 122/59
[2018-05-19 02:00] VITALS: BP 105/54
--- NOTE | 2018-05-19 04:37 | NUR ---
MOTRIN GIVEN FOR C/O PAIN. SEE EMAR. REINFORCED USE OF CALL LIGHT
[2018-05-19 06:42] LABS: BASO % 0.6 % (0.0-1.0); EOS % 1.2 % (1.0-4.0); HEMATOCRIT 31.9 % (37.0-47.0); LYMPH # 1.5 10*3/uL (1.3-4.4); MEAN CELL VOLUME 93.5 fl (81.0-99.0); MEAN CORPUSCULAR HGB 29.3 pg (27.0-31.0); MEAN CORPUSCULAR HGB CONC 31.3 g/dl (33.0-37.0); MEAN PLATELET VOLUME 9.7 fl (9.6-12.3); MONO # 0.4 10*3/uL (0.1-1.0); MONO % 10.8 % (3.0-9.0); NEUT # 1.5 10*3/uL (2.3-7.9); NEUT % 43.8 % (47.0-73.0); PLATELET COUNT AUTOMATED 118 10*3/uL (130-400); RED BLOOD COUNT 3.41 10*6/uL (4.10-5.10); RED CELL DISTRI WIDTH 17.4 % (0-14.5); WHITE BLOOD COUNT 3.4 10*3/uL (4.8-10.8)
[2018-05-19 06:58] LABS: BUN 4 mg/dl (7-24); CHLORIDE 106 mmol/L (98-107); CREATININE 0.66 mg/dL (0.55-1.02); SODIUM 138 mmol/L (136-145)
[2018-05-19 07:04] LABS: POTASSIUM 4.3 mmol/L (3.5-5.1)
--- NOTE | 2018-05-19 09:18 | NUR ---
Occupational Therapy evalaution completed on 4 with full eval to follow. Precautions include isolation precautions, impulsivity, IV UE, fall risk; inconsistant mobility performance, anxiety. Patient is moderate complexity level 06264 via chart review, testing and eval. Recommend OT per pOC and SNF to enable return home alone and indep. Thank you for this referral. Gem Munson OTR/L
--- NOTE | 2018-05-19 09:22 | NUR ---
PHYSICAL THERAPY Patient evaluated on 4, full evaluation to follow. Continue with PT as per plan of care with fall and multiple painful sites precautions. MAy require SNF. PAtient is moderate complexity via chart review, tests and evaluation: 43134. Thank you for this referral. Keara Ortiz,PT
--- NOTE | 2018-05-19 09:48 | NUR ---
Requests pain med and nausea med. US was called to check if pt. was able to take po med. OK to give. pt. was medicated for pain and nausea. Expressed wish to go to [facility] on discharge stating she is afraid to go home. Then cqlled out stating that she herself called [facility] and was told they would take her back.
--- NOTE | 2018-05-19 11:06 | NUR ---
Patient requested referral to [facility], contacted facility and faxed referral, waiting on review/acceptance and precert.
[2018-05-19 12:00] VITALS: BP 116/70
--- NOTE | 2018-05-19 13:28 | NUR ---
Returned from radiology. Dressing to rt. abdomen dry and intact. Lunch ordered. and taken well. Requests to wash up after meal.
--- NOTE | 2018-05-19 15:14 | NUR ---
Motrin given for generalized discomfort.
[2018-05-19 16:00] VITALS: BP 117/89
--- NOTE | 2018-05-19 18:18 | NUR ---
Called into room x 2 stating " i think Im going to have a seizure, my hands are cramping" Explained possible side effect of fluid loss re: parecentesis. States sheneeded a muscle relaxer. 2nd called again stating she needs something, she is afraid she is going to have a seizure, stated " I need ativan or something" Reassurance offered. Dr. Steward was notified .
[2018-05-19 20:00] VITALS: BP 119/83
[2018-05-20] VITALS: BP 112/73
[2018-05-20 05:54] LABS: BASO % 0.9 % (0.0-1.0); EOS # 0.1 10*3/uL (0.0-0.4); EOS % 1.7 % (1.0-4.0); HEMATOCRIT 32.3 % (37.0-47.0); HEMOGLOBIN 9.9 g/dl (12.0-16.0); LYMPH # 1.5 10*3/uL (1.3-4.4); LYMPH % 42.6 % (27.0-41.0); MEAN CELL VOLUME 94.2 fl (81.0-99.0); MEAN CORPUSCULAR HGB 28.9 pg (27.0-31.0); MEAN CORPUSCULAR HGB CONC 30.7 g/dl (33.0-37.0); MEAN PLATELET VOLUME 10.2 fl (9.6-12.3); MONO # 0.4 10*3/uL (0.1-1.0); MONO % 11.1 % (3.0-9.0); NEUT # 1.5 10*3/uL (2.3-7.9); NEUT % 43.4 % (47.0-73.0); PLATELET COUNT AUTOMATED 124 10*3/uL (130-400); RED BLOOD COUNT 3.43 10*6/uL (4.10-5.10); RED CELL DISTRI WIDTH 17.3 % (0-14.5); WHITE BLOOD COUNT 3.5 10*3/uL (4.8-10.8)
[2018-05-20 05:59] LABS: BUN 6 mg/dl (7-24); CHLORIDE 106 mmol/L (98-107); CREATININE 0.83 mg/dL (0.55-1.02); POTASSIUM 4.1 mmol/L (3.5-5.1); SODIUM 139 mmol/L (136-145)
--- NOTE | 2018-05-20 06:11 | NUR ---
NOTIFIED OF CRITICAL AMMONIA LEVEL OF 67
--- NOTE | 2018-05-20 07:51 | NUR ---
PT MEDICATED WITH ZOFRAN 4MG IV FOR C/O NAUSEA.
[2018-05-20 08:00] VITALS: BP 124/84
--- NOTE | 2018-05-20 09:10 | NUR ---
PHYSICAL THERAPY Patient seen this am 1:1 for therapy visit and was supine in bed upon therapist arrival. Patient reports generalized muscle / joint discomfort and stiffness while transfering supine to sit EOB, Min A. Patient completed seated B LE therex, all planes x 10 reps each to improve LE ROM / strength, followed by sit to stand transfer, CGA x 1. Patient ambulates CLEANING VALIDATION CONSULTANT/MIN, ad laurie in isolation room, 25'x 2, demonstrating antalgic gait pattern and unsteady balance during 180 degree turns. Patient returned to supine in bed with mil fatigue and remained with call light, tray table and bed alarm as patient Nurse arrived for pain Meds. Will continue per POC as tolerated, total treatmen time 23 minutes. Jose Francisco Pope, HORIZONTAL DRILL OPERATOR
--- NOTE | 2018-05-20 09:30 | NUR ---
OT NOTE Pt was seen this A.M. 1:1 for 15 minute OT session. Upon arrival pt was supine in bed, pt identified by name and . While sitting EOB pt completed towel exercises in her LUE over all planes of motion for 1 X 10 to increase UE strength needed for increased I in self care tasks and functional transfers. Pt also completed AAROM to RUE over all planes of motion for 1 X 10 and educated pt on stretches for UE to increase and restore maximum functional use. Functional mobility completed around the room with Sari VARGAS and throughout pt had multiple LOB due to poor safety with turns, being impulsive, and having a narrow base of support. LOB was correct with modA. Pt transferred back into bed sit to suppine with SBA where she was left with call light in hand, tray table in place, and bed alarm activated for safety. Continue with rec D/C plan to SNF. JACKY Stanley/Drew
--- NOTE | 2018-05-20 10:54 | NUR ---
Patient has received auth to go to [facility]. She can go when medically stable for discharge.
[2018-05-20 12:00] VITALS: BP 112/76
--- NOTE | 2018-05-20 12:26 | NUR ---
PT CAN BE DISCHARGED TO [facility] WHEN MEDICALLY STABLE.
[2018-05-20] MEDS ORDERED: IBUPROFEN400 MG PO (13:34)
[2018-05-20] MEDS ORDERED: GABAPENTIN100 M2 PO (13:34)
[2018-05-20] MEDS ORDERED: ONDANSETRON4 MG/2 M3 PO (13:34)
[2018-05-20] MEDS ORDERED: ATARAX,VISTARIL50 MG PO (13:34)
[2018-05-20] MEDS ORDERED: ZOFRAN4 MG PO (13:36)
--- NOTE | 2018-05-20 13:59 | NUR ---
Patient is discharged to [facility] via [facility]. Patient requesting picker and sorter load and unload at 4PM. Contacted [facility] and scheduled picker and sorter load and unload for front lobby. Notified NH and nursing.
--- NOTE | 2018-05-20 15:38 | NUR ---
NURSE TO NURSE REPORT GIVEN TO LILLY COLON [facility].
--- NOTE | 2018-05-20 15:58 | NUR ---
Discharge instructions reviewed with patient/family. Patient receptive and verbalizes understanding. Follow-up care arranged. Written instructions given to patient/family. IV site and phototypesetting equipment monitor removed. Pt transported to [facility] via wheelchair. JEFF SUE
--- NOTE | 2018-05-23 07:27 | NUR ---
OCCUPATIONAL THERAPY CO-SIGN I approve of the Occupational Therapy notes written above. MALLORY MIRZA
--- NOTE | 2018-05-30 08:08 | NUR ---
PHYSICAL THERAPY CO-SIGN I approve of the Phyical Therapy notes written above. ERNST HUTTON PT
== END 2018-05-20 15:58 | disposition other institution (70) | DRG 432 ==
LOC: ED 08:20 → 4E 10:21
PROVIDERS: Emergency Medicine; Student in an Organized Health Care Education/Training Program; ADMIT Internal Medicine
PROC: 0W9G3ZZ Drainage of Peritoneal Cavity, Percutaneous Approach (ICD-10-PCS; principal; 2018-05-19)
DX: K70.31 Alcoholic cirrhosis of liver with ascites (principal); E43 Unspecified severe protein-calorie malnutrition; D61.818 Other pancytopenia; E72.20 Disorder of urea cycle metabolism, unspecified; I50.32 Chronic diastolic (congestive) heart failure; E87.2 Acidosis; Z68.26 Body mass index [BMI] 26.0-26.9, adult; E87.6 Hypokalemia; E83.42 Hypomagnesemia; R00.0 Tachycardia, unspecified; R73.9 Hyperglycemia, unspecified; F12.10 Cannabis abuse, uncomplicated; F10.10 Alcohol abuse, uncomplicated; B19.20 Unspecified viral hepatitis C without hepatic coma; G89.29 Other chronic pain; G40.909 Epilepsy, unspecified, not intractable, without status epilepticus; F32.9 Major depressive disorder, single episode, unspecified; R29.6 Repeated falls; M19.90 Unspecified osteoarthritis, unspecified site; I11.0 Hypertensive heart disease with heart failure; F41.1 Generalized anxiety disorder; K21.9 Gastro-esophageal reflux disease without esophagitis; E03.9 Hypothyroidism, unspecified; I25.2 Old myocardial infarction; Z82.49 Family history of ischemic heart disease and other diseases of the circulatory system; Z88.6 Allergy status to analgesic agent; Z79.899 Other long term (current) drug therapy

== ENCOUNTER → 2018-05-30 | Day surgery (SDC) | payer OTHER ==
[~2018-05-30] MED LIST changes: +ATARAX,VISTARIL50 MG PO; +CARAFATE1 G1 PO; +DOXEPIN HCL100 MG PO; +FLEET MINERAL133 ML PO; +GABAPENTIN100 M2 PO; +IBUPROFEN400 MG PO; +LEVOTHYROXINE75 MCG PO; +MAGNESIUM OXID400 MG PO; +MILK OF MA400 MG/5 M PO; +MORPHINE SULFAT15 M7 PO; +ONDANSETRON4 MG/2 M3 PO; +PRILOSEC20 M1 PO; +TYLENOL325 M1 PO
== END | disposition home or self-care (01) ==
DX: R18.8 Other ascites (principal); K74.60 Unspecified cirrhosis of liver; F31.9 Bipolar disorder, unspecified; I11.0 Hypertensive heart disease with heart failure; I50.32 Chronic diastolic (congestive) heart failure; G40.909 Epilepsy, unspecified, not intractable, without status epilepticus; F41.9 Anxiety disorder, unspecified; M19.90 Unspecified osteoarthritis, unspecified site; F12.10 Cannabis abuse, uncomplicated; F10.10 Alcohol abuse, uncomplicated; Z88.8 Allergy status to other drugs, medicaments and biological substances

== ENCOUNTER 2018-06-06 22:38 | Inpatient (IN) | payer OTHER ==
[~2018-06-06] VITALS: Ht 165.1 cm; Wt 74.4 kg
--- NOTE | ~2018-06-06 | EKG ---
[place], [place] ELECTROCARDIOGRAM REPORT NAME: ENEIDA LORENZ UNIT #: [id number] ROOM: 508 DOCTOR: DAVIS DRAFT REPORT BIRTHDATE: [birth year] [facility] Test Date: 2018-06-07 Test Time: 04:44:08 Pat Name: ENEIDA LORENZ Department: Room: 508 Gender: F Client Reporting Associate: : 1965 Requested By: ROBERTA VERDUZCO Order Number: [id number] Reading MD: Kendra Adams MD Measurements Intervals [place] Rate: 81 P: 68 [place]: 172 QRS: 55 QRSD: 76 T: 59 QT: 402 QTc: 467 Interpretive Statements Sinus rhythm Anterior infarct, old Compared to ECG 05/17/2018 15:50:32 Myocardial infarct finding now present Sinus tachycardia no longer present Electronically Signed On 06-08-2018 8:23:48 PST by Kendra Adams MD CM:EKGRPT:ELECTROCARDIOGRAM REPORT 0444 0823 ROBERTA CANNON DRAFT REPORT ROBERTA VERDUZCO
--- NOTE | ~2018-06-06 | EKG ---
[place], [place] ELECTROCARDIOGRAM REPORT NAME: ENEIDA LORENZ UNIT #: [id number] ROOM: 508 DOCTOR: DAVIS DRAFT REPORT BIRTHDATE: [birth year] [facility] Test Date: 2018-06-07 Test Time: 01:35:28 Pat Name: ENEIDA LORENZ Department: ER Room: 508 Gender: F Bag Printer: Maya Llanos : 1965 Requested By: ROBERTA VERDUZCO Order Number: [id number] Reading MD: Kendra Adams MD Measurements Intervals [place] Rate: 83 P: 71 [place]: 160 QRS: 45 QRSD: 82 T: 69 QT: 407 QTc: 479 Interpretive Statements Sinus rhythm Low voltage, precordial leads Compared to ECG 05/17/2018 15:50:32 Sinus tachycardia no longer present Electronically Signed On 06-08-2018 8:23:39 PST by Kendra Adams MD CM:EKGRPT:ELECTROCARDIOGRAM REPORT 0135 0823 ROBERTA CANNON DRAFT REPORT ROBERTA VERDUZCO
--- NOTE | ~2018-06-06 | EKG ---
[place], [place] ELECTROCARDIOGRAM REPORT NAME: ENEIDA LORENZ UNIT #: [id number] ROOM: 508 DOCTOR: DAVIS DRAFT REPORT BIRTHDATE: [birth year] [facility] Test Date: 2018-06-06 Test Time: 22:40:47 Pat Name: ENEIDA LORENZ Department: Room: 508 Gender: F Recapper: Maya Llanos : 1965 Requested By: ROBERTA VERDUZCO Order Number: [id number] Reading MD: Kendra Adams MD Measurements Intervals [place] Rate: 100 P: 48 [place]: 151 QRS: 25 QRSD: 82 T: 56 QT: 383 QTc: 494 Interpretive Statements Sinus tachycardia Borderline prolonged QT interval Baseline wander in lead(s) V5 Compared to ECG 05/17/2018 15:50:32 No significant changes Electronically Signed On 06-08-2018 8:22:15 PST by Kendra Adams MD CM:EKGRPT:ELECTROCARDIOGRAM REPORT 0822 ROBERTA CANNON DRAFT REPORT ROBERTA VERDUZCO
[~2018-06-06 22:38] MED LIST changes: -CARAFATE1 G1 PO; -DOXEPIN HCL100 MG PO; -FLEET MINERAL133 ML PO; -LEVOTHYROXINE75 MCG PO; -MAGNESIUM OXID400 MG PO; -MILK OF MA400 MG/5 M PO; -MORPHINE SULFAT15 M7 PO; -PRILOSEC20 M1 PO; -TYLENOL325 M1 PO
[2018-06-06 22:51] VITALS: BP 116/72
[2018-06-06 23:03] LABS: BASO % 0.8 % (0.0-1.0); EOS # 0.2 10*3/uL (0.0-0.4); EOS % 3.6 % (1.0-4.0); HEMATOCRIT 32.8 % (37.0-47.0); HEMOGLOBIN 10.5 g/dl (12.0-16.0); LYMPH # 1.7 10*3/uL (1.3-4.4); LYMPH % 34.3 % (27.0-41.0); MEAN CELL VOLUME 88.6 fl (81.0-99.0); MEAN CORPUSCULAR HGB 28.4 pg (27.0-31.0); MEAN PLATELET VOLUME 10.5 fl (9.6-12.3); MONO # 0.6 10*3/uL (0.1-1.0); MONO % 11.8 % (3.0-9.0); NEUT # 2.5 10*3/uL (2.3-7.9); NEUT % 49.3 % (47.0-73.0); PLATELET COUNT AUTOMATED 152 10*3/uL (130-400); RED CELL DISTRI WIDTH 16.1 % (0-14.5); WHITE BLOOD COUNT 5.1 10*3/uL (4.8-10.8)
[2018-06-06 23:23] LABS: ALBUMIN 2.5 gm/dl (3.1-4.5); ALKALINE PHOSPHATASE 121 U/L (45-117); BUN 8 mg/dl (7-24); CHLORIDE 103 mmol/L (98-107); CREATININE 0.85 mg/dL (0.55-1.02); POTASSIUM 3.5 mmol/L (3.5-5.1); SGOT/AST 35 IU/L (3-35); SGPT/ALT 18 U/L (12-78); SODIUM 137 mmol/L (136-145); TOTAL PROTEIN 6.4 gm/dL (6.4-8.2)
[2018-06-06 23:24] LABS: LIPASE 102 U/L (73-393)
[2018-06-06 23:24] LABS: TROPONIN I < 0.015 ng/ml (<0.045)
[2018-06-07] VITALS (7 sets, daily range): BP systolic 90–148; BP diastolic 54–90
[2018-06-07] MEDS ORDERED: TYLENOL325 M1 PO (03:40)
[2018-06-07] MEDS ORDERED: ATIVAN0.5 MG PO (03:41)
[2018-06-07] MEDS ORDERED: MAGNESIUM OXID400 MG PO (03:56)
[2018-06-07] MEDS ORDERED: LEVOTHYROXINE75 MCG PO (03:58)
[2018-06-07] MEDS ORDERED: DOXEPIN HCL100 MG PO (04:03)
[2018-06-07] MEDS ORDERED: DULCOLAX10 M1 R (04:07)
[2018-06-07] MEDS ORDERED: MORPHINE SULFAT15 M7 PO (04:08)
[2018-06-07] MEDS ORDERED: PRILOSEC20 M1 PO (04:10)
[2018-06-07] MEDS ORDERED: MILK OF MA400 MG/5 M PO (04:15)
[2018-06-07] MEDS ORDERED: FLEET MINERAL133 ML PO (04:19)
[2018-06-07] MEDS ORDERED: KLOR-CON M2020 ME1 PO (04:28)
[2018-06-07 05:49] LABS: BUN 9 mg/dl (7-24); CHLORIDE 102 mmol/L (98-107); PHOSPHOROUS 4.4 mg/dL (2.5-4.9); POTASSIUM 3.3 mmol/L (3.5-5.1); SGOT/AST 31 IU/L (3-35); SGPT/ALT 18 U/L (12-78); SODIUM 138 mmol/L (136-145); TOTAL PROTEIN 6.4 gm/dL (6.4-8.2)
[2018-06-07 05:50] LABS: ALBUMIN 2.5 gm/dl (3.1-4.5); ALKALINE PHOSPHATASE 123 U/L (45-117)
[2018-06-07 06:23] LABS: BASO % 0.7 % (0.0-1.0); EOS # 0.2 10*3/uL (0.0-0.4); EOS % 3.9 % (1.0-4.0); HEMATOCRIT 32.7 % (37.0-47.0); HEMOGLOBIN 10.2 g/dl (12.0-16.0); LYMPH # 1.3 10*3/uL (1.3-4.4); LYMPH % 29.3 % (27.0-41.0); MEAN CELL VOLUME 88.9 fl (81.0-99.0); MEAN CORPUSCULAR HGB 27.7 pg (27.0-31.0); MEAN CORPUSCULAR HGB CONC 31.2 g/dl (33.0-37.0); MONO # 0.5 10*3/uL (0.1-1.0); NEUT # 2.4 10*3/uL (2.3-7.9); NEUT % 53.6 % (47.0-73.0); PLATELET COUNT AUTOMATED 140 10*3/uL (130-400); RED BLOOD COUNT 3.68 10*6/uL (4.10-5.10); RED CELL DISTRI WIDTH 16.1 % (0-14.5); WHITE BLOOD COUNT 4.4 10*3/uL (4.8-10.8)
[2018-06-07 07:05] LABS: ACT PARTIAL THROMBO TIME 27.6 SECONDS (20.8-31.5)
[2018-06-07 13:40] LABS: BODY FLUID WBC 238 /uL
[2018-06-07 14:22] LABS: BF LYMPHOCYTES 19 %; BF MACROPHAGES 53 %; BF MESOTHELIALS 21 %; BF NEUTROPHILS 7 %
[2018-06-08] VITALS: BP 109/77
[2018-06-08 07:50] LABS: ALBUMIN 2.2 gm/dl (3.1-4.5); ALKALINE PHOSPHATASE 115 U/L (45-117); BUN 7 mg/dl (7-24); CHLORIDE 108 mmol/L (98-107); CREATININE 0.53 mg/dL (0.55-1.02); SGOT/AST 31 IU/L (3-35); SGPT/ALT 16 U/L (12-78); SODIUM 141 mmol/L (136-145); TOTAL PROTEIN 5.7 gm/dL (6.4-8.2)
[2018-06-08 08:00] VITALS: BP 116/78
[2018-06-08 12:00] VITALS: BP 129/76
[2018-06-08] MEDS ORDERED: CARAFATE1 G1 PO (14:22)
== END 2018-06-08 15:40 | DRG 432 ==
LOC: ED 22:38 → 5E 06-07 02:44 → EDHOLD 06-07 02:44 → 5E 06-07 02:54
PROVIDERS: Emergency Medicine; Family Medicine; Registered Nurse Orthopedic; Student in an Organized Health Care Education/Training Program; ADMIT Internal Medicine
PROC: 0W9G3ZZ Drainage of Peritoneal Cavity, Percutaneous Approach (ICD-10-PCS; principal; 2018-06-07)
DX: K70.31 Alcoholic cirrhosis of liver with ascites (principal); E43 Unspecified severe protein-calorie malnutrition; I50.32 Chronic diastolic (congestive) heart failure; E87.6 Hypokalemia; B18.2 Chronic viral hepatitis C; D64.9 Anemia, unspecified; F31.9 Bipolar disorder, unspecified; R73.9 Hyperglycemia, unspecified; R07.9 Chest pain, unspecified; I10 Essential (primary) hypertension; M19.90 Unspecified osteoarthritis, unspecified site; I11.0 Hypertensive heart disease with heart failure; K21.9 Gastro-esophageal reflux disease without esophagitis; F41.1 Generalized anxiety disorder; R16.1 Splenomegaly, not elsewhere classified; Z66 Do not resuscitate; Z51.5 Encounter for palliative care; K62.3 Rectal prolapse; E53.8 Deficiency of other specified B group vitamins; E03.9 Hypothyroidism, unspecified; G89.29 Other chronic pain; G40.909 Epilepsy, unspecified, not intractable, without status epilepticus; K29.40 Chronic atrophic gastritis without bleeding; Z88.6 Allergy status to analgesic agent; Z88.8 Allergy status to other drugs, medicaments and biological substances; I25.2 Old myocardial infarction; Z87.891 Personal history of nicotine dependence; Z82.49 Family history of ischemic heart disease and other diseases of the circulatory system; Z81.8 Family history of other mental and behavioral disorders; Z79.899 Other long term (current) drug therapy; Z68.27 Body mass index [BMI] 27.0-27.9, adult

== ENCOUNTER → 2018-06-15 | Day surgery (SDC) | payer OTHER ==
[~2018-06-15] MED LIST changes: +CARAFATE1 G1 PO; +DOXEPIN HCL100 MG PO; +FLEET MINERAL133 ML PO; +LEVOTHYROXINE75 MCG PO; +MAGNESIUM OXID400 MG PO; +MILK OF MA400 MG/5 M PO; +MORPHINE SULFAT15 M7 PO; +PRILOSEC20 M1 PO; +TYLENOL325 M1 PO
== END | disposition home or self-care (01) ==
DX: R18.8 Other ascites (principal); Z88.8 Allergy status to other drugs, medicaments and biological substances

== ENCOUNTER → 2018-07-05 | Day surgery (SDC) | payer OTHER ==
[2018-07-05 12:03] LABS: INTERNATIONAL NORM RATIO 1.2 (2.0-3.5)
== END | disposition home or self-care (01) ==
PROVIDERS: Internal Medicine
DX: R18.8 Other ascites (principal); K74.60 Unspecified cirrhosis of liver; Z88.8 Allergy status to other drugs, medicaments and biological substances